=== PATIENT | female | born 1950 | race Caucasian/White ===

== ENCOUNTER 2021-03-25 09:22 | Outpatient (REF) | payer OTHER, SELFPAY ==
[2021-03-25 10:59] LABS: MANUAL DIFF FLAG NO
[2021-03-25 11:03] LABS: Basophils Percent Auto 0.3 % (0-2); Eosinophils Absolute Auto 0.3 X10*3/uL (0.0-0.4); Eosinophils Percent Auto 3.1 % (0-4); Hematocrit 34.8 % (37.0-47.0); Hemoglobin 11.5 g/dl (12.0-16.0); Imm Gran Abs Auto 0.05 X10*3/uL (0.00-0.03); Imm Gran Pct Auto 0.5 % (0.0-0.4); Lymphocytes Absolute Auto 2.5 X10*3/uL (1.2-4.9); Lymphocytes Percent Auto 25.7 % (20-40); Mean Corpuscular Hemoglobin 28.5 pg (27.0-33.0); Mean Corpuscular Volume 86.4 fL (80.0-98.0); Mean Platelet Volume 9.3 fL (9.4-12.3); Monocytes Absolute Auto 0.7 X10*3/uL (0.1-1.2); Monocytes Percent Auto 7.2 % (2-11); Neutrophils Absolute Auto 6.2 x10*3/uL (2.0-8.3); Neutrophils Percent Auto 63.2 % (45-73); Platelet Count 220 X10*3/uL (160-400); Red Blood Count 4.03 X10*6/uL (4.20-5.50); Red Cell Distribution Width 13.8 % (11.0-16.0); White Blood Count 9.7 X10*3/uL (4.8-10.8)
[2021-03-25 11:37] LABS: Alanine Aminotransferase 40 U/L (0-31); Albumin Level 4.4 g/dL (3.5-5.0); Alkaline Phosphatase 90 U/L (39-117); Anion Gap 15 (12-20); Aspartate Amino Transferase 27 U/L (5-31); Bilirubin Total 0.5 mg/dL (0.0-1.0); Blood Urea Nitrogen 10 mg/dL (9-16); Calcium 9.4 mg/dL (8.4-10.2); Carbon Dioxide 27 mmol/L (22-29); Chloride 104 mmol/L (96-108); Cholesterol 188 mg/dL; Estimated Glomerular Filt Rate > 60; Glucose Fasting 115 mg/dL (60-99); HDL Cholesterol 47 mg/dL; LDL Cholesterol Calculated 84 mg/dl; Potassium 4.3 mmol/L (3.3-5.1); Sodium 142 mmol/L (135-145); Total Protein 7.4 g/dL (6.5-8.0); Triglycerides 287 mg/dL
[2021-03-25 12:01] LABS: Free T4 (Free Thyroxine) 1.22 ng/dL (0.71-1.85); Thyroid Stimulating Hormone 4.78 uIU/mL (0.32-4.0); Vitamin D 25-OH Total 59.3 ng/mL (>30)
[2021-03-27 20:01] LABS: Triiodothyronine T3 Total 97 ng/dL (76-181)
== END 2021-03-25 09:23 | disposition home or self-care (01) ==
LOC: HO.WFDLDS 09:22
PROVIDERS: Visit Provider Family Medicine
DX: Z00.00 Encounter for general adult medical examination without abnormal findings (principal); E03.9 Hypothyroidism, unspecified; E55.9 Vitamin D deficiency, unspecified; I10 Essential (primary) hypertension
CPT/HCPCS: 36415; 80053; 80061; 82043; 82306; 84439; 84443; 84480; 85025

== ENCOUNTER 2021-06-16 12:40 | Outpatient (REF) | payer OTHER, SELFPAY ==
[2021-06-16 13:43] LABS: MANUAL DIFF FLAG NO
[2021-06-16 13:47] LABS: Basophils Percent Auto 0.3 % (0-2); Eosinophils Absolute Auto 0.4 X10*3/uL (0.0-0.4); Eosinophils Percent Auto 4.2 % (0-4); Hematocrit 34.4 % (37.0-47.0); Hemoglobin 11.4 g/dl (12.0-16.0); Imm Gran Abs Auto 0.07 X10*3/uL (0.00-0.03); Imm Gran Pct Auto 0.8 % (0.0-0.4); Lymphocytes Absolute Auto 2.4 X10*3/uL (1.2-4.9); Lymphocytes Percent Auto 26.9 % (20-40); Mean Corpuscular HGB Conc 33.1 g/dl (31.0-35.0); Mean Corpuscular Hemoglobin 28.3 pg (27.0-33.0); Mean Corpuscular Volume 85.4 fL (80.0-98.0); Mean Platelet Volume 9.4 fL (9.4-12.3); Monocytes Absolute Auto 0.6 X10*3/uL (0.1-1.2); Monocytes Percent Auto 6.2 % (2-11); Neutrophils Absolute Auto 5.6 x10*3/uL (2.0-8.3); Neutrophils Percent Auto 61.6 % (45-73); Platelet Count 240 X10*3/uL (160-400); Red Blood Count 4.03 X10*6/uL (4.20-5.50); Red Cell Distribution Width 13.9 % (11.0-16.0); White Blood Count 9.1 X10*3/uL (4.8-10.8)
[2021-06-16 13:57] LABS: Appearance Urine CLEAR; Color Urine YELLOW; Glucose Urine UA NEG (NEG); Leukocyte Esterase Urine 1+ (NEG); Nitrite Urine NEG (NEG); PH 5.5 (5.0-8.0); Specific Gravity - Urine 1.015 (1.005-1.025); Urine Blood NEG (NEG); Urine Ketones NEG (NEG); Urine Protein NEG (NEG-TRACE)
[2021-06-16 14:11] LABS: Estimated Average Glucose 148 mg/dL; Hemoglobin A1c % 6.8 %
[2021-06-16 14:17] LABS: RBC Urine 0-2 /HPF (0); Squamous Epithelial Cell Urine TRACE /LPF
[2021-06-16 14:23] LABS: Alanine Aminotransferase 31 U/L (0-31); Albumin Level 4.3 g/dL (3.5-5.0); Alkaline Phosphatase 86 U/L (39-117); Anion Gap 11 (12-20); Aspartate Amino Transferase 22 U/L (5-31); Bilirubin Total 0.4 mg/dL (0.0-1.0); Blood Urea Nitrogen 15 mg/dL (9-16); Calcium 9.7 mg/dL (8.4-10.2); Carbon Dioxide 30 mmol/L (22-29); Chloride 104 mmol/L (96-108); Estimated Glomerular Filt Rate > 60; Glucose Fasting 126 mg/dL (60-99); Potassium 4.4 mmol/L (3.3-5.1); Sodium 141 mmol/L (135-145); Total Protein 7.3 g/dL (6.5-8.0)
[2021-06-16 14:44] LABS: TSH reflex Free T4 1.75 uIU/mL (0.32-4.0)
== END 2021-06-16 12:41 | disposition home or self-care (01) ==
LOC: HO.WFDLDS 12:40
PROVIDERS: Visit Provider Family Medicine
DX: Z00.00 Encounter for general adult medical examination without abnormal findings (principal); I10 Essential (primary) hypertension; R73.01 Impaired fasting glucose
CPT/HCPCS: 36415; 80053; 81001; 83036; 84443; 85025

== ENCOUNTER 2022-06-11 12:44 | Outpatient (REF) | payer OTHER, SELFPAY ==
--- NOTE | ~2022-06-11 | XR_ITS ---
EXAMINATION: XR CHEST, 2 VIEWS CLINICAL INFORMATION: Cough, unspecified. COMPARISON: None. TECHNIQUE: PA and lateral views of the chest were obtained. FINDINGS: Lungs are clear. Mild elevation of the right hemidiaphragm. No consolidation, pneumothorax, or pleural effusion. Cardiac and mediastinal contours are normal. Pulmonary vasculature is unremarkable. Trachea is midline. Degenerative spondylosis is present in the thoracic spine, mild to moderate. No acute fractures. No acute osseous findings. XR/XR chest 2V IMPRESSION: No acute pulmonary findings.
[2022-06-11 15:15] LABS: Influenza A PCR NEGATIVE (Negative); Influenza B PCR NEGATIVE (Negative); Resp Syncy Virus RNA Qual PCR NEGATIVE (Negative); SARS COV2 PCR INHOUSE NEGATIVE (Negative)
== END 2022-06-11 12:45 | disposition home or self-care (01) ==
LOC: HO.XRAY 12:44
PROVIDERS: PCP Family Medicine; Visit Provider Family Medicine
DX: R05.9 Cough, unspecified (principal); E03.9 Hypothyroidism, unspecified; I10 Essential (primary) hypertension; R09.89 Other specified symptoms and signs involving the circulatory and respiratory systems; Z20.822 Contact with and (suspected) exposure to COVID-19
CPT/HCPCS: 0241U; 71046

== ENCOUNTER 2022-08-06 09:50 | Outpatient (REF) | payer OTHER, SELFPAY ==
[2022-08-06 11:53] LABS: Appearance Urine Clear; Color Urine Yellow; Glucose Urine UA Negative (Negative); Leukocyte Esterase Urine Moderate (2+) (Negative); Nitrite Urine Negative (Negative); PH 5.5 (5.0-9.0); UMIC TRIGGER UA YES; Urine Blood Negative (Negative); Urine Ketones Negative (Negative); Urine Protein Negative (Neg-Trace)
[2022-08-06 11:57] LABS: Bacteria Urine None Seen (None Seen); Hyaline Casts Urine 0-2 /LPF (0-2); RBC Urine 0-2 /HPF (0-2); Squamous Epithelial Cell Urine 0-2 /HPF (0-2)
[2022-08-06 12:18] LABS: Creatinine Urine 74.47 mg/dL; Microalbum/Creatinine Ratio Ur 13.4 ug/mg cr
[2022-08-06 12:35] LABS: Alanine Aminotransferase 20 U/L (0-31); Albumin Level 4.1 g/dL (3.5-5.0); Alkaline Phosphatase 82 U/L (39-117); Anion Gap 15 (12-20); Aspartate Amino Transferase 15 U/L (5-31); Bilirubin Total 0.5 mg/dL (0.0-1.0); Blood Urea Nitrogen 15 mg/dL (9-16); Carbon Dioxide 26 mmol/L (22-29); Chloride 106 mmol/L (96-108); Cholesterol 190 mg/dL; Estimated Glomerular Filt Rate > 60; Glucose Fasting 96 mg/dL (60-99); HDL Cholesterol 48 mg/dL; LDL Cholesterol Calculated 92 mg/dl; Potassium 4.6 mmol/L (3.3-5.1); Sodium 142 mmol/L (135-145); Total Protein 6.8 g/dL (6.5-8.0); Triglycerides 252 mg/dL
[2022-08-06 12:39] LABS: Free T4 (Free Thyroxine) 1.11 ng/dL (0.71-1.85); Thyroid Stimulating Hormone 0.71 uIU/mL (0.32-4.0)
[2022-08-08 10:14] LABS: Triiodothyronine T3 Total 118 ng/dL (76-181)
== END 2022-08-06 09:51 | disposition home or self-care (01) ==
LOC: HO.WFDLDS 09:50
PROVIDERS: Visit Provider Family Medicine
DX: Z00.00 Encounter for general adult medical examination without abnormal findings (principal); E03.9 Hypothyroidism, unspecified; R05.9 Cough, unspecified; I10 Essential (primary) hypertension
CPT/HCPCS: 36415; 80053; 80061; 81001; 82043; 84439; 84443; 84480

== ENCOUNTER 2022-08-13 16:15 | Outpatient (REF) | payer OTHER, SELFPAY ==
--- NOTE | ~2022-08-13 | XR_ITS ---
EXAMINATION: XR KNEE, LEFT CLINICAL INFORMATION: Pain COMPARISON: None available. TECHNIQUE: Three views of the left knee. FINDINGS: Bone alignment is normal. No fracture or dislocation. Mild joint space narrowing at the medial femoral tibial joint. Joint spaces are otherwise normal. No joint effusion. XR/XR knee LT 3V IMPRESSION: Mild joint space narrowing at the medial femoral tibial joint.
== END 2022-08-13 16:16 | disposition home or self-care (01) ==
LOC: HO.XRAY 16:15
PROVIDERS: PCP Family Medicine; Visit Provider Family Medicine
DX: M25.562 Pain in left knee (principal)
CPT/HCPCS: 73562

== ENCOUNTER 2022-09-15 08:35 | Outpatient (REF) | payer OTHER, SELFPAY ==
--- NOTE | ~2022-09-15 | XR_ITS ---
EXAMINATION: XR KNEE AP STANDING CLINICAL INFORMATION: Right knee pain. COMPARISON: None available. TECHNIQUE: AP bilateral standing view of the knees was obtained. FINDINGS: On this single view, no acute fracture or dislocation of the right or left knee is identified. There is narrowing of the medial joint space compartments bilaterally, right greater than left, with marginal spurring on the right. Bony density about the lateral aspect of the right knee may represent fabella. XR/XR knee standing BI IMPRESSION: Medial joint space compartment degenerative change.
== END 2022-09-15 08:36 | disposition home or self-care (01) ==
LOC: HO.HOSX 08:35
PROVIDERS: Visit Provider Physician Assistant
DX: M17.12 Unilateral primary osteoarthritis, left knee (principal)
CPT/HCPCS: 20610; 73565; J1020

== ENCOUNTER 2022-11-15 10:43 | Outpatient (AMB) | payer OTHER, SELFPAY ==
[2022-11-15 10:49] VITALS: BP 144/78; PULSE 84; RESP 12; TEMP 36.7; O2SAT 98; BMI 38.5
--- NOTE | 2022-11-15 10:49 | A.OFFPC_ITS ---
Vital Signs 11/15/22 10:49 Height 5 ft 1 in Weight 204 lb BMI 38.5 BP 144/78 H Blood Pressure Location Rt brachial Position Sitting Respiration 12 Pulse 84 Pulse Source Pulse Oximeter Temp 98.1 F Temp Source Temporal Artery Scan Pulse Oximetry (%) 98 Oxygen Delivery Method Room Air Intake Visit Reasons: f/u diabetes and chronic conditions Preparer Required: No Accompanied by: Self / Same As Patient Allergies erythromycin base Allergy (Unknown, Verified 11/15/22 10:55) unknown meperidine [From Demerol] Allergy (Unknown, Verified 11/15/22 10:55) Unknown morphine Allergy (Unknown, Verified 11/15/22 10:55) unknown Sulfa (Sulfonamide Antibiotics) Allergy (Unknown, Verified 11/15/22 10:55) unknown Tobacco use date assessed: 06/11/22 Fall risk assessment: No Falls in past year Last assessed Fall Risk: 11/15/22 Dental Screening Dental Screen Date: 11/15/22 Did you have a dental visit in the last 12 months?: No Did you have a dental problem in the last 6 months where you did not have access to dental care?: No Was dental information given to patient?: Patient has dentist HPI f/u diabetes and chronic conditions HPI Details 72 y/o female presents to f/u diabetes and chronic conditions. A1c today 11/15/22 is 6.1%. She is on metformin 500mg, Trulicity 0.75mg daily. Blood pressure today is 144/78. She is on losartan 50mg, metoprolol. She denies any problems with this medication regimen. She does not check her blood pressure at home. She states she could work on a better diet. She does not exercise much. HPI Comments History of Present Illness Details Documentation assistance for Vince Benavidez MD, was provided by Mehul Bright,? Operations Executive on 11/15/2022 11:18 AM NATALEE. I, Dr. Benavidez, have read, observed, and verified documentation.? 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 Sudeep Reyes, Lacie Dodd, Santana Hodges and colleagues, with an educational faustino from [employer]. Review of Systems Const Denies chills, Denies fatigue, Denies fever(s), Denies headache(s) and Denies weakness ENT Denies dizziness and Denies headache(s) Card Denies chest pain, Denies lightheadedness, Denies dyspnea and Denies other (Palpitations) Resp Denies cough, Denies dyspnea, Denies wheezing and Denies other ( shortness of breath) Musc Denies numbness and Denies tingling Neuro Denies dizziness, Denies headache(s), Denies numbness, Denies tingling, Denies paresthesias and Denies weakness Psych Denies anxiety and Denies depression Endo Denies fatigue Aller/Immun Denies wheezing Physical exam (Primary Care) Vital Signs: Last Vital Signs Temp 98.1 F 11/15/22 10:49 Pulse 84 11/15/22 10:49 Resp 12 11/15/22 10:49 BP 144/78 H 11/15/22 10:49 Pulse Ox 98 11/15/22 10:49 Oxygen Delivery Method Room Air 11/15/22 10:49 BMI result Body Mass Index 38.5 Tobacco/Smoking Status: Tobacco use Status Tobacco use date assessed 06/11/22 11/15/22 10:58 Patient Tobacco Use Status Never used Tobacco 11/15/22 10:58 e-Cigarette/Vaping Use Never Used 11/15/22 10:58 Thrive Assessment: Date of Thrive Assessment Date Thrive assessed 06/11/22 11/15/22 10:58 Const General: no acute distress and well developed Nutritional Appearance: well nourished Orientation/consciousness: patient oriented x3 HENMT Head: Yes normocephalic and Yes atraumatic Eyes General: appearance normal, both eyes and all related structures Pupils: Equal, round and reactive pupils present EOM: EOMs intact bilaterally Resp Effort & Inspection: normal respiratory effort Auscultation: clear to auscultation bilaterally Cardio Rate: regular rate Rhythm: regular rhythm Heart sounds: S1 normal heart sound present, S2 normal heart sound present, no gallops, no murmurs and no rubs Neuro General: patient oriented x3 and gait normal Cranial nerves: Yes Equal, round and reactive pupils present Psych Affect: normal affect Results AMB Hemoglobin A1c AMB Hemoglobin A1c 6.1 % Last Edit by Delicia Mendiola CMA on 11/15/22 11:18 Results Reviewed Results Reviewed: Laboratory Last Values Hgb A1c (Clinic) 6.1 % (4.0-6.0) H 11/15/22 11:17 Assessment and Plan Assessment & Plan (1) Diabetes mellitus: Code(s): E11.9 - Type 2 diabetes mellitus without complications Plan: A1c today 6.1%. Good control. Goal is less than 7.0% Continue current medication (2) Essential hypertension: Code(s): I10 - Essential (primary) hypertension Plan: Blood pressure is a little above her controlled range. No medication changes today. Work at diet and exercise Follow-up at next visit Orders: Orders AMB Hemoglobin A1c Today Z13.9 - Encounter for screening, unspecified Coding Level of Care Code Est Pt Level 3 (32385) Diagnoses Diabetes mellitus E11.9 Essential hypertension I10
== END 2022-11-15 11:25 | disposition home or self-care (01) ==
PROVIDERS: Visit Provider Family Medicine
DX: E11.9 Type 2 diabetes mellitus without complications (principal); I10 Essential (primary) hypertension; Z13.9 Encounter for screening, unspecified
CPT/HCPCS: 83036; 99213

== ENCOUNTER 2023-03-30 08:26 | Outpatient (AMB) | payer OTHER, SELFPAY ==
--- NOTE | 2023-03-30 08:27 | MHC.PC.OV ---
Vital Signs 03/30/23 08:37 Height 5 ft 1 in Weight 209 lb 2 oz BMI 39.5 BP 142/82 H Blood Pressure Location Rt brachial Position Sitting Respiration 12 Pulse 77 Pulse Source Pulse Oximeter Pulse Oximetry (%) 94 Oxygen Delivery Method Room Air Intake Visit Reasons: f/u diabetes and hypertension Intake Note: Patient is here to follow up for diabetes and hypertension. Patient's last A1C was 6.1 on 11/15/22. Patient's A1c today is 6.6. Patient would like to discuss metoprolol dose- she states she was taking 50mg prior to her last refill, then she was giving 25mg. She would like clarification. Patient is also here for ringing in the ears. She states she's had this ringing for several years however it has worsened over the last 6 months and driving her crazy. Senior Consultant Required: No Accompanied by: Self / Same As Patient Allergies erythromycin base Allergy (Unknown, Verified 03/30/23 08:43) unknown meperidine [From Demerol] Allergy (Unknown, Verified 03/30/23 08:43) Unknown morphine Allergy (Unknown, Verified 03/30/23 08:43) unknown Sulfa (Sulfonamide Antibiotics) Allergy (Unknown, Verified 03/30/23 08:43) unknown Medication List - Last Reconciled 03/30/23 by Vince Benavidez MD atorvastatin 40 mg PO DAILY 90 days blood sugar diagnostic (FreeStyle Lite Strips) DX: E11.9, test blood sugar once a day, 90 days blood-glucose meter (FreeStyle Lite Meter kit) DX: E11.9, test blood sugar once a day. 999days clonidine HCl 0.05 mg (1/2 x 0.1 mg) PO BID 90 days dulaglutide (Trulicity) 0.75 mg (0.5 mL) subcut QWEEK 28 days lancets (FreeStyle Lancets) To test blood sugar once a day As directed, 90 days levothyroxine 125 mcg PO DAILY losartan 50 mg PO BID 90 days metformin 500 mg PO DAILY 90 days metoprolol succinate ER 25 mg PO DAILY omeprazole 20 mg PO DAILY 90 days valacyclovir 500 mg PO DAILY venlafaxine 75 mg PO DAILY 90 days Tobacco use date assessed: 06/11/22 HPI f/u diabetes and hypertension HPI Details 72 y/o female presents to f/u diabetes and hypertension. Last A1c 7/17/23 6.1%. A1c today 03/30/23 is 6.6%. She reports last diabetic eye exam was in January and is up to date. Blood pressure today is 142/82. She is on losartan 50mg b.i.d, metoprolol 25mg and clonidine 0.05mg b.i.d. She has complaints of ringing in her ears. She has not had any hearing testing before. 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 Sudeep Reyes, Lacie Dodd, Santana Hodges and colleagues, with an educational faustino from [employer]. Review of Systems Const Denies chills, Denies fatigue, Denies fever(s), Denies headache(s) and Denies weakness ENT Denies dizziness and Denies headache(s) Card Denies dyspnea Resp Denies cough, Denies dyspnea, Denies wheezing and Denies other (shortness of breath) Musc Denies numbness and Denies tingling Neuro Denies dizziness, Denies headache(s), Denies numbness, Denies tingling and Denies weakness Psych Denies anxiety and Denies depression Endo Denies fatigue Aller/Immun Denies wheezing Physical exam (Primary Care) Vital Signs: Last Vital Signs Pulse 77 03/30/23 08:37 Resp 12 03/30/23 08:37 BP 142/82 H 03/30/23 08:37 Pulse Ox 94 03/30/23 08:37 Oxygen Delivery Method Room Air 03/30/23 08:37 BMI result Body Mass Index 39.5 Tobacco/Smoking Status: Tobacco use Status Tobacco use date assessed 06/11/22 03/30/23 08:29 Patient Tobacco Use Status Never used Tobacco 03/30/23 08:29 e-Cigarette/Vaping Use Never Used 03/30/23 08:29 Thrive Assessment: Date of Thrive Assessment Date Thrive assessed 06/11/22 03/30/23 08:29 Const General: well developed; No acute distress Nutritional Appearance: obese Orientation/consciousness: patient oriented x3 HENMT Head: Yes normocephalic and Yes atraumatic Eyes General: appearance normal, both eyes and all related structures Pupils: Equal, round and reactive pupils present EOM: EOMs intact bilaterally Resp Effort & Inspection: normal respiratory effort Auscultation: clear to auscultation bilaterally Cardio Rate: regular rate Rhythm: regular rhythm Heart sounds: S1 normal heart sound present, S2 normal heart sound present, no gallops, no murmurs and no rubs Neuro General: patient oriented x3 and gait normal Cranial nerves: Yes Equal, round and reactive pupils present Psych Affect: normal affect Results AMB Hemoglobin A1c AMB Hemoglobin A1c 6.6 % Last Edit by Ruth Velasquez CMA on 03/30/23 08:44 Results Reviewed Results Reviewed: Laboratory Last Values Hgb A1c (Clinic) 6.6 % (4.0-6.0) H 03/30/23 08:44 Assessment and Plan Assessment & Plan (1) Diabetes mellitus: Code(s): E11.9 - Type 2 diabetes mellitus without complications Plan: A1c?6.6%?is?good?control.??Goal?is?less?than?7.0% Continue?current?medication?regimen Up-to-date?with?eye?exam?which?was?in?January?with?Dr. Payan. Patient?reports?there?were?no?concerns?but?I?do?not?have?the?report?so?I?am?requesting?this. (2) Essential hypertension: Code(s): I10 - Essential (primary) hypertension Plan: Blood?pressure?is?a?little?elevated?again. Metoprolol?was?at?25?mg?daily?and?I?am?increasing?this?back?to?50?mg?daily (3) Tinnitus: Code(s): H93.19 - Tinnitus, unspecified ear Plan: Worsening?tinnitus.??Now?bilateral Will?send?her?to?speech?and?hearing?for?audiometry May?need?referral?to?ENT?or?imaging?though?we?discussed?that?there?is?often?not?much?that?can?be?done?for?idiopathic?tinnitus Advised?white?noise?when?sleeping Orders: Orders AMB Hemoglobin A1c Today Z13.9 - Encounter for screening, unspecified Medications: Changed From metoprolol succinate ER 25 mg PO DAILY 90 tabs 0RF To metoprolol succinate ER 50 mg PO DAILY 90 tabs 2RF 90 days Coding Level of Care Code Est Pt Level 4 (19369) Diagnoses Diabetes mellitus E11.9 Essential hypertension I10 Tinnitus H93.19
[2023-03-30 08:37] VITALS: BP 142/82; PULSE 77; RESP 12; O2SAT 94; BMI 39.5
== END 2023-03-30 09:12 | disposition home or self-care (01) ==
PROVIDERS: PCP Family Medicine; Visit Provider Family Medicine
DX: E11.9 Type 2 diabetes mellitus without complications (principal); I10 Essential (primary) hypertension; H93.13 Tinnitus, bilateral
CPT/HCPCS: 83036; 99214

== ENCOUNTER 2023-06-27 08:52 | Outpatient (AMB) | payer OTHER, SELFPAY ==
[2023-06-27 08:54] VITALS: BP 138/80; PULSE 78; RESP 13; TEMP 36.3; O2SAT 98; BMI 40.5
--- NOTE | 2023-06-27 08:54 | A.OFFPC_ITS ---
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 Required: No Accompanied by: Self / Same As Patient Allergies erythromycin base Allergy (Unknown, Verified 06/27/23 09:10) unknown meperidine [From Demerol] Allergy (Unknown, Verified 06/27/23 09:10) Unknown morphine Allergy (Unknown, Verified 06/27/23 09:10) unknown Sulfa (Sulfonamide Antibiotics) Allergy (Unknown, Verified 06/27/23 09:10) unknown Medication List - Last Reconciled 06/27/23 by Richmond Garcia CNP atorvastatin 40 mg PO DAILY 90 days blood sugar diagnostic (FreeStyle Lite Strips) DX: E11.9, test blood sugar once a day, 90 days blood-glucose meter (FreeStyle Lite Meter kit) DX: E11.9, test blood sugar once a day. 999days clonidine HCl 0.05 mg (1/2 x 0.1 mg) PO BID 90 days dulaglutide (Trulicity) 0.75 mg (0.5 mL) subcut QWEEK 28 days lancets (FreeStyle Lancets) To test blood sugar once a day As directed, 90 days levothyroxine 125 mcg PO DAILY losartan 50 mg PO BID 90 days metformin 500 mg PO DAILY 90 days metoprolol succinate ER 50 mg PO DAILY 90 days omeprazole 20 mg PO DAILY 90 days valacyclovir 500 mg PO DAILY venlafaxine 75 mg PO DAILY 90 days Tobacco use date assessed: 06/27/23 Fall risk assessment: 1 Fall in past year Last assessed Fall Risk: 06/27/23 Dental Screening Dental Screen Date: 06/27/23 Did you have a dental visit in the last 12 months?: Yes Did you have a dental problem in the last 6 months where you did not have access to dental care?: No Was dental information given to patient?: Patient has dentist HPI HPI Comments History of Present Illness Details 72-year-old female presents for diabetes and hypertension follow-up She admits to taking her medications as prescribed without adverse reactions She notes that her diet has been poor. She has been eating lots of carbs. 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 Sudeep Reyes, Lacie Dodd, Santana Hodges and colleagues, with an educational faustino from [employer]. Review of Systems Const Details: Const Denies chills, Denies fatigue, Denies fever(s), Denies headache(s) and Denies weakness ENT Denies dizziness and Denies headache(s) Card Denies chest pain, Denies lightheadedness, Denies dyspnea and Denies other (Palpitations) Resp Denies cough, Denies dyspnea, Denies wheezing and Denies other ( shortness of breath) GI Denies abdominal pain, Denies melena, Denies hematochezia, Denies change in bowel habits, Denies dyspepsia and Denies nausea Denies hematuria and Denies dysuria Musc Denies abnormal gait, Denies numbness and Denies tingling Skin/Breast Denies rash, Denies unusual bruising and Denies wounds Neuro Denies abnormal gait, Denies dizziness, Denies headache(s), Denies memory loss, Denies numbness, Denies Sensory deficit (Neuro), Denies tingling and Denies weakness Psych Denies anxiety, Denies depression, Denies memory loss Endo Denies cold intolerance, Denies fatigue, Denies heat intolerance, Denies polydipsia and Denies polyuria Aller/Immun Denies wheezing Physical exam (Primary Care) Vital Signs: Last Vital Signs Temp 97.3 F 06/27/23 08:54 Pulse 78 06/27/23 08:54 Resp 13 06/27/23 08:54 BP 138/80 06/27/23 08:54 Pulse Ox 98 06/27/23 08:54 Oxygen Delivery Method Room Air 06/27/23 08:54 BMI result Body Mass Index 40.5 Tobacco/Smoking Status: Tobacco use Status Tobacco use date assessed 06/27/23 06/27/23 09:06 Patient Tobacco Use Status Never used Tobacco 06/27/23 08:54 e-Cigarette/Vaping Use Never Used 06/27/23 08:54 Thrive Assessment: Date of Thrive Assessment Date Thrive assessed 06/11/22 06/27/23 08:54 Const Other: General: no acute distress and well developed Nutritional Appearance: well nourished Orientation/consciousness: patient oriented x3 HENMT Head: Yes normocephalic and Yes atraumatic Eyes General: appearance normal, both eyes and all related structures Pupils: Equal, round and reactive pupils present EOM: EOMs intact bilaterally Resp Effort & Inspection: normal respiratory effort Auscultation: clear to auscultation bilaterally Cardio Rate: regular rate Rhythm: regular rhythm Heart sounds: S1 normal heart sound present, S2 normal heart sound present, no gallops, no murmurs and no rubs GI Palpation (GI): No Abdominal aortic bruit present, Soft to palpation, nontender, No hepatosplenomegaly present and No Rebound tenderness present Auscultation: normal bowel sounds General: Yes no CVA tenderness Back/Spine/Pelvis Back: no CVA tenderness Cervical Spine: cervical ROM normal and No Cervical spine tenderness Thoracic/Lumbar Spine: thoraco-lumbar ROM normal, No pain with thoraco-lumbar ROM, No thoracic spinal tenderness and No lumbar spinal tenderness Extrem General: Yes normal to inspection, No edema and No calf tenderness Skin General: warm and dry. Normal skin color. Normal skin turgor Neuro General: patient oriented x3, gait normal and no focal neuro deficit Cranial nerves: Yes Equal, round and reactive pupils present Cognition (Neuro): normal cognition Gait exam (Neuro): Normal gait present Sensory Exam: No Sensory deficit (Neuro) Psych Appearance: grossly normal Affect: normal affect Attitude: cooperative Thought process: Normal thought process present Results AMB Hemoglobin A1c AMB Hemoglobin A1c 7.3 % Last Edit by Blanka Haynes MA on 06/27/23 09:12 Assessment and Plan Assessment & Plan (1) Essential hypertension: Code(s): I10 - Essential (primary) hypertension Plan: Resting blood pressure is 144/80, above goal of less than 130/80. Heart rate is 76 Will increase metoprolol ER to 75 mg daily. Take as prescribed Continue to take losartan as prescribed Low-sodium diet and routine exercise encouraged Advised to monitor blood pressure daily, reports readings consistently above 130/80 or below 100/60, heart rate below 60, or dizziness or lightheadedness Follow-up in 2 months for an extended physical exam and hypertension Return sooner with worsening or new symptoms Verbalized understanding and agreed with treatment plan (2) Diabetes mellitus: Code(s): E11.9 - Type 2 diabetes mellitus without complications Plan: A1c today is 7.3%, above goal of less than 7.0%. Previous A1c was 6.6% Will increase Trulicity to 1 mg weekly. Take as prescribed Continue to take metformin 500 mg daily ADA diet and routine exercise encouraged Follow-up with PCP in 3 months Verbalized understanding and agreed with treatment plan (3) Osteoarthritis of left knee: Code(s): M17.12 - Unilateral primary osteoarthritis, left knee Plan: Continue to take Tylenol as needed Warm/cold compresses encouraged Follow-up with Ortho as planned Return with worsening or new symptoms Verbalized understanding and agreed with treatment plan Orders: Orders AMB Hemoglobin A1c Today E11.9 - Type 2 diabetes mellitus without complications Medications: New metoprolol succinate ER Take with metoprolol 50 mg daily to equal 75 mg daily 25 mg PO DAILY 90 tabs 3RF 90 days metoprolol succinate ER 25 mg PO DAILY 90 days 90 tabs 3RF dulaglutide (Trulicity) 1 mg (0.3333 mL) subcut QWEEK 28 days 1.333 mL 3RF Discontinued dulaglutide (Trulicity) Discontinued Reason: Doctor's Order 0.75 mg (0.5 mL) subcut QWEEK 28 days 2 mL 4RF Coding Level of Care Code Est Pt Level 4 (01337) Diagnoses Essential hypertension I10 Diabetes mellitus E11.9 Osteoarthritis of left knee M17.12
[2023-06-27 09:16] VITALS: BP 144/80; PULSE 76
== END 2023-06-27 10:03 | disposition home or self-care (01) ==
PROVIDERS: PCP Family Medicine; Visit Provider Nurse Practitioner Family
DX: I10 Essential (primary) hypertension (principal); E11.9 Type 2 diabetes mellitus without complications; M17.12 Unilateral primary osteoarthritis, left knee
CPT/HCPCS: 83036; 99214

== ENCOUNTER 2023-07-25 10:52 | Outpatient (AMB) | payer OTHER, SELFPAY ==
--- NOTE | 2023-07-25 11:00 | MHC.OFFVIS ---
Intake Vital Signs 07/25/23 11:04 Height 5 ft 1 in Weight 214 lb BMI 40.4 Intake Visit Reasons: ov-Lt Knee Pain last injection 09/15/22 Intake Note: Inga olsen 72 year old female presents today for a follow up of left knee, last injection on 09/15/22. Patient reports last injection provided her with relief until about mid June. Allergies erythromycin base Allergy (Unknown, Verified 07/25/23 11:07) unknown meperidine [From Demerol] Allergy (Unknown, Verified 07/25/23 11:07) Unknown morphine Allergy (Unknown, Verified 07/25/23 11:07) unknown Sulfa (Sulfonamide Antibiotics) Allergy (Unknown, Verified 07/25/23 11:07) unknown HPI ov-Lt Knee Pain last injection 09/15/22 HPI Details 72-year-old female returns to the office today for a follow-up left knee pain. Her last injection was in August of 2022 she states she had results up until recently. She is able to participate in all activities without discomfort. She states over the last several weeks she has had difficulty with prolonged walking. She has pain with sitting to standing. 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 Current occupational exposures/hazards: No Cognitive needs: No Hearing needs: No Vision needs: Yes Review of Systems Const All systems reviewed & are unremarkable except as noted in HPI and below Physical Exam Vital Signs: BMI result Body Mass Index 40.4 Const General: cooperative, healthy appearing, comfortable, no acute distress, well developed and alert Orientation/consciousness: patient oriented x3 HEENT Head: Yes normal to inspection, Yes normocephalic and Yes atraumatic Eyes General: appearance normal, both eyes and all related structures Resp Effort & Inspection: normal respiratory effort and able to speak in complete sentences Cardio Rate: regular rate Peripheral pulses: Peripheral pulses 2+ throughout GI Palpation (GI): Soft to palpation Skin Lesions: no lesions Rashes: no rashes Neuro General: patient oriented x3 Extrem Other: Left knee skin intact, no erythema or joint effusion. Tenderness along the medial joint line. Full ROM with crepitus. Negative Bright?s. No ligamentous laxity. NVI. Office Procedures Joint Injection/Drain Joint Injection/Drain Primary Site: left knee Prep: site was prepped using aseptic technique, ethochloride spray was applied and injection warnings given Injected: 40 mg of, DepoMedrol, with 8 mL of, 1% plain lidocaine and in the joint Approach Used: anterolateral Procedure: The patient tolerated the procedure well and there was some relief with the local anesthesia Coding 15197 - Glenohumeral/Tronchanteric Bursa/Intraarticular Procedure code (CPT) selection complete Assessment & Plan Assessment & Plan (1) Osteoarthritis of left knee: Code(s): M17.12 - Unilateral primary osteoarthritis, left knee Qualifiers: Osteoarthritis type: primary Qualified Code(s): M17.12 - Unilateral primary osteoarthritis, left knee Plan We discussed options today which include steroid injection. They did consent to move forward with the injection in the right knee, which was tolerated well. I recommended rest, ice and elevation and OTC anti-inflammatories PRN for discomfort. She was also given a course of physical therapy in the office today, which she mentioned she will take to an outside facility as it is closer to her home. We also discussed their diabetes and the effect the steroid can have on their blood glucose levels; therefore, they will continue to monitor these very closely over the next 72 hours. If there are any concerns, they should report to the ED immediately. She will contact our office in 6-8 weeks if symptoms persist, otherwise, prn. Coding Level of Care Code Est Pt Level 3 (64451) Diagnoses Primary osteoarthritis of left knee M17.12 Osteoarthritis type: primary CPT Codes Coding - Joint 7: 19079 - Glenohumeral/Tronchanteric Bursa/Intraarticular ([id number])
[2023-07-25 11:04] VITALS: BMI 40.4
== END 2023-07-25 11:31 | disposition home or self-care (01) ==
PROVIDERS: PCP Family Medicine; Visit Provider Physician Assistant
DX: M17.12 Unilateral primary osteoarthritis, left knee (principal)
CPT/HCPCS: 20610; 99213

== ENCOUNTER → 2023-07-25 10:52 | Outpatient (BNVA) | payer OTHER, SELFPAY | PROVIDERS: PCP Family Medicine; Visit Provider Physician Assistant | DX: M17.12 Unilateral primary osteoarthritis, left knee (principal) | CPT/HCPCS: 20610; J1020 ==

== ENCOUNTER 2023-08-22 08:24 | Outpatient (AMB) | payer OTHER, SELFPAY ==
--- NOTE | 2023-08-22 08:29 | MHC.PC.OV ---
Vital Signs 08/22/23 08:37 Height 5 ft 1 in Weight 214 lb BMI 40.4 BP 130/70 Blood Pressure Location Lt brachial Position Sitting Respiration 14 Pulse 67 Pulse Source Pulse Oximeter Temp 98.6 F Temp Source Oral Pulse Oximetry (%) 97 Oxygen Delivery Method Room Air Intake Visit Reasons: f/u diabetes and hypertension Intake Note: Follow up diabetes and hypertension. Allergies erythromycin base Allergy (Unknown, Verified 08/22/23 08:31) unknown meperidine [From Demerol] Allergy (Unknown, Verified 07/25/23 11:07) Unknown morphine Allergy (Unknown, Verified 07/25/23 11:07) unknown Sulfa (Sulfonamide Antibiotics) Allergy (Unknown, Verified 07/25/23 11:07) unknown Medication List - Last Reconciled 08/22/23 by Vince Benavidez MD atorvastatin 40 mg PO DAILY 90 days blood sugar diagnostic (FreeStyle Lite Strips) DX: E11.9, test blood sugar once a day, 90 days blood-glucose meter (FreeStyle Lite Meter kit) DX: E11.9, test blood sugar once a day. 999days clonidine HCl 0.05 mg (1/2 x 0.1 mg) PO BID 90 days lancets (FreeStyle Lancets) To test blood sugar once a day As directed, 90 days levothyroxine 125 mcg PO DAILY losartan 50 mg PO BID 90 days metformin 500 mg PO DAILY 90 days metoprolol succinate ER 25 mg PO DAILY 90 days metoprolol succinate ER 50 mg PO DAILY 90 days omeprazole 20 mg PO DAILY 90 days semaglutide (Ozempic) 0.25 mg (0.368 mL) subcut QWEEK 28 days valacyclovir 500 mg PO DAILY venlafaxine 75 mg PO DAILY 90 days Tobacco use date assessed: 08/22/23 Fall risk assessment: 2 + Falls in past year Last assessed Fall Risk: 08/22/23 Dental Screening Dental Screen Date: 08/22/23 Did you have a dental visit in the last 12 months?: Yes Did you have a dental problem in the last 6 months where you did not have access to dental care?: No Was dental information given to patient?: Patient has dentist HPI f/u diabetes and hypertension HPI Details 72 y/o female presents to f/u diabetes, hypertension. Blood pressure today 130/70. She is on losartan 50mg, metoprolol. Pt notes she had been started on ozempic but had been barely able to tolerate this due to burping in the middle of the night. Pt reports ongoing L knee pain - continues to f/u for steroid injections. 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 1. Little interest or pleasure in doing things: not at all 2. Feeling down, depressed, or hopeless: nearly every day 3. Trouble falling or staying asleep, or sleeping too much: not at all 4. Feeling tired or having little energy: nearly every day 5. Poor appetite or overeating: not at all 6. Feeling bad about yourself - or that you are a failure or have let yourself or your family down: not at all 7. Trouble concentrating on things, such as reading the newspaper or watching television: not at all 8. Moving or speaking so slowly that other people could have noticed. Or the opposite - being so fidgety or restless that you have been moving around a lot more than usual: not at all 9. Thoughts that you would be better off or of hurting yourself in some way: not at all Total score: 6 Depression Screening Interpretation: Positive (Takes?venlafaxine.??Does?not?want?any?changes.??Stable) Depression Screening Done: Yes 19252 - PHQ-9 Billing: Yes Source: Developed by Drs. Sudeep Reyes, Lacie Dodd, Santana Hodges and colleagues, with an educational faustino from [employer]. Thrive Questionnaire Date Thrive assessed: 08/22/23 I am a: Patient What is your living situation today?: I have a steady place to live Within the past 12 months, did the food you bought not last and you didn't have the money to get more?: Never true Within the past 12 months, did you worry whether your food would run out before you got money to buy more?: Never true Do you have trouble paying for medicines?: No Do you have trouble getting transportation to medical appointments?: No Do you have trouble paying your heating and electricity bill?: No Do you have trouble taking care of your child, family member or friend?: No Do you have trouble with day-to-day activities such as bathing, preparing meals, shopping, managing finances, etc.?: No Are you currently unemployed and looking for a job?: No Are you interested in more education?: No Please select the resources that you would like help with: None Currently or been in a relationship where the following occur: no concerns reported THRIVE Score: 0 AUDIT C Alcohol Use Questionnaire (AUDIT-C) 1. How often do you have a drink containing alcohol?: Monthly or less 2. How many drinks containing alcohol do you have on a typical day when you are drinking?: 1 or 2 3. How often do you have six or more drinks on one occasion?: Never Total Score: 1 GORAN-7 AMB Questionnaire GORAN-7 Date GORAN - 7 assessed: 08/22/23 Feeling nervous, anxious, or on edge: 3 = Nearly every day Not being able to stop or control worryin = Not at all Worrying too much about different things: 3 = Nearly every day Trouble relaxin = Not at all Being so restless that it is hard to sit still: 0 = Not at all Becoming easily annoyed or irritable: 1 = Several days Feeling afraid as if something awful might happen: 0 = Not at all Total GORAN-7 score (0-4 normal; 5-9 mild; 10-14 moderate; 15-21 severe): 7 Source: Developed by Drs. Sudeep Reyes, Lacie Dodd, Santana Hodges and colleagues, with an educational faustino from [employer]. GORAN-7 Assessment Billing GORAN-7 Assessment Tool: GORAN-7 Assessment 30180 Review of Systems Const Denies chills, Denies fatigue, Denies fever(s), Denies headache(s) and Denies weakness ENT Denies dizziness and Denies headache(s) Card Denies dyspnea Resp Denies cough, Denies dyspnea, Denies wheezing and Denies other (shortness of breath) Musc Denies numbness and Denies tingling Neuro Denies dizziness, Denies headache(s), Denies numbness, Denies tingling and Denies weakness Psych Reports anxiety and Reports depression Endo Denies fatigue Aller/Immun Denies wheezing Physical exam (Primary Care) Vital Signs: Last Vital Signs Temp 98.6 F 08/22/23 08:37 Pulse 67 08/22/23 08:37 Resp 14 08/22/23 08:37 BP 130/70 08/22/23 08:37 Pulse Ox 97 08/22/23 08:37 Oxygen Delivery Method Room Air 08/22/23 08:37 BMI result Body Mass Index 40.4 Tobacco/Smoking Status: Tobacco use Status Tobacco use date assessed 08/22/23 08/22/23 08:38 Patient Tobacco Use Status Never used Tobacco 08/22/23 08:31 e-Cigarette/Vaping Use Never Used 08/22/23 08:31 PHQ-9: PHQ-9 Score PHQ-9: Total score 6 08/22/23 08:44 Depression Screening Interpretation: Positive (Takes?venlafaxine.??Does?not?want?any?changes.??Stable) Thrive Assessment: Date of Thrive Assessment Date Thrive assessed 08/22/23 08/22/23 08:38 Currently or been in a relationship where the following occur: no concerns reported Const General: well developed; No acute distress Nutritional Appearance: well nourished Orientation/consciousness: patient oriented x3 [facility] Head: Yes normocephalic and Yes atraumatic Eyes General: appearance normal, both eyes and all related structures Pupils: Equal, round and reactive pupils present EOM: EOMs intact bilaterally Resp Effort & Inspection: normal respiratory effort Neuro General: patient oriented x3 and gait normal Cranial nerves: Yes Equal, round and reactive pupils present Psych Affect: normal affect Assessment and Plan Assessment & Plan (1) Essential hypertension: Code(s): I10 - Essential (primary) hypertension Plan: Blood?pressure?is?controlled.??Goal?is?less?than?140/90 Continue?current?medication?regimen (2) Diabetes mellitus: Code(s): E11.9 - Type 2 diabetes mellitus without complications Plan: A1c?was?7.3%?about?2?months?ago?and?Trulicity?was?increased?but?she?was?unable?to?get?this. This?was?switched?to?Ozempic?and?she?is?having?more?difficulty?tolerating?the?Ozempic?due?to?GI?discomfort/upset. She?will?continue?at?current?dose.??Also?had?steroid?injection?at?knee?recently. A1c?may?still?be?elevated?at?next?check Encouraged?improved?diabetic?diet?and?exercise?as?tolerated. Recent?eye?exam.??I?do?not?have?the?most?recent?note?and?will?request?this (3) Left knee pain: Code(s): M25.562 - Pain in left knee Plan: Left?knee?pain?and?recent?steroid?injection?which?he?says?has?not?started?working?yet. She?is?hopeful?that?it?will?and?plans?to?get?more?exercise. Follow-up?with?ortho?as?recommended (4) Anxiety and depression: Code(s): F41.9 - Anxiety disorder, unspecified; F32.A - Depression, unspecified Plan: Anxiety?and?depression?which?are?controlled?with?venlafaxine. Patient?declines?any?changes?to?medication?or?other?interventions. Stable Orders: Orders Comprehensive [place]. Panel Fast Today Z00.00 - Encounter for general adult medical examination without abnormal findings Complete Blood Count Auto Diff Today Z00.00 - Encounter for general adult medical examination without abnormal findings Microalbumin, Random (w Creat) Today I10 - Essential (primary) hypertension Thyroid Stimulating Hormone Today E03.9 - Hypothyroidism, unspecified Lipid Panel Today Z00.00 - Encounter for general adult medical examination without abnormal findings UA and rflx microscopic Today Z00.00 - Encounter for general adult medical examination without abnormal findings Free T4 (Free Thyroxine) Today E03.9 - Hypothyroidism, unspecified Triiodothyronine T3 Total Today E03.9 - Hypothyroidism, unspecified Coding Level of Care Code Est Pt Level 4 (65649) Diagnoses Essential hypertension I10 Diabetes mellitus E11.9 Left knee pain M25.562 Anxiety and depression F41.9; F32.A Additional Codes GORAN-7 Assessment Billing - GORAN-7 Assessment Tool: GORAN-7 Assessment 96040 ([id number])
[2023-08-22 08:37] VITALS: BP 130/70; PULSE 67; RESP 14; TEMP 37; O2SAT 97; BMI 40.4
== END 2023-08-22 08:59 | disposition home or self-care (01) ==
PROVIDERS: PCP Family Medicine; Visit Provider Family Medicine
DX: I10 Essential (primary) hypertension (principal); E11.9 Type 2 diabetes mellitus without complications; M25.562 Pain in left knee; F41.9 Anxiety disorder, unspecified; F32.A Depression, unspecified
CPT/HCPCS: 99214

== ENCOUNTER 2023-10-14 09:30 | Outpatient (AMB) | payer OTHER, SELFPAY ==
--- NOTE | 2023-10-14 09:47 | MHC.OFFVIS ---
Vital Signs 10/14/23 09:48 Height 5 ft 1 in Weight 214 lb BMI 40.4 Intake Visit Reasons: OV-Left knee pain-follow up Intake Note: Inga is a 73 year old female who presents today for a follow up visit of her left knee pain s/p injection from 07/25/23. States injection did not helped and cont's to have pain.. Hx of DM. Allergies erythromycin base Allergy (Unknown, Verified 10/14/23 09:57) unknown meperidine [From Demerol] Allergy (Unknown, Verified 10/14/23 09:57) Unknown morphine Allergy (Unknown, Verified 10/14/23 09:57) unknown Sulfa (Sulfonamide Antibiotics) Allergy (Unknown, Verified 10/14/23 09:57) unknown HPI HPI OV-Left knee pain-follow up: Details: 73-year-old female who returns to the office today for a follow-up of left knee pain. She continues to have pain in her knee that is aggravated with ambulation. She has tried ice for her knee that worsened her pain. She had her last injection on 07/25/23 which did not provide her any relief. She would like to repeat the injection. She has a history of diabetes. 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 Current occupational exposures/hazards: No Cognitive needs: No Hearing needs: No Vision needs: Yes Review of Systems Const All systems reviewed & are unremarkable except as noted in HPI and below Physical Exam Vital Signs: BMI result Body Mass Index 40.4 Const General: cooperative, healthy appearing, comfortable, no acute distress, well developed and alert Orientation/consciousness: patient oriented x3 HEENT Head: Yes normal to inspection, Yes normocephalic and Yes atraumatic Eyes General: appearance normal, both eyes and all related structures Resp Effort & Inspection: normal respiratory effort and able to speak in complete sentences Cardio Rate: regular rate Peripheral pulses: Peripheral pulses 2+ throughout GI Palpation (GI): Soft to palpation Skin Lesions: no lesions Rashes: no rashes Neuro General: patient oriented x3 Extrem Other: Left knee skin intact, no erythema or joint effusion. Tenderness along the medial joint line. Full ROM with crepitus. Negative Bright?s. No ligamentous laxity. NVI. Office Procedures Joint Injection/Drain Joint Injection/Drain Primary Site: left knee Prep: site was prepped using aseptic technique, ethochloride spray was applied and injection warnings given Injected: 40 mg of, DepoMedrol, with 8 mL of, 1% plain lidocaine and in the joint Approach Used: anterolateral Procedure: The patient tolerated the procedure well and there was some relief with the local anesthesia Coding 16994 - Glenohumeral/Tronchanteric Bursa/Intraarticular Procedure code (CPT) selection complete Results Reviewed Results Reviewed: Xrays were obtained in the office today and personally reviewed by me of the left knee show mild oa Assessment & Plan Assessment & Plan (1) Osteoarthritis of left knee: Code(s): M17.12 - Unilateral primary osteoarthritis, left knee Category: Medical Qualifiers: Osteoarthritis type: primary Qualified Code(s): M17.12 - Unilateral primary osteoarthritis, left knee Plan We discussed options today, which include steroid injection. The patient did consent to move forward with the left knee injection, which was tolerated well. I recommended rest, ice, and elevation and OTC anti-inflammatories as needed for discomfort. If symptoms persist or worsen over the next 6-8 weeks, patient will contact the office, otherwise follow-up as needed. We will also obtain a prior authorization for gel injection of left knee. Orders: Orders XR knee LT 3V 10/14/23 M25.562 - Pain in left knee MR knee LT wo con 10/14/23 M17.12 - Unilateral primary osteoarthritis, left knee Patient Instructions: Scribed for Ariela Wood PA-C, by Pradip Hutson medical office asst, on 10/14/2023 at 9:30 AM EST.? I, Ariela Wood PA-C, have personally reviewed and agree with the information entered by the scribe. Coding Level of Care Code Est Pt Level 3 (73745) Diagnoses Primary osteoarthritis of left knee M17.12 Osteoarthritis type: primary CPT Codes Coding - Joint 7: 06926 - Glenohumeral/Tronchanteric Bursa/Intraarticular ([id number])
[2023-10-14 09:48] VITALS: BMI 40.4
== END 2023-10-14 10:35 | disposition home or self-care (01) ==
PROVIDERS: PCP Family Medicine; Visit Provider Physician Assistant
DX: M17.12 Unilateral primary osteoarthritis, left knee (principal)
CPT/HCPCS: 20610; 99213

== ENCOUNTER 2023-10-14 09:30 | Outpatient (REF) | payer OTHER, SELFPAY ==
--- NOTE | ~2023-10-14 | XR_ITS ---
EXAMINATION: XR KNEE, LEFT XR KNEE, LIMITED, RIGHT CLINICAL INFORMATION: Pain in the left knee. COMPARISON: X-rays of both knees 09/15/2022. X-rays of the left knee 08/13/2022. TECHNIQUE: AP upright both knees. Additional lateral patella view of the left knee. FINDINGS: LEFT KNEE: Medial compartment: Mild joint space narrowing, unchanged and indicative of mild osteoarthritis. Lateral compartment: Normal. Patellofemoral compartment: Normal. RIGHT KNEE AP UPRIGHT: Medial compartment: Joint space narrowing with marginal osteophytes, indicative of [id number] osteoarthritis. Lateral compartment: Unremarkable. Patellofemoral compartment: Cannot be evaluated on the AP projection. Surrounding bone and soft tissues are unremarkable. XR/XR knee LT 3V IMPRESSION: Left knee: Mild osteoarthritis unchanged. Right knee limited: [id number] osteoarthritis of the medial compartment.
== END 2023-10-14 09:31 | disposition home or self-care (01) ==
LOC: HO.HOSX 09:30
PROVIDERS: PCP Family Medicine; Visit Provider Physician Assistant
DX: M17.12 Unilateral primary osteoarthritis, left knee (principal)
CPT/HCPCS: 20610; 73562; J1010

== ENCOUNTER 2023-11-10 09:52 | Outpatient (REF) | payer OTHER, SELFPAY ==
[2023-11-10 11:33] LABS: MANUAL DIFF FLAG NO
[2023-11-10 11:41] LABS: Basophils Percent Auto 0.4 % (0-2); Eosinophils Absolute Auto 0.3 X10*3/uL (0.0-0.4); Eosinophils Percent Auto 3.2 % (0-4); Hematocrit 35.1 % (37.0-47.0); Hemoglobin 11.6 g/dl (12.0-16.0); Imm Gran Abs Auto 0.05 X10*3/uL (0.00-0.03); Imm Gran Pct Auto 0.6 % (0.0-0.4); Lymphocytes Absolute Auto 2.4 X10*3/uL (1.2-4.9); Lymphocytes Percent Auto 29.1 % (20-40); Mean Corpuscular Volume 87.8 fL (80.0-98.0); Mean Platelet Volume 9.3 fL (9.4-12.3); Monocytes Absolute Auto 0.5 X10*3/uL (0.1-1.2); Monocytes Percent Auto 5.5 % (2-11); Neutrophils Absolute Auto 5.1 x10*3/uL (2.0-8.3); Neutrophils Percent Auto 61.2 % (45-73); Platelet Count 233 X10*3/uL (160-400); White Blood Count 8.3 X10*3/uL (4.8-10.8)
[2023-11-10 12:23] LABS: Appearance Urine Clear; Color Urine Yellow; Glucose Urine UA Negative (Negative); Leukocyte Esterase Urine Large (3+) (Negative); Nitrite Urine Negative (Negative); PH 5.5 (5.0-9.0); Specific Gravity - Urine 1.025 (1.005-1.025); UMIC TRIGGER UA YES; Urine Blood Negative (Negative); Urine Ketones Negative (Negative); Urine Protein Trace mg/dL (Neg-Trace)
[2023-11-10 12:28] LABS: Alanine Aminotransferase 18 U/L (0-31); Alkaline Phosphatase 91 U/L (39-117); Anion Gap 13 (12-20); Aspartate Amino Transferase 17 U/L (5-31); Bilirubin Total 0.5 mg/dL (0.0-1.0); Blood Urea Nitrogen 14 mg/dL (9-16); Calcium 9.3 mg/dL (8.4-10.2); Carbon Dioxide 26 mmol/L (22-29); Chloride 105 mmol/L (96-108); Cholesterol 202 mg/dL (<200); Estimated Glomerular Filt Rate > 60; Glucose Fasting 128 mg/dL (60-99); HDL Cholesterol 47 mg/dL (>40); LDL Cholesterol Calculated 95 mg/dL (<100); Potassium 3.6 mmol/L (3.3-5.1); Sodium 140 mmol/L (135-145); Total Protein 7.5 g/dL (6.5-8.0); Triglycerides 301 mg/dL (<150)
[2023-11-10 12:29] LABS: Bacteria Urine None Seen (None Seen); Hyaline Casts Urine 0-2 /LPF (0-2); RBC Urine 0-2 /HPF (0-2); WBC Urine >50 /HPF (0-5)
[2023-11-10 12:30] LABS: Creatinine Urine 138.74 mg/dL
[2023-11-10 12:44] LABS: Thyroid Stimulating Hormone 1.15 uIU/mL (0.32-4.0)
[2023-11-11 19:29] LABS: Triiodothyronine T3 Total 92 ng/dL (76-181)
== END 2023-11-10 09:53 | disposition home or self-care (01) ==
LOC: HO.WFDLDS 09:52
PROVIDERS: Visit Provider Family Medicine
DX: Z00.00 Encounter for general adult medical examination without abnormal findings (principal); I10 Essential (primary) hypertension; E03.9 Hypothyroidism, unspecified
CPT/HCPCS: 36415; 80053; 80061; 81001; 81003; 82043; 82570; 84439; 84443; 84480; 85025

== ENCOUNTER 2023-11-14 18:47 | Outpatient (REF) | payer OTHER, SELFPAY ==
--- NOTE | ~2023-11-14 | MR_ITS ---
EXAMINATION: MR KNEE WITHOUT CONTRAST, LEFT CLINICAL INFORMATION: Left knee pain. Osteoarthritis. COMPARISON: Left knee radiographs dated 10/14/2023. TECHNIQUE: MRI of the knee without contrast was performed using routine sequences on a high-field scanner. FINDINGS: MENISCI: Medial Meniscus: Complete radial tear of the meniscal body measuring 0.8 cm in AP dimension with degenerative intrasubstance signal in the posterior body and posterior horn. Adjacent soft tissue edema. Lateral Meniscus: Intact. LIGAMENTS: Cruciate: Intact. Collateral: Edema adjacent to the medial collateral ligament which may be related to the meniscal tear or indicate a grade 1 sprain. Intact fibular collateral ligament. EXTENSOR MECHANISM: Intact quadriceps and patellar tendons. Normal patellofemoral alignment. ARTICULAR CARTILAGE/BONE: Patellofemoral Compartment: Medial trochlear articular cartilage signal heterogeneity with tiny marginal osteophytes. Medial Compartment: At the posteromedial weightbearing aspect of the medial femoral condyle there is focal cortical flattening with underlying marrow edema measuring 0.6 x 0.7 cm which could represent a nondisplaced subchondral fracture. Diffuse weightbearing articular cartilage thinning with areas of full-thickness loss and subchondral cystic change. Marginal osteophytes. Lateral Compartment: Minimal articular cartilage signal heterogeneity with tiny marginal osteophytes. JOINT FLUID AND BURSAE: Small joint effusion and small Green's cyst. MR/MR knee LT wo con IMPRESSION: 1. Complete radial tear of the medial meniscal body with degenerative intrasubstance signal in the posterior body and posterior horn. Adjacent soft tissue edema. 2. Edema adjacent to the medial collateral ligament which may be related to the meniscal tear or indicate a grade 1 sprain. 3. Moderate medial as well as mild patellofemoral and lateral compartment osteoarthritis. Small joint effusion and small Green's cyst. 4. Possible nondisplaced subchondral fracture at the posteromedial weightbearing aspect of the medial femoral condyle with underlying marrow edema.
== END 2023-11-14 18:48 | disposition home or self-care (01) ==
LOC: HO.MRI 18:47
PROVIDERS: PCP Family Medicine; Visit Provider Physician Assistant
DX: M17.12 Unilateral primary osteoarthritis, left knee (principal)
CPT/HCPCS: 73721

== ENCOUNTER 2023-11-16 08:53 | Outpatient (AMB) | payer OTHER, SELFPAY ==
[2023-11-16 08:54] VITALS: BP 124/76; PULSE 81; RESP 15; TEMP 36.1; O2SAT 98; BMI 39.5
--- NOTE | 2023-11-16 08:54 | A.OFFPC_ITS ---
Vital Signs 11/16/23 08:54 Height 5 ft 1 in Weight 209 lb 2 oz BMI 39.5 BP 124/76 Blood Pressure Location Rt brachial Position Sitting Respiration 15 Pulse 81 Pulse Source Pulse Oximeter Temp 97 F Temp Source Temporal Artery Scan Pulse Oximetry (%) 98 Oxygen Delivery Method Room Air Intake Visit Reasons: Hypertension Prisoner Classification Interviewer Required: No Accompanied by: Self / Same As Patient Allergies erythromycin base Allergy (Unknown, Verified 11/16/23 09:01) unknown meperidine [From Demerol] Allergy (Unknown, Verified 11/16/23 09:01) Unknown morphine Allergy (Unknown, Verified 11/16/23 09:01) unknown Sulfa (Sulfonamide Antibiotics) Allergy (Unknown, Verified 11/16/23 09:01) unknown Medication List - Last Reconciled 11/16/23 by Vince Benavidez MD atorvastatin 40 mg PO DAILY 90 days blood sugar diagnostic (FreeStyle Lite Strips) DX: E11.9, test blood sugar once a day, 90 days blood-glucose meter (FreeStyle Lite Meter kit) DX: E11.9, test blood sugar once a day. 999days clonidine HCl 0.05 mg (1/2 x 0.1 mg) PO BID 90 days lancets (FreeStyle Lancets) To test blood sugar once a day As directed, 90 days levothyroxine 125 mcg PO DAILY losartan 50 mg PO BID 90 days metformin 500 mg PO DAILY 90 days metoprolol succinate ER 25 mg PO DAILY 90 days metoprolol succinate ER 50 mg PO DAILY 90 days omeprazole 20 mg PO DAILY 90 days semaglutide (Ozempic) 0.25 mg (0.368 mL) subcut QWEEK 28 days valacyclovir 500 mg PO DAILY venlafaxine 75 mg PO DAILY 90 days Tobacco use date assessed: 08/22/23 Fall risk assessment: No Falls in past year Last assessed Fall Risk: 11/16/23 Dental Screening Dental Screen Date: 08/22/23 HPI Hypertension HPI Details 73 y/o female presents to f/u hypertensi on, diabetes. Blood pressure today 124/76. She is on losartan 50mg b.i.d, metoprolol. A1c today 11/16/23 7.2%. She is on metformin 500mg daily. She notes she had stopped ozempic as she not been able to tolerate it. Last diabetic eye exam last year per pt. HPI Comments History of Present Illness Details Documentation assistance for Vince Benavidez MD, was provided by Mehul Bright,? Filler Blender on 11/16/2023 at 9:27 AM NATALEE. I, Dr. Benavidez, have read, observed, and verified documentation. 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 1. Little interest or pleasure in doing things: not at all 2. Feeling down, depressed, or hopeless: not at all 3. Trouble falling or staying asleep, or sleeping too much: not at all 4. Feeling tired or having little energy: not at all 5. Poor appetite or overeating: not at all 6. Feeling bad about yourself - or that you are a failure or have let yourself or your family down: not at all 7. Trouble concentrating on things, such as reading the newspaper or watching television: not at all 8. Moving or speaking so slowly that other people could have noticed. Or the opposite - being so fidgety or restless that you have been moving around a lot more than usual: not at all 9. Thoughts that you would be better off or of hurting yourself in some way: not at all Total score: 0 Depression Screening Interpretation: Positive (Takes?venlafaxine.??Does?not?want?any?changes.??Stable) Depression Screening Done: Yes 37524 - PHQ-9 Billing: Yes Source: Developed by Drs. Sudeep Reyes, Lacie Dodd, Santana Hodges and colleagues, with an educational faustino from [employer]. Thrive Questionnaire Date Thrive assessed: 08/22/23 I am a: Patient What is your living situation today?: I have a steady place to live Within the past 12 months, did the food you bought not last and you didn't have the money to get more?: Never true Within the past 12 months, did you worry whether your food would run out before you got money to buy more?: Never true Do you have trouble paying for medicines?: No Do you have trouble getting transportation to medical appointments?: No Do you have trouble paying your heating and electricity bill?: No Do you have trouble taking care of your child, family member or friend?: No Do you have trouble with day-to-day activities such as bathing, preparing meals, shopping, managing finances, etc.?: No Are you currently unemployed and looking for a job?: No Are you interested in more education?: No Please select the resources that you would like help with: None Currently or been in a relationship where the following occur: No concerns reported THRIVE Score: 0 AUDIT C Alcohol Use Questionnaire (AUDIT-C) 1. How often do you have a drink containing alcohol?: Never 3. How often do you have six or more drinks on one occasion?: Never Total Score: 0 GORAN-7 AMB Questionnaire GORAN-7 Date GORAN - 7 assessed: 08/22/23 Feeling nervous, anxious, or on edge: 0 = Not at all Not being able to stop or control worryin = Not at all Worrying too much about different things: 0 = Not at all Trouble relaxin = Not at all Being so restless that it is hard to sit still: 0 = Not at all Becoming easily annoyed or irritable: 0 = Not at all Feeling afraid as if something awful might happen: 0 = Not at all Total GORAN-7 score (0-4 normal; 5-9 mild; 10-14 moderate; 15-21 severe): 0 Source: Developed by Drs. Sudeep Reyes, Lacie Dodd, Santana Hodges and colleagues, with an educational faustino from [employer]. GORAN-7 Assessment Billing GORAN-7 Assessment Tool: GORAN-7 Assessment 81131 Review of Systems Const Denies chills, Denies fatigue, Denies fever(s), Denies headache(s) and Denies weakness ENT Denies dizziness and Denies headache(s) Card Denies dyspnea Resp Denies cough, Denies dyspnea, Denies wheezing and Denies other (shortness of breath) Musc Denies numbness and Denies tingling Neuro Denies dizziness, Denies headache(s), Denies numbness, Denies tingling and Denies weakness Psych Denies anxiety and Denies depression Endo Denies fatigue Aller/Immun Denies wheezing Physical exam (Primary Care) Vital Signs: Last Vital Signs Temp 97 F 11/16/23 08:54 Pulse 81 11/16/23 08:54 Resp 15 11/16/23 08:54 BP 124/76 11/16/23 08:54 Pulse Ox 98 11/16/23 08:54 Oxygen Delivery Method Room Air 11/16/23 08:54 BMI result Body Mass Index 39.5 Tobacco/Smoking Status: Tobacco use Status Tobacco use date assessed 08/22/23 11/16/23 09:02 Patient Tobacco Use Status Never used Tobacco 11/16/23 09:02 e-Cigarette/Vaping Use Never Used 11/16/23 09:02 PHQ-9: PHQ-9 Score PHQ-9: Total score 0 11/16/23 09:12 Depression Screening Interpretation: Positive (Takes?venlafaxine.??Does?not?want?any?changes.??Stable) Thrive Assessment: Date of Thrive Assessment Date Thrive assessed 08/22/23 11/16/23 09:02 Currently or been in a relationship where the following occur: No concerns re ported Const General: well developed; No acute distress Nutritional Appearance: well nourished Orientation/consciousness: patient oriented x3 [facility]: Yes normocephalic and Yes atraumatic Eyes General: appearance normal, both eyes and all related structures Pupils: Equal, round and reactive pupils present EOM: EOMs intact bilaterally Resp Effort & Inspection: normal respiratory effort Neuro General: patient oriented x3 and gait normal Cranial nerves: Yes Equal, round and reactive pupils present Psych Affect: normal affect Results AMB Hemoglobin A1c AMB Hemoglobin A1c 7.2 % Last Edit by Delicia Mendiola CMA on 11/16/23 09:20 Assessment and Plan Assessment & Plan (1) Diabetes mellitus: Code(s): E11.9 - Type 2 diabetes mellitus without complications Plan: Blood?pressure?improved?slightly?but?still?above?goal?of?less?than?7.0% She?has?not?been?able?to?tolerate?Ozempic?and?so?stopped?this. Had?had?difficulty?obtaining?Trulicit y?previously?but?short?digits?seem?to?have?resolved?so?will?try?sending?this?aga in?as?she?was?able?to?tolerate?it Continue?metformin?as?prescribed Encouraged?diabetic?diet?and?exercise?as?tolerated Patient?is?followed?by?Ophthalmology?in?says?she?had?a?recent?visit.??I?do?not?h ave?the?report?so?I?will?request?this. (2) Essential hypertension: Code(s): I10 - Essential (primary) hypertension Plan: Blood?pressure?is?well?controlled.??Goal?is?less?than?140/90 Continue?current?medication?regimen (3) Left knee pain: Code(s): M25.562 - Pain in left knee Plan: Recent?MRI?and?has?follow- up?with?ortho?to?determine?if?she?is?a?candidate?for?gel?injections?verses?knee? replacement. Follow-up?with?ortho?as?recommended Orders: Orders AMB Hemoglobin A1c Today Z13.9 - Encounter for screening, unspecified Medications: Refilled dulaglutide (Trulicity) 0.75 mg (0.5 mL) subcut QWEEK 28 days 2 mL 4RF Coding Level of Care Code Est Pt Level 4 (27568) Diagnoses Diabetes mellitus E11.9 Essential hypertension I10 Left knee pain M25.562 Additional Codes GORAN-7 Assessment Billing - GORAN-7 Assessment Tool: GORAN-7 Assessment 29522 ([id number])
== END 2023-11-16 09:40 | disposition home or self-care (01) ==
PROVIDERS: PCP Family Medicine; Visit Provider Family Medicine
DX: E11.9 Type 2 diabetes mellitus without complications (principal); I10 Essential (primary) hypertension; M25.562 Pain in left knee
CPT/HCPCS: 83036; 99214

== ENCOUNTER 2023-11-23 09:14 | Outpatient (AMB) | payer OTHER, SELFPAY ==
--- NOTE | 2023-11-23 09:26 | MHC.OFFVIS ---
Intake Visit Reasons: ov- Left knee MRI review Intake Note: Inga a 73 year old female who presents today for an MRI review of left knee. Patient reports improvement in her knee pain after the last cortisone injection however she continues to an achy pain. Allergies erythromycin base Allergy (Unknown, Verified 11/23/23 09:33) unknown meperidine [From Demerol] Allergy (Unknown, Verified 11/23/23 09:33) Unknown morphine Allergy (Unknown, Verified 11/23/23 09:33) unknown Sulfa (Sulfonamide Antibiotics) Allergy (Unknown, Verified 11/23/23 09:33) unknown Medication List - Last Reconciled 11/23/23 by Ariela Wood PA-C atorvastatin 40 mg PO DAILY 90 days blood sugar diagnostic (FreeStyle Lite Strips) DX: E11.9, test blood sugar once a day, 90 days blood-glucose meter (FreeStyle Lite Meter kit) DX: E11.9, test blood sugar once a day. 999days clonidine HCl 0.05 mg (1/2 x 0.1 mg) PO BID 90 days dulaglutide (Trulicity) 0.75 mg (0.5 mL) subcut QWEEK 28 days lancets (FreeStyle Lancets) To test blood sugar once a day As directed, 90 days levothyroxine 125 mcg PO DAILY losartan 50 mg PO BID 90 days metformin 500 mg PO DAILY 90 days metoprolol succinate ER 25 mg PO DAILY 90 days metoprolol succinate ER 50 mg PO DAILY 90 days omeprazole 20 mg PO DAILY 90 days semaglutide (Ozempic) 0.25 mg (0.368 mL) subcut QWEEK 28 days valacyclovir 500 mg PO DAILY venlafaxine 75 mg PO DAILY 90 days HPI HPI ov- Left knee MRI review: Details: Inga is a 73-year-old female who presents today for an MRI review of left knee. She reports improvement in her knee pain after the last cortisone injection, however, she continues to experience mild knee pain. She denies any new concerns today. 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 Current occupational exposures/hazards: No Cognitive needs: No Hearing needs: No Vision needs: Yes Review of Systems Const All systems reviewed & are unremarkable except as noted in HPI and below Physical Exam Const General: cooperative, healthy appearing, comfortable and no acute distress Orientation/consciousness: patient oriented x3 HEENT Head: Yes normal to inspection, Yes normocephalic and Yes atraumatic Eyes General: appearance normal, both eyes and all related structures Neck Neck: Yes normal visual inspection and Yes no JVD Chest Chest palpation & inspection: normal inspection of the chest Resp Effort & Inspection: normal respiratory effort Auscultation: clear to auscultation bilaterally, crackles (no), rales (no), rhonchi (no) and wheezes (no) Cardio Jugular venous distension: no JVD Rate: regular rate Rhythm: regular rhythm Heart sounds: S1 normal heart sound present, S2 normal heart sound present, Murmur heart sound present (no) and Rub heart sound present (no) Peripheral pulses: Peripheral pulses 2+ throughout GI Palpation (GI): Soft to palpation Skin Lesions: no lesions Rashes: no rashes Neuro General: patient oriented x3 Extrem Other: Left knee skin intact, no erythema or joint effusion. Tenderness along the medial joint line. Full ROM with crepitus. Negative Bright?s. No ligamentous laxity. NVI. General: Yes normal to inspection, Yes no pedal edema and Yes no calf tenderness Results Reviewed Results Reviewed: MR knee LT wo con IMPRESSION: 1. Complete radial tear of the medial meniscal body with degenerative intrasubstance signal in the posterior body and posterior horn. Adjacent soft tissue edema. 2. Edema adjacent to the medial collateral ligament which may be related to the meniscal tear or indicate a grade 1 sprain. 3. Moderate medial as well as mild patellofemoral and lateral compartment osteoarthritis. Small joint effusion and small Green's cyst. 4. Possible nondisplaced subchondral fracture at the posteromedial weightbearing aspect of the medial femoral condyle with underlying marrow edema. Assessment & Plan Assessment & Plan (1) Osteoarthritis of left knee: Code(s): M17.12 - Unilateral primary osteoarthritis, left knee Category: Medical Qualifiers: Osteoarthritis type: primary Qualified Code(s): M17.12 - Unilateral primary osteoarthritis, left knee Plan She is having great relief with her previous injection, and we will hold off on the gel at this time. If symptoms arise, can contact me and we can proceed with the injection and we also discussed that going forward, if she gets to the point where she has severe pain, significant limitations and daily activities, she may benefit from a consultation with Dr. Paiz to discuss potential total joint arthroplasty. Patient Instructions: Scribed for Ariela Wood PA-C, by Kierra Torres biomedical engineering professor, on 11/23/2023 at 9:15 AM NATALEE. Ariela Up PA-C, have personally reviewed and agree with the information entered by the scribe. Coding Level of Care Code Est Pt Level 3 (95866) Diagnoses Primary osteoarthritis of left knee M17.12 Osteoarthritis type: primary
== END 2023-11-23 10:47 | disposition home or self-care (01) ==
PROVIDERS: PCP Family Medicine; Visit Provider Physician Assistant
DX: M17.12 Unilateral primary osteoarthritis, left knee (principal)
CPT/HCPCS: 99213

== ENCOUNTER → 2023-11-23 09:14 | Outpatient (BNVA) | payer OTHER, SELFPAY | PROVIDERS: PCP Family Medicine; Visit Provider Physician Assistant ==

== ENCOUNTER 2024-02-20 08:48 | Outpatient (AMB) | payer OTHER, SELFPAY ==
--- NOTE | 2024-02-20 08:57 | MHC.PC.OV ---
Vital Signs 02/20/24 08:59 Height 5 ft 1 in Weight 211 lb 4 oz BMI 39.9 BP 179/79 H Blood Pressure Location Rt brachial Position Sitting Respiration 14 Pulse 61 Pulse Source Pulse Oximeter Temp 97.5 F Temp Source Temporal Artery Scan Pulse Oximetry (%) 98 Oxygen Delivery Method Room Air Intake Visit Reasons: F/U DM Intake Note: f/u DM Allergies erythromycin base Allergy (Unknown, Verified 02/20/24 08:58) unknown meperidine [From Demerol] Allergy (Unknown, Verified 02/20/24 08:58) Unknown morphine Allergy (Unknown, Verified 02/20/24 08:58) unknown Sulfa (Sulfonamide Antibiotics) Allergy (Unknown, Verified 02/20/24 08:58) unknown Medication List - Last Reconciled 02/20/24 by Vince Benavidez MD atorvastatin 40 mg PO DAILY 90 days blood sugar diagnostic (FreeStyle Lite Strips) DX: E11.9, test blood sugar once a day, 90 days blood-glucose meter (FreeStyle Lite Meter kit) DX: E11.9, test blood sugar once a day. 999days clonidine HCl 0.05 mg (1/2 x 0.1 mg) PO BID 90 days dulaglutide (Trulicity) 0.75 mg (0.5 mL) subcut QWEEK 28 days lancets (FreeStyle Lancets) To test blood sugar once a day As directed, 90 days levothyroxine 125 mcg PO DAILY losartan 50 mg PO BID 90 days metformin 500 mg PO DAILY 90 days metoprolol succinate ER 25 mg PO DAILY 90 days metoprolol succinate ER 50 mg PO DAILY 90 days omeprazole 20 mg PO DAILY 90 days valacyclovir 500 mg PO DAILY venlafaxine 75 mg PO DAILY 90 days Tobacco use date assessed: 08/22/23 Dental Screening Dental Screen Date: 08/22/23 HPI F/U DM HPI Details 73 y/o female presents to f/u diabetes, hypertension. A1c today 02/20/24 6.8%. Previous A1c 11/16/23 7.2%. Had switched her back to Trulicity. She is on Trulicity 0.75mg, metformin 500mg. She is no longer on ozempic. Blood pressure today 179/79, 61p. She is on metoprolol, losartan 50mg b.i.d. Also on clonidine. Pt notes blood pressure has been fine recently. HPI Comments History of Present Illness Details Documentation assistance for Vince Benavidez MD, was provided by Mehul Bright, Sonogram Technician on 02/20/2024 at 9:21 AM EST. I, Dr. Benavidez, have read, observed, and verified documentation. 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 1. Little interest or pleasure in doing things: not at all 2. Feeling down, depressed, or hopeless: not at all 3. Trouble falling or staying asleep, or sleeping too much: not at all 4. Feeling tired or having little energy: not at all 5. Poor appetite or overeating: not at all 6. Feeling bad about yourself - or that you are a failure or have let yourself or your family down: not at all 7. Trouble concentrating on things, such as reading the newspaper or watching television: not at all 8. Moving or speaking so slowly that other people could have noticed. Or the opposite - being so fidgety or restless that you have been moving around a lot more than usual: not at all 9. Thoughts that you would be better off or of hurting yourself in some way: not at all Total score: 0 Source: Developed by Drs. Sudeep Reyes, Lacie Dodd, Santana Hodges and colleagues, with an educational faustino from [employer]. Thrive Questionnaire Date Thrive assessed: 08/22/23 I am a: Patient What is your living situation today?: I have a steady place to live Within the past 12 months, did the food you bought not last and you didn't have the money to get more?: Never true Within the past 12 months, did you worry whether your food would run out before you got money to buy more?: Never true Do you have trouble paying for medicines?: No Do you have trouble getting transportation to medical appointments?: No Do you have trouble paying your heating and electricity bill?: No Do you have trouble taking care of your child, family member or friend?: No Do you have trouble with day-to-day activities such as bathing, preparing meals, shopping, managing finances, etc.?: No Are you currently unemployed and looking for a job?: No Are you interested in more education?: No Please select the resources that you would like help with: None Currently or been in a relationship where the following occur: No concerns reported THRIVE Score: 0 AUDIT C Alcohol Use Questionnaire (AUDIT-C) 1. How often do you have a drink containing alcohol?: Never Total Score: 0 GORAN-7 AMB Questionnaire GORAN-7 Date GORAN - 7 assessed: 08/22/23 Feeling nervous, anxious, or on edge: 0 = Not at all Not being able to stop or control worryin = Not at all Worrying too much about different things: 0 = Not at all Trouble relaxin = Not at all Being so restless that it is hard to sit still: 0 = Not at all Becoming easily annoyed or irritable: 0 = Not at all Feeling afraid as if something awful might happen: 0 = Not at all Total GORAN-7 score (0-4 normal; 5-9 mild; 10-14 moderate; 15-21 severe): 0 Source: Developed by Drs. Sudeep Reyes, Lacie Dodd, Santana Hodges and colleagues, with an educational faustino from [employer]. Review of Systems Const Denies chills, Denies fatigue, Denies fever(s), Denies headache(s) and Denies weakness ENT Denies dizziness and Denies headache(s) Card Denies dyspnea Resp Denies cough, Denies dyspnea, Denies wheezing and Denies other (shortness of breath) Musc Denies numbness and Denies tingling Neuro Denies dizziness, Denies headache(s), Denies numbness, Denies tingling and Denies weakness Psych Denies anxiety and Denies depression Endo Denies fatigue Aller/Immun Denies wheezing Physical exam (Primary Care) Vital Signs: Last Vital Signs Temp 97.5 F 02/20/24 08:59 Pulse 61 02/20/24 08:59 Resp 14 02/20/24 08:59 BP 179/79 H 02/20/24 08:59 Pulse Ox 98 02/20/24 08:59 Oxygen Delivery Method Room Air 02/20/24 08:59 BMI result Body Mass Index 39.9 Tobacco/Smoking Status: Tobacco use Status Tobacco use date assessed 08/22/23 02/20/24 09:01 Patient Tobacco Use Status Never used Tobacco 02/20/24 09:01 e-Cigarette/Vaping Use Never Used 02/20/24 09:01 PHQ-9: PHQ-9 Score PHQ-9: Total score 0 02/20/24 09:01 Thrive Assessment: Date of Thrive Assessment Date Thrive assessed 08/22/23 02/20/24 09:01 Currently or been in a relationship where the following occur: No concerns reported Const General: well developed; No acute distress Nutritional Appearance: well nourished Orientation/consciousness: patient oriented x3 HENMT Head: Yes normocephalic and Yes atraumatic Eyes General: appearance normal, both eyes and all related structures Pupils: Equal, round and reactive pupils present EOM: EOMs intact bilaterally Resp Effort & Inspection: normal respiratory effort Neuro General: patient oriented x3 and gait normal Cranial nerves: Yes Equal, round and reactive pupils present Psych Affect: normal affect Results AMB Hemoglobin A1c AMB Hemoglobin A1c 6.8 % Last Edit by RAHUL Watkins on 02/20/24 09:08 Results Reviewed Results Reviewed: Laboratory Last Values Hgb A1c (Clinic) 6.8 % (4.0-6.0) H 02/20/24 09:07 Coding Level of Care Code Est Pt Level 4 (33137) Diagnoses Diabetes mellitus E11.9 Essential hypertension I10 Assessment & Plan Assessment & Plan (1) Diabetes mellitus: Code(s): E11.9 - Type 2 diabetes mellitus without complications Category: Medical Plan: A1c?6.8%?is?improved?and?now?at?goal?of?less?than?7.0% Continue?current?medications (2) Essential hypertension: Code(s): I10 - Essential (primary) hypertension Category: Medical Plan: Blood?pressure?is?too?high?today. Patient?feels?well. She?has?taken?her?medication?as?prescribed. Will?have?her?take?an?extra?half?tablet?of?clonidine?right?now.??She?will?call?us?with?her?blood?pressure?at?home. If?still?elevated,?will?have?her?increase?losartan. Orders: Orders AMB Hemoglobin A1c Today E11.9 - Type 2 diabetes mellitus without complications Medications: Discontinued semaglutide (Ozempic) for 4 weeks Discontinued Reason: Doctor's Order 0.25 mg (0.368 mL) subcut QWEEK 28 days 1.472 mL 2RF
[2024-02-20 08:59] VITALS: BP 179/79; PULSE 61; RESP 14; TEMP 36.4; O2SAT 98; BMI 39.9
== END 2024-02-20 09:39 | disposition home or self-care (01) ==
PROVIDERS: PCP Family Medicine; Visit Provider Family Medicine
DX: E11.9 Type 2 diabetes mellitus without complications (principal); I10 Essential (primary) hypertension

== ENCOUNTER → 2024-02-20 08:48 | Outpatient (BNVA) | payer OTHER, SELFPAY | PROVIDERS: PCP Family Medicine; Visit Provider Family Medicine | DX: E11.9 Type 2 diabetes mellitus without complications (principal); I10 Essential (primary) hypertension | CPT/HCPCS: 83036; 96127 ==

== ENCOUNTER → 2024-02-23 14:08 | Outpatient (BNVA) | payer OTHER, SELFPAY | PROVIDERS: PCP Family Medicine ==

== ENCOUNTER 2024-06-18 11:33 | Outpatient (AMB) | payer OTHER, SELFPAY ==
--- OUTSIDE RECORDS SUMMARY | 2024-06-18 11:39 | XMS_ITS ---
[facility] Address [address] [place] [address] Care Team Providers Care Big Data Developer Name Role Phone Vince Benavidez MD Primary Care Provider Jahaira Gross Unavailable [phone] Allergies Allergen (clinical drug ingredient) Drug/Non Drug Allergy documented on EMR Reaction Allergy Type Onset Date Status Biaxin vomiting Drug Allergy Active meperidine Demerol vomiting Drug Allergy Active erythromycin Erythromycin vomiting Drug Allergy A ctive spironolactone Spironolactone vomiting Drug Allergy Active azithromycin Zithromax Z-Talon vomiting Drug Allergy Active Morphine and Related vomiting Drug Allergy Active Substance with sulfonamide structure and antibacterial mechanism of action (substance) Sulfa Antibiotics rash Drug Allergy Active REASON FOR VISIT Heel pain Medications Medication SIG (Take, Route, Frequency, Duration) Notes Start Date End Date Status Levothyroxine Sodium 125 MCG 1 tablet in the morning on an empty stomach Orally Once a day Active Trulicity 0.75 MG/0.5ML as directed Subcutaneous Active Losartan Potassium 100 MG 1 tablet Orall y Once a day Active cloNIDine HCl 0.1 MG 1 tablet Orally Onc e a day Active Atorvastatin Calcium 40 MG 1 tablet Oral ly Once a day Active Metoprolol Succinate 100 MG 1 capsule Or ally Once a day Active Metoprolol Succinate 25 MG 1 capsule Ora lly Once a day Active valACYclovir HCl 500 MG 1 tablet Orally Once a day Active Omeprazole 20 MG 1 capsule 1/2 to 1 h our before morning meal Orally Once a day Active metFORMIN HCl 500 MG 1 tablet with a luisito l Orally Once a day Active Venlafaxine HCl 75 MG 1 tablet with food Orally Once a day Active Social History Tobacco Use: Social History Observation Description Date Details (start date - stop date) Never Smoker NA - NA Tobacco use other than smoking: Question Answer Notes Are you an other tobacco user? No Tobacco Control (Standard) Question Answer Notes Tobacco use: Nonsmoker Additional Findings: Tobacco non-user Current no nsmoker Vital Signs Height 5ft1in in 05/23/2024 Weight 207 lbs 05/23/2024 BMI 39.11 kg/m2 05/23/2024 Blood pressure systolic 147 mm Hg 05/23/19 25 Blood pressure diastolic 70 mm Hg 025 Encounters Encounter Location Date Provider Diagnosis [facility] [address] [place] [address] 05/23/2024 Jahaira Dye Plantar fasciitis of right foot M72.2 Assessments Encounter Date Diagnosis (ICD Code) Assessment Notes Treatment Notes Treatment Clinical Notes Section Notes 05/23/2024 Plantar fasciitis of right foot (ICD-10 - M72.2) 05/23/2024 Other Plan Of Treatment Next Appt Details Follow Up: prn, Reason: Progress Notes * Inga FLORESDOB: [birth year] (73 yo F)Acc No.[id number]:05/23/2024 Progress Notes Patient:?Inga FLORES Provider:?Jahaira Dye DPM :1950???Age:73 Y???Sex:Female D ate:05/23/2024 Address:[address] [place], [place] [id number] Pcp:Vince Benavidez MD Subjective: * Chief Complaints: * ???Heel pain * HPI: ???Heel pain:?Location:?Proximal plantar aspect of Heel, RIGHT.?Duration:?Since Mar 19.?Course:?resolved.?Aggravated:?standing, walking, walking first thing in the morning/after rest.?Treatments:?rest/alter normal daily activity, ice, heat, topical anti-inflammatory cream, stretching, corticosteriod injection.? * ROS:?General/Constitutional:?Nausea?denies.?Vomiting?denies.?Hunger Thirst?denies.?Loss appetite?denies.?Chills?denies.?Fatigue?denies.?Fever?denies.?Night Sweats?denies.?Unexplained weight loss?denies.?Unexplained weight gain?denies.?HEENTM:?Dentures?denies.?Dizziness?denies.?Glasses/contacts?admits.?Retinopathy?de nies.?Blurred/double vision?denies.?TMJ?denies.?Discharge/drainage?denies.?Implants?denies.?Sore throat?denies.?Dental implants?denies.?Hard of hearing ?denies.?Difficulty chewing/swallowing/speaking?denies.?Nose bleeds?denies.?Sore mouth?denies.?Respiratory:?On Oxygen?denies.?Pneumonia/pleurisy?denies.?Bronchitis?denies.?Emphysema?denies.?C oughing?denies.?Cough blood?denies.?Shortness of breath?denies.?Wheezing?denies.?Cardiovascular:?Pacemaker?denies.?MVP?denies.?WPW?denies.?CHF?denies.?Heart attack?denies.?Septal defect?denies.?Rapid beat?denies.?Chest pain ?denies.?Atrial Fib.?denies.?Murmur/Palpitations?denies.?Gastrointestinal:?Hemorrhoids?denies.?Stomach/Abdominal pain?denies.?Dark blood stool?denies.?Irritable bowel ?admits.?Constipation?denies.?Diarrhea?denies.?Hematology:?Swelling?denies.?Clots?denies.?Varicose Veins?denies.?Bruising?denies.?Bleeding problem?denies.?Genitourinary:?Blood urine?denies.?Frequent/Painfu/urination/bladder control?denies.?Kidney stones?denies.?Infection (UTI)?denies.?Nephropathy?denies.?sex trans dis (STD)?denies.?Prostate?denies.?Musculoskeletal:?Hammertoes?denies.?Bunions?denies.?Back Pain?admits.?Muscle Cramps/ Resting?denies.?Muscle cramps / walking?denies.?Generalized aches and pains?admits.?Weakness?denies.?Integ.:?Beard?denies.?Scars?denies.?Corns/calluses?denies.?Ingrown nails?denies.?Painful nails?denies.?Open Sores?denies.?Rashes?denies.?Neurologic:?Difficulty sleeping?denies.?Brain disorder?denies.?Numbness?denies.?Balance trouble?denies.?Confusion?denies.?Fainting/blackouts?denies.?Tingling?denies.?Tr emors?denies.? * Medical History:? * Surgical History:?hysterecto my 06/1989bladder suspension 03/1994Hernia Repair 12/2012tonsillectomy 1966appendectomy 1960 * Hospitalization/Major Diagno stic Procedure:?Denies Past Hospitalization * Family History:?Mother: dece ased, diagnosed with Unspecified essential hypertension, Unspecified heart disease, Family history of arthritis.?Father: , diagnosed with Diabetic - NIDDM, Unspecified cerebral artery occlusion with cerebral infarction.?Siblings: kidney/liver disease, diagnosed with Other malignant neoplasm of unspecified site.? * Social History:?Tobacco Use:?Tobacco use other than smoking?Are you an other tobacco user??No ?Tobacco Control (Standard)?Tobacco use:?Nonsmoker ?Additional Findings: Tobacco non-user?Current nonsmoker ???Miscellaneous:?Caffeine: yes, frequency: 2 cups tea and 1 soda per day. ?Children: yes, 2. ?Exercise: no. ?Marital status: . 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 * Medications:?TakingVenlafaxi ne HCl 75 MG Tablet 1 tablet with food Orally Once a day valACYclovir HCl 500 MG Tablet 1 tablet Orally Once a day Omeprazole 20 MG Capsule Delayed Release 1 capsule 1/2 to 1 hour before morning meal Orally Once a day Metoprolol Succinate 100 MG Capsule ER 24 Hour Sprinkle 1 capsule Orally Once a day Metoprolol Succinate 25 MG Capsule ER 24 Hour Sprinkle 1 capsule Orally Once a day metFORMIN HCl 500 MG Tablet 1 tablet with a meal Orally Once a day Losartan Potassium 100 MG Tablet 1 tablet Orally Once a day Levothyroxine Sodium 125 MCG Tablet 1 tablet in the morning on an empty stomach Orally Once a day Trulicity 0.75 MG/0.5ML Solution Auto-injector as directed Subcutaneous cloNIDine HCl 0.1 MG Tablet 1 tablet Orally Once a day Atorvastatin Calcium 40 MG Tablet 1 tablet Orally Once a day Medication List reviewed and reconciled with the patientTaking Venlafaxine HCl 75 MG Tablet 1 tablet with food Orally Once a day Taking valACYclovir HCl 500 MG Tablet 1 tablet Orally Once a day Taking Omeprazole 20 MG Capsule Delayed Release 1 capsule 1/2 to 1 hour before morning meal Orally Once a day Taking Metoprolol Succinate 100 MG Capsule ER 24 Hour Sprinkle 1 capsule Orally Once a day Taking Metoprolol Succinate 25 MG Capsule ER 24 Hour Sprinkle 1 capsule Orally Once a day Taking metFORMIN HCl 500 MG Tablet 1 tablet with a meal Orally Once a day Taking Losartan Potassium 100 MG Tablet 1 tablet Orally Once a day Taking Levothyroxine Sodium 125 MCG Tablet 1 tablet in the morning on an empty stomach Orally Once a day Taking Trulicity 0.75 MG/0.5ML Solution Auto-injector as directed Subcutaneous Taking cloNIDine HCl 0.1 MG Tablet 1 tablet Orally Once a day Taking Atorvastatin Calcium 40 MG Tablet 1 tablet Orally Once a day Medication List reviewed and reconciled with the patient * Allergies:?Erythromycin: vom itingBiaxin: vomitingZithromax Z-Talon: vomitingSulfa Antibiotics: rashMorphine and Related: vomitingDemerol: vomitingSpironolactone: vomitingyes[Allergies Verified] Objective: * Vitals:?Ht: 5ft1in, Wt:207, BMI:39.11, Shoe size: 8, BP:147/70mm Hg, BS: not taken, Ht-cm: 154.94 cm, Wt-k.89 kg. * ???Past Orders: ???Lab:HEMOGLOBIN A1C (GLYCO HEMOGLOBIN) (Order Date - 01/31/2024) (Collection Date & Time - 01/31/2024 03:03 PM) ? Value Reference Range ?HEMOGLOBIN A1C % (HH) 6.7 * Examination: ???Ophthalmology Referral: ?DIABETES EYE EXAM?General Examination: ?GENERAL APPEARANCE:?Reveals a pleasant, alert, well-nourished, well- developed, well hydrated individual, who demonstrates proper attention to hygiene/body habitus, and is in no acute distress, Pt serves as own?historian for office visit today.?ORIENTED:?person, place, and time.?Neurological: ?SENSORY:?Neurological exam reveals intact sensorium, pain sensation normal, vibration sensation intact, pinprick sensation is normal in the lower extremities, Pt denies, anesthesia, burning, paresthesia, tingling, B/L.?Vascular: ?DP PULSES (B):?3/4, B/L.?PT PULSES (B):?3/4, B/L.?CAPILLARY FILL TIME:?immediate, all digits, B/L.?TROPHIC CONDITION-TEXTURE/ELASTICITY/TURGOR/HAIR GROWTH (B):?normal, B/L.?TEMPERTURE GRADIENT (C):?warm to cool, proximal to distal, B/L.?PIGMENTATION:?normal, B/L.?EDEMA (C):?absent, B/L.?Dermatologic: ?SKIN FINDINGS:?Skin exam reveals normal texture, elasticity, and turgor. There are no masses. The interspaces are clear.?Orthopedic: ?MUSCLE STRENGTH:?5/5 all groups in a symmetrical fashion , B/L.?Heel Pain: ?INSPECTION:?NO Pain on Palpation to Plantar Fascia med. and central bands, intrinsic musc., infra-calcaneal bursa, and med calc tubercle , RIGHT foot, No pain: posterior/superior heel, achilles bursa/tendon, sinus tarsi, peroneals, or with lateral heel compression; no limited STJ ROM, calor, or ecchymosis.? Assessment: * Assessment: 1.?Plantar fasciitis of righ t foot - M72.2 (Primary)??? Plan: * Treatment: * Procedure Codes:? * Preventive Medicine:? ??Counseling:?Discussion:?-13: Office or other outpatient visit for the evaluation and management of an established patient, which required a medically appropriate history and/or examination and LOW level of DECISION MAKING for: 1 STABLE ACUTE UNCOMPLICATED PROBLEM, 2 OR MORE MINOR PROBLEMS, OR 1 STABLE CHRONIC PROBLEM, THAT POSE(S) A LOW RISK FOR MORBIDITY/MORTALITY. The visit on the day of the encounter encompassed interpreting the data and educating the patient as to the nature of their condition, treatment options available according to their individual PMH, meds, allergies, and overall health/living conditions, as well as any potential risks or complications that may occur from a failure to adhere to, and participate in, the recommended course of therapy. The discussion included a complete verbal, and/or written explanation of the examination results, any x-rays taken, the proposed diagnosis, and outline of the treatment plan. A schedule for future care needs was also explained. The patient verbalized an understanding of the instructions at this time and agreed to be an active participant in their treatment. If the patient should think of any questions or concerns after the visit, I have encouraged the patient to call the office.?Heel pain:?Discussed other tx options for the patients condition, Given recent successful results to treatment, the patient wishes to continue with the present plan for their condition.? * Follow Up:?prn * Images: * Sign off status: Completed true * Provider:Milton Dye DPM Date:? Generated for Jaguar tolbert/Shannon/Ptay on:?06/18/2024 11:38 AM EST History and Physical Notes * HPI (History of Present Illness) Category Sub-Category Detail Notes Category Not es Heel pain Duration: Since Mar 19 Location: Proximal plantar asp ect of Heel, RIGHT Aggravated: standing, walking, w alking first thing in the morning/after rest Course: resolved Treatments: rest/alter normal da valeria activity, ice, heat, topical anti- inflammatory cream, stretching, corticosteriod injection Examination Category Sub-Category Detail Notes Category Not es Neurological SENSORY: Neurological exa m reveals intact sensorium, pain sensation normal, vibration sensation intact, pinprick sensation is normal in the lower extremities, Pt denies, anesthesia, burning, paresthesia, tingling, B/L Dermatologic SKIN FINDINGS: Skin exam reveal s normal texture, elasticity, and turgor. There are no masses. The interspaces are clear Orthopedic MUSCLE STRENGTH: 5/5 all groups in a symmetrical fashion , B/L General Examination GENERAL APPEARANCE: Reveals a pleasant, alert, well-nourished, well-developed, well hydrated individual, who demonstrates proper attention to hygiene/body habitus, and is in no acute distress, Pt serves as own historian for office visit today ORIENTED: person, place, and t sheri Ophthalmology Referral DIABETES EYE EXAM Procedure Perform ed:: No Eye Exam not performed:: No reason speci fied Vascular DP PULSES (B): 3/4, B/L PT PULSES (B): 3/4, B/L CAPILLARY FILL TIME: immediate, all digi ts, B/L TEMPERTURE GRADIENT (C): warm to cool, p roximal to distal, B/L TROPHIC CONDITION-TEXTURE/ELASTICITY/TURGOR/HAIR GROWTH (B): normal, B/L EDEMA (C): absent, B/L PIGMENTATION: normal, B/L Heel Pain INSPECTION: NO Pain on Palpa tion to Plantar Fascia med. and central bands, intrinsic musc., infra-calcaneal bursa, and med calc tubercle , RIGHT foot, No pain: posterior/superior heel, achilles bursa/tendon, sinus tarsi, peroneals, or with lateral heel compression; no limited STJ ROM, calor, or ecchymosis
--- OUTSIDE RECORDS SUMMARY | 2024-06-18 11:39 | XMS_ITS ---
[facility] Organization [facility] Address [address] [place] [address] Care Team Providers Care Security Clerk Name Role Phone Vince Benavidez MD Primary Care Provider Jahaira Gross Unavailable [phone] Allergies Allergen (clinical drug ingredient) Drug/Non Drug [...] Duration) Notes Start Date End Date Status Losartan Potassium 100 MG 1 tablet Orall y Once a day Active metFORMIN HCl 500 MG 1 tablet with a luisito l Orally Once a day Active Metoprolol Succinate 25 MG 1 capsule Ora lly Once a day Active Metoprolol Succinate 100 MG 1 capsule Or ally Once a day Active Omeprazole 20 MG 1 capsule 1/2 to 1 h our before morning meal Orally Once a day Active Trulicity 0.75 MG/0.5ML as directed Subcutaneous Active valACYclovir HCl 500 MG 1 tablet Orally Once a day Active Venlafaxine HCl 75 MG 1 tablet with food Orally Once a day Active Atorvastatin Calcium 40 MG 1 tablet Oral ly Once a day Active cloNIDine HCl 0.1 MG 1 tablet Orally Onc e a day Active Levothyroxine Sodium 125 MCG 1 tablet in the morning on an empty stomach Orally Once a day Active Social History Tobacco Use: Social History Observation Description Date Details (start date - stop date) Never Smoker NA - NA Tobacco use other than smoking: Question Answer Notes Are you an other tobacco user? No Tobacco Control (Standard) Question Answer Notes Tobacco use: Nonsmoker Additional Findings: Tobacco non-user Current no nsmoker AUDIT-C (Standard) Question Answer Notes Did you have a drink containing alcohol in the p ast year? No Points 0 Interpretation Negative Problems Problem Type SNOMED Code ICD Code Onset Dates Problem Status W/U Status Risk Notes Problem Plantar fasciitis of right foot (42452964475147 101) Plantar fasciitis of right foot (M72.2) Active confirmed Problem Interstitial myositis (89869260) Interstitial myositis of right foot (M60.171) Active confirmed Problem Plantar fasciitis (819877638) Plantar fasciitis (M72.2) Active confirmed Resistant to previous conservative treatment Vital Signs Height 5 ft 1 in in 04/17/2024 Weight 207 lbs 04/17/2024 BMI 39.11 kg/m2 04/17/2024 Blood pressure systolic 147 mm Hg 04/17/20 24 Blood pressure diastolic 70 mm Hg 024 Encounters Encounter Location Date Provider Diagnosis [facility] [address] [place] [address] 04/17/2024 Jahaira Perica Pain in right foot M79.671 ; Plantar fasciitis of right foot M72.2 ; Calcaneal spur, right foot M77.31 ; Interstitial myositis of right foot M60.171 and Bursitis of right foot M77.51 Assessments Encounter Date Diagnosis (ICD Code) Assessment Notes Treatment Notes Treatment Clinical Notes Section Notes 04/17/2024 Pain in right foot (ICD-10 - M79.671) 04/17/2024 Plantar fasciitis of right foot (ICD-10 - M72.2) 04/17/2024 Calcaneal spur, right foot (ICD-10 - M77.31) 04/17/2024 Interstitial myositis of right foot (ICD-10 - M60.171) 04/17/2024 Bursitis of right foot (ICD-10 - M77.51) 04/17/2024 Other Patient Educated with: RICE THERAPY.pdf (RICE THERAPY.pdf) Patient Educated with: INJECTIONTHERA PY.pdf (INJECTIONTHER APY.pdf) Plan Of Treatment Treatment Notes Assessment Notes Other Patient Educated wit h: RICE THERAPY.pdf (RICE THERAPY.pdf) Patient Educated with: INJECTIONTHERAPY.pdf (INJECTIONTHERAPY.pdf) Pending Test Test Name Order Date X ray : Foot, right 3V 04/17/2024 Next Appt Details Follow Up: 4 Weeks, Reason: Procedure Notes * Category Sub-Category Detail Notes Injection Tendon Sheath or Fascia 39003, J 0702 Injection - #1 RIGHT foot, Plantar Fascia w/ mixture of Celestone Soluspan 3mg and 1cc 1 percent Xylocaine Plain anes. utilizing aseptic technique. The patient tolerated the procedure well. A dry sterile dressing was applied. Post injection instructions were dispensed, verbally discussed, and confirmed understood by the patient. I explained that a steroid and local anesthetic injections are administered to relieve pain and inflammation and thereby meant to improve function. I explained the possible complications including but not limited to signs/symptoms of steroid flare, infection, bruising, atrophy, discoloration of skin, change/deviation in toe position, and that additional injections may be necessary, Patient relates post-procedural pain assessment improved at ( 0-1) out of 10, DM: Discussed the transient elevated effects an injection of cortisone may have on the patient's blood sugars Progress Notes * Inga FLORESDOB: [birth year] (73 yo F)Acc No.[id number]:04/17/2024 Progress Notes Patient:?Inga FLORES Provider:?Jahaira Dye DPM :1950???Age:73 Y???Sex:Female D ate:04/17/2024 Address:[address] [place] [address] Pcp:Vince Benavidez MD Subjective: * Chief Complaints: * ???Heel pain * HPI: ???Heel pain:?Location:?Proximal plantar aspect of Heel, RIGHT.?Duration:?Since Mar 19.?Course:?worse.?Aggravated:?standing, walking, walking first thing in the morning/after rest.?Treatments:?rest/alter normal daily activity, ice, heat, topical anti-inflammatory cream.?Severity/Quality:?Pre-injection procedure pain assessment - ( 10) out of 10.?Misc:?Patient states previous conservative therapy has not provided acceptable relief. Despite previous treatments/efforts, patient continues to relate substantial pain and significant functional disability during activity , The patient denies to have received any vaccine therapy within the past month.? * ROS:?General/Constitutional:?Nausea?denies.?Vomiting?denies.?Hunger Thirst?denies.?Loss appetite?denies.?Chills?denies.?Fatigue?denies.?Fever?denies.?Night Sweats?denies.?Unexplained weight loss?denies.?Unexplained [...] (Standard)?Tobacco use:?Nonsmoker ?Additional Findings: Tobacco non-user?Current nonsmoker ???Drugs/Alcohol:?Drugs?Have you used drugs other than those for medical reasons in the past 12 months??No ???Miscellaneous:?Caffeine: yes, frequency: 2 cups tea and 1 soda per day. ?Children: yes, 2. ?Exercise: no. ?Marital status: . ?Occupation: [employer]. ???Drug/Alcohol:?AUDIT-C (Standard)?Did you have a drink containing alcohol in the past year??No ?Points?0 ?Interpretation?Negative * Medications:?TakingVenlafaxi ne HCl 75 MG Tablet [...] Related: vomitingDemerol: vomitingSpironolactone: vomitingyes[Allergies Verified] Objective: * Vitals:?Ht:5 ft 1 in, Wt:207 , BMI:39.11, Shoe size:8, BP:147/70mm Hg, BS: not taken, Ht-cm: 154.94 cm, Wt-k.89 kg. * ???Past Orders: ???Lab:HEMOGLOBIN A1C (GLYCO HEMOGLOBIN) (Order Date - 01/01/2024) (Collection Date & Time - 01/01/2024 01:04 PM) ? Value Reference Range ?TOTAL HEMOGLOBIN (HGBA1C) 6.7 * Examination: ???Ophthalmology Referral: ?DIABETES EYE [...] extremities, Pt denies, anesthesia, burning, paresthesia, tingling, B/L.?TINEL'S COMPRESSION:?Negative tarsal tunnel, jesu pedis, and medial calcaneal nerves.?DEEP TENDON REFLEXES:?Achilles, 2/4, B/L.?Vascular: ?DP PULSES(B):?3/4, B/L.?PT PULSES(B):?3/4, B/L.?CAPILLARY FILL TIME:?immediate, all digits, B/L.?TROPHIC CONDITION-TEXTURE/ELASTICITY/TURGOR/HAIR GROWTH(B):?normal, B/L.?TEMPERTURE GRADIENT(C):?warm to cool, proximal to distal, B/L.?PIGMENTATION:?normal, B/L.?EDEMA(C):?absent, B/L.?Dermatologic: ?SKIN FINDINGS:?Skin exam reveals normal texture, elasticity, and turgor. There are no masses. The interspaces are clear.?Orthopedic: ?MUSCLE STRENGTH:?5/5 all groups in a symmetrical fashion , B/L.?GAIT ABNORMALITY:?antalgic.?FOOT MORPHOLOGY:? Pes Planus structure, Decreased Ankle joint dorsiflexion ROM, knee extended.?FOOTWEAR:?shoe gear properties exacerbate patients foot/toe deformity.?Heel Pain: ?INSPECTION:? Pain on Palpation to Plantar Fascia med. and central bands, intrinsic musc., infra-calcaneal bursa, and med calc tubercle , RIGHT foot, No pain: posterior/superior heel, achilles bursa/tendon, sinus tarsi, peroneals, or with lateral heel compression; no limited STJ ROM, calor, or ecchymosis.?X-Rays - IMAGING REPORT: ?Clinical Indication(s):? Evaluate for Fracture, Evaluate Biomechanical Deformity.?Views:?3 views of Foot, LAT, LO, MO, RIGHT??Taken by trained?Podiatric Coal Hiker (?SF).?Findings:? normal bone and soft tissue density consistent for patients age and sex, navicular/cuneiform plantar subluxation with anterior cyma line, positive infra-calcaneal exostosis,?positive retro-calcaneal exostosis.?Fracture:?Negative fractures identified.? Assessment: * Assessment: 1.?Pain in right foot - M79. 671???2.?Plantar fasciitis of right foot - M72.2 (Primary)???Specify :Acute problem, Complicated w/ Multiple Tx Options(4),Dx New problem, Prognosis Uncertain (4)???3.?Calcaneal spur, right foot - M77.31???4.?Interstitial myositis of right foot - M60.171???5.?Bursitis of right foot - M77.51??? Plan: * Treatment: 2.?Others? Notes: Patient Educated with: RICE THERAPY.pdf (RICE THERAPY.pdf) Patient Educated with: INJECTIONTHERAPY.pdf (INJECTIONTHERAPY.pdf)?? * Procedures:?Injection:?Tendon Sheath or Fascia?36500, J0702 Injection - #1 RIGHT foot, Plantar Fascia w/ mixture of Celestone Soluspan 3mg and 1cc 1 percent Xylocaine Plain anes. utilizing aseptic technique. The patient tolerated the procedure well. A dry sterile dressing was applied. Post injection instructions were dispensed, verbally discussed, and confirmed understood by the patient. I explained that a steroid and local anesthetic injections are administered to relieve pain and inflammation and thereby meant to improve function. I explained the possible complications including but not limited to signs/symptoms of steroid flare, infection, bruising, atrophy, discoloration of skin, change/deviation in toe position, and that additional injections may be necessary, Patient relates post-procedural pain assessment improved at ( 0-1) out of 10, DM: Discussed the transient elevated effects an injection of cortisone may have on the patient's blood sugars.? * Procedure Codes:?09377 X-RAY EXAM OF RIGHT FOOT 3V, Modifiers: 26 , [id number] INJ TENDON SHEATH/[id number] INJ BETAMETHSN ACTAT&SOD PHOSPH-3MG * Preventive Medicine:? ??Counseling:?Discussion:?-04: Office or other outpatient visit for the evaluation and management of a new patient, which required a medically appropriate history and/or examination and MODERATE level of DECISION MAKING for: 1 OR MORE CHRONIC PROBLEM(S) THATS WORSENING, 2 STABLE CHRONIC PROBLEMS, A NEWLY DIAGNOSED PROBLEM WITH UNCERTAIN PROGNOSIS, AN ACUTE COMPLICATED INJURY WITH MULTIPLE TREATMENT OPTIONS, OR AN ACUTE PROBLEM WITH ACCOMPANYING SYSTEMIC SYMPTOMS, THAT POSE(S) A MODERATE RISK OF MORBIDITY. THIS CONDITION MAY ALSO INCLUDE RX DRUG MANAGEMENT, OR A DECISON FOR MINOR SURGERY. The visit on the day of the [...] encouraged the patient to call the office.?Heel pain:?FASCIITIS: I explained to the patient the possible etiologies of Plantar Fasciitis including foot type/shoegear/activity level/exercise routine and the risks/benefits of all the different treatment options for heel pain including: No treatment at all, Rest, Ice, NSAIDs(only if well tolerated after meals), New/supportive Shoegear, Strappings and Tapings, Stretching exercises, Deep Tissue Massage, Heel cups/cushions, Arch support/shoe inserts, Custom orthoses, Topical analgesics including Aspercream/Voltaren gel, Night splint AFO for am stiffness, Cortisone injection therapy, Cast boot with crutches/cane/or walker for assisted ambulation, Physical Therapy, EPAT/ESWT, Interfil injection therapy, as well as surgical Harvey/Endoscopic Fasciitomy surgical procedures if needed. Recommendations were made to limit barefoot walking, eliminate wearing nonsupportive shoegear (i.e. flip-flops or sandals, or a shoe with an easily bendable, foldable, or twistable sole) and wear shoegear with a good solid sole, a supportive arch, and plenty of room for an insert/orthotic if necessary. If wearing sandals was required by the patient, we recommended orthopedic sandals such as Orthoheel or Birkenstock even while in the home. If the patient wore heels in the past, we recommended they continue, but eliminate the use of flats. The advantages and disadvantages of each option were discussed and the patients questions re: types of shoegear, custom vs prefabricated inserts, activity level, PO vs Topical medications (and their respective potential complications/drug interactions/side effects), and consistency in home treatment regimens for optimal success were answered to their satisfaction. Literature detailing plantar fasciitis and the various treatment options were dispensed and reviewed.?P.R.I.C.E.:?The patient was counseled on the use of P.R.I.C.E. and NSAIDS (if well tolerated) to aid in the recovery from their painful condition, The patient was counseled on the use of P.R.I.C.E. and NSAIDS (if well tolerated) to aid in the recovery from their painful condition.?Shoe Gear Counseling:?The patient and I reviewed the types of shoes they should be wearing. My recommendation included obtaining a well-fitted shoe with a good supportive, non-foldable nor twistable sole, plenty of toe/room for the forefoot, and proper arch support. Based on todays examination, I recommended the patient look for new shoes, by having their feet professionally measured. We discussed that generally the best time of the day for a shoe fitting is the afternoon. Different shoes types and brands to best match the patients occupation and vocation were discussed. Specific brand selection will be up to the patient, their individual foot condition/deformities, and fit. The patient and I reviewed the standard new shoe break in period by wearing them for a few hours a day while checking for redness or sores as wear time is increased. The patient verbally confirmed to understanding the information discussed.?Steriod Injection:?I explained that a steroid and local anesthetic injections are administered to relieve pain and inflammation and thereby meant to improve function. I explained the possible complications including but not limited to signs/symptoms of steroid flare, infection, bruising, atrophy, discoloration of skin, change/deviation in toe position, and that additional injections may be necessary, cortisone post-injection informative educational handout was dispensed to and reviewed with the patient, In order to prevent any compromise of an effective immune response, it was recommended the patient refrain from any vaccine therapy for the next month. Patient verbally confirmed understanding the previously mentioned protocol.?Stretching Exercises:?Stretching and deep tissue massage exercises for the patients injury/diagnosis were discussed and demonstrated, handouts were dispensed.?X-rays:?Discussed and reviewed the X-rays with the patient. We discussed how the findings relate to the patients symptoms/complaints. Answered any and all questions..? * Follow Up:?4 Weeks * Images: * Sign off status: Completed true * Provider:?Jahaira Dye DPM Date:? Generated for Jaguar tolbert/Shannon/Radhaitting on:?06/18/2024 11:39 AM EST History and Physical Notes * HPI (History of Present Illness) Category Sub-Category Detail Notes Category Not es Heel pain Duration: Since Mar 19 Severity/Quality: Pre-injection proced ure pain assessment - ( 10) out of 10 Location: Proximal plantar asp ect of Heel, RIGHT Aggravated: standing, walking, w alking first thing in the morning/after rest Course: worse Treatments: rest/alter normal da valeria activity, ice, heat, topical anti- inflammatory cream Misc: Patient states previ ous conservative therapy has not provided acceptable relief. Despite previous treatments/efforts, patient continues to relate substantial pain and significant functional disability during activity , The patient denies to have received any vaccine therapy within the past month Examination Category Sub-Category Detail Notes Category Not es Neurological SENSORY: Neurological exa m reveals intact sensorium, pain sensation normal, vibration sensation intact, pinprick sensation is normal in the lower extremities, Pt denies, anesthesia, burning, paresthesia, tingling, B/L TINEL'S COMPRESSION: Negative tarsal anuj terry, jesu pedis, and medial calcaneal nerves DEEP TENDON REFLEXES: Achilles, 2/4, B/L Dermatologic SKIN FINDINGS: Skin exam reveal s normal texture, elasticity, and turgor. There are no masses. The interspaces are clear Orthopedic GAIT ABNORMALITY: antalgic FOOT MORPHOLOGY: Pes Planus structure , Decreased Ankle joint dorsiflexion ROM, knee extended FOOTWEAR: shoe gear properties exacerbate patients foot/toe deformity MUSCLE STRENGTH: 5/5 all groups in a symmetrical fashion , B/L General Examination GENERAL APPEARANCE: Reveals a pleasant, alert, well- nourished, well-developed, well hydrated individual, who demonstrates proper attention to hygiene/body habitus, and is in no acute distress, Pt serves as own historian for office visit today ORIENTED: person, place, and t sheri Ophthalmology Referral DIABETES EYE EXAM Procedure Perform ed:: No Eye Exam not performed:: No reason speci fied Findings of Diabetic Eye Exam:: no retin opathy Vascular DP PULSES (B): 3/4, B/L PT PULSES (B): 3/4, B/L CAPILLARY FILL TIME: immediate, all digi ts, B/L TEMPERTURE GRADIENT (C): warm to cool, p roximal to distal, B/L TROPHIC CONDITION-TEXTURE/ELASTICITY/TURGOR/HAIR GROWTH (B): normal, B/L EDEMA (C): absent, B/L PIGMENTATION: normal, B/L X-Rays - IMAGING REPORT Findings: normal b one and soft tissue density consistent for patients age and sex, navicular/cuneiform plantar subluxation with anterior cyma line, positive infra-calcaneal exostosis, positive retro-calcaneal exostosis Fracture: Negative fractures i dentified Views: 3 views of Foot, LAT , LO, MO, RIGHT Taken by trained Podiatric Coal Hiker ( SF) Clinical Indication(s): Evaluate for Fra cture, Evaluate Biomechanical Deformity Heel Pain INSPECTION: Pain on Palpatio n to Plantar Fascia med. and central bands, intrinsic musc., infra-calcaneal bursa, and med calc tubercle , RIGHT foot, No pain: posterior/superior heel, achilles bursa/tendon, sinus tarsi, peroneals, or with lateral heel compression; no limited STJ ROM, calor, or ecchymosis
--- OUTSIDE RECORDS SUMMARY | 2024-06-18 11:39 | XMS_ITS | Patient Health Record ---
Author Organization [facility] Address [address] [facility] [place] [address] Care Team Providers Care Supervisor Agency Appointments Name Role Phone Vince Benavidez MD Primary Care Provider Jahaira Gross Unavailable [phone] Baltazar Verde Unavailable [phone] Allergies Allergen (clinical drug ingredient) Drug/Non Drug [...] (substance) Sulfa Antibiotics rash Drug Allergy Active Results Component Value Reference Range Notes HEMOGLOBIN A1C (GLYCOHEMOGLO BIN) Reviewed date:04/17/2024 01:05:29 PM Interpretation: Performing Lab: Notes/Report: TOTAL HEMOGLOBIN (HGBA1C) 6.7 HEMOGLOBIN A1C (GLYCOHEMOGLO BIN) Reviewed date:05/23/2024 03:03:51 PM Interpretation: Performing Lab: Notes/Report: HEMOGLOBIN A1C % (HH) 6.7 Reason For Referral No Information Medications Medication SIG (Take, Route, Frequency, Duration) Notes Start Date End Date Status Venlafaxine HCl 75 MG 1 tablet with food Orally Once a day Active Metoprolol Succinate 100 MG 1 capsule Or ally Once a day Active Metoprolol Succinate 25 MG 1 capsule Ora lly Once a day Active valACYclovir HCl 500 MG 1 tablet Orally Once a day Active Omeprazole 20 MG 1 capsule 1/2 to 1 h our before morning meal Orally Once a day Active Levothyroxine Sodium 125 MCG 1 tablet in the morning on an empty stomach Orally Once a day Active Trulicity 0.75 MG/0.5ML as directed Subcutaneous Active metFORMIN HCl 500 MG 1 tablet with a luisito l Orally Once a day Active Losartan Potassium 100 MG 1 tablet Orall y Once a day Active cloNIDine HCl 0.1 MG 1 tablet Orally Onc e a day Active Atorvastatin Calcium 40 MG 1 tablet Oral ly Once a day Active Social History Tobacco [...] W/U Status Risk Notes Problem Plantar fasciitis (202076124) Plantar fasciitis (M72.2) Active confirmed Resistant to previous conservative treatment Problem Plantar fasciitis of right foot (83473787386054 101) Plantar fasciitis of right foot (M72.2) Active confirmed Problem Interstitial myositis (75616605) Interstitial myositis of right foot (M60.171) Active confirmed Vital Signs Blood pressure diastolic 70 mm Hg 05/23/2024 Height 5ft1in in 05/23/2024 Blood pressure systolic 147 mm Hg 05/23/2024 Weight 207 lbs 05/23/2024 BMI 39.11 kg/m2 05/23/2024 Encounters Encounter Location Date Provider Diagnosis [facility] [address] [address] 04/17/2024 Jahaira Perica Pain in right foot M79.671 ; Plantar fasciitis of right foot M72.2 ; Calcaneal spur, right foot M77.31 ; Interstitial myositis of right foot M60.171 and [facility]ursitis of right foot M77.[facility] [address] 05/23/2024 Jahaira Perica Plantar fasciitis of right foot M72.2 Assessments Encounter Date Diagnosis (ICD Code) Assessment Notes Treatment Notes Treatment Clinical Notes Section Notes 04/17/2024 Pain in right foot (ICD-10 - M79.671) 04/17/2024 Plantar fasciitis of right foot (ICD-10 - M72.2) 05/23/2024 Plantar fasciitis of right foot (ICD-10 - M72.2) 04/17/2024 Calcaneal spur, right foot (ICD-10 - M77.31) 04/17/2024 Interstitial myositis of right foot (ICD-10 - M60.171) 04/17/2024 Bursitis of right foot (ICD-10 - M77.51) 04/17/2024 Other Patient Educated with: RICE THERAPY.pdf (RICE THERAPY.pdf) Patient Educated with: INJECTIONTHERA PY.pdf (INJECTIONTHER APY.pdf) 05/23/2024 Other Plan Of Treatment Pending Test Test Name Order Date X ray : Foot, right 3V 04/17/2024 Insurance Providers Payer Name Payer Address Payer Phone Subscriber Number Group Number Insured Name Patient Relationship to Insured Coverage Start Date Coverage End Date [employer] [address] [place] [address] [id number] Inga Flores Self - patient is the insured Medical (General) History Medical History History ICD Code Anxiety Back,Hip,and Knee pain Cancer covid-19 Depression Diabetic Diverticulosis High Blood Pressure thyroid Mumps Chicken pox Surgical History Surgery Date(Month/Year) hysterectomy 06/1989 bladder suspension 03/1994 Hernia Repair 12/2012 tonsillectomy 1966 appendectomy 1960
--- OUTSIDE RECORDS SUMMARY | 2024-06-18 11:40 | XMS_ITS ---
Author Organization [facility] Address [address] [place] [address] Care Team Providers Care Teacher Asst Name Role Phone Reema CASAS, Vince Primary Care Provider Jahaira Gross Unavailable [phone] Baltazar Verde Unavailable [phone] REASON FOR VISIT Seen Sooner Encounters Encounter Location Date Provider Diagnosis [facility] [address] [place] [address] 06/15/2024 Baltazar Verde Plan Of Treatment No Information Progress Notes * Inga FLORESDOB: [birth year] (73 yo F)Acc No.[id number]:06/15/2024 Progress Notes Patient:?Inga FLORES Provider:?Baltazar Verde DPM :1950???Age:73 Y???Sex:Female D ate:06/15/2024 Address:[address] [place], [place] [id number] Pcp:Vince Benavidez MD Subjective: * Chief Complaints: * ???1. Seen Sooner. * Medical History:? Objective: * Vitals:? Assessment: Plan: * Treatment: * Images: * The named appointment provid er may or may not be the originator of this progress note, and it is not deemed complete until electronically signed by the appointment provider. Sign off status: Pending * Provider:?Baltazar Verde DPM Date:?2024 Generated for Jaguar tolbert/Shannon/Paty on:?06/18/2024 11:39 AM EST
--- NOTE | 2024-06-18 12:19 | MHC.PC.OV ---
Vital Signs 06/18/24 12:21 Height 5 ft 1 in Weight 209 lb 8 oz BMI 39.6 BP 140/80 H Blood Pressure Location Rt brachial Position Sitting Respiration 16 Pulse 79 Pulse Source Pulse Oximeter Temp 98.4 F Temp Source Oral Pulse Oximetry (%) 94 Oxygen Delivery Method Room Air Intake Visit Reasons: f/u hypertension, diabetes Intake Note: htn/dm follow up Woodworking Shop Hand Required: No Allergies erythromycin base Allergy (Unknown, Verified 06/18/24 12:20) unknown meperidine [From Demerol] Allergy (Unknown, Verified 06/18/24 12:20) Unknown morphine Allergy (Unknown, Verified 06/18/24 12:20) unknown Sulfa (Sulfonamide Antibiotics) Allergy (Unknown, Verified 06/18/24 12:20) unknown Medication List - Last Reconciled 06/18/24 by Vince Benavidez MD atorvastatin 40 mg PO DAILY 90 days blood sugar diagnostic (FreeStyle Lite Strips) DX: E11.9, test blood sugar once a day, 90 days blood-glucose meter (FreeStyle Lite Meter kit) DX: E11.9, test blood sugar once a day. 999days clonidine HCl 0.05 mg (1/2 x 0.1 mg) PO BID 90 days dulaglutide (Trulicity) 0.75 mg (0.5 mL) subcut QWEEK 28 days lancets (FreeStyle Lancets) To test blood sugar once a day As directed, 90 days levothyroxine 125 mcg PO DAILY losartan 100 mg PO BID 90 days metformin 500 mg PO DAILY 90 days metoprolol succinate ER 25 mg PO DAILY 90 days metoprolol succinate ER 100 mg PO DAILY 90 days omeprazole 20 mg PO DAILY 90 days valacyclovir 500 mg PO DAILY venlafaxine 75 mg PO DAILY 90 days Tobacco use date assessed: 08/22/23 Dental Screening Dental Screen Date: 08/22/23 HPI f/u hypertension, diabetes HPI Details 73 y/o female presents to f/u HTN, diabetes. A1c in January 6.8%. A1c today 06/18/24 is 6.1%. Blood pressure today 140/80, 79p. She is on metoprolol, losartan 100mg b.i.d, clonidine. Acute adjustment disorder. Pt had lost her partner earlier this month. Has family for support and at her islam. 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 1. Little interest or pleasure in doing things: not at all 2. Feeling down, depressed, or hopeless: not at all 3. Trouble falling or staying asleep, or sleeping too much: not at all 4. Feeling tired or having little energy: not at all 5. Poor appetite or overeating: not at all 6. Feeling bad about yourself - or that you are a failure or have let yourself or your family down: not at all 7. Trouble concentrating on things, such as reading the newspaper or watching television: not at all 8. Moving or speaking so slowly that other people could have noticed. Or the opposite - being so fidgety or restless that you have been moving around a lot more than usual: not at all 9. Thoughts that you would be better off or of hurting yourself in some way: not at all Total score: 0 Source: Developed by Drs. Sudeep Reyes, Lacie Dodd, Santana Hodges and colleagues, with an educational faustino from [employer]. Thrive Questionnaire Date Thrive assessed: 05/14/24 I am a: Patient What is your living situation today?: I have a steady place to live Within the past 12 months, did the food you bought not last and you didn't have the money to get more?: Never true Within the past 12 months, did you worry whether your food would run out before you got money to buy more?: Never true Do you have trouble paying for medicines?: No Do you have trouble getting transportation to medical appointments?: No Do you have trouble paying your heating and electricity bill?: No Do you have trouble taking care of your child, family member or friend?: No Do you have trouble with day-to-day activities such as bathing, preparing meals, shopping, managing finances, etc.?: No Are you currently unemployed and looking for a job?: No Are you interested in more education?: No Please select the resources that you would like help with: None Currently or been in a relationship where the following occur: I choose not to answer THRIVE Score: 0 AUDIT C Alcohol Use Questionnaire (AUDIT-C) 3. How often do you have six or more drinks on one occasion?: Never Total Score: 0 GORAN-7 AMB Questionnaire GORAN-7 Date GORAN - 7 assessed: 08/22/23 Source: Developed by Drs. Sudeep Reyes, Lacie Dodd, Santana Hodges and colleagues, with an educational faustino from [employer]. Review of Systems Const Denies chills, Denies fatigue, Denies fever(s), Denies headache(s) and Denies weakness ENT Denies dizziness and Denies headache(s) Card Denies chest pain, Denies lightheadedness, Denies dyspnea and Denies other (Palpitations) Resp Denies cough, Denies dyspnea, Denies wheezing and Denies other ( shortness of breath) Musc Denies numbness and Denies tingling Neuro Denies dizziness, Denies headache(s), Denies numbness, Denies tingling, Denies paresthesias and Denies weakness Psych Denies anxiety and Denies depression Endo Denies fatigue Aller/Immun Denies wheezing Physical exam (Primary Care) Vital Signs: Last Vital Signs Temp 98.4 F 06/18/24 12:21 Pulse 79 06/18/24 12:21 Resp 16 06/18/24 12:21 BP 140/80 H 06/18/24 12:21 Pulse Ox 94 06/18/24 12:21 Oxygen Delivery Method Room Air 06/18/24 12:21 BMI result Body Mass Index 39.6 Tobacco/Smoking Status: Tobacco use Status Tobacco use date assessed 08/22/23 06/18/24 12:22 Patient Tobacco Use Status Never used Tobacco 06/18/24 12:22 e-Cigarette/Vaping Use Never Used 06/18/24 12:22 PHQ-9: PHQ-9 Score PHQ-9: Total score 0 06/18/24 12:28 Thrive Assessment: Date of Thrive Assessment Date Thrive assessed 05/14/24 06/18/24 12:22 Currently or been in a relationship where the following occur: I choose not to answer Const General: no acute distress and well developed Nutritional Appearance: well nourished Orientation/consciousness: patient oriented x3 HENMT Head: Yes normocephalic and Yes atraumatic Eyes General: appearance normal, both eyes and all related structures Pupils: Equal, round and reactive pupils present EOM: EOMs intact bilaterally Resp Effort & Inspection: normal respiratory effort Auscultation: clear to auscultation bilaterally Cardio Rate: regular rate Rhythm: regular rhythm Heart sounds: S1 normal heart sound present, S2 normal heart sound present, no gallops, no murmurs and no rubs Neuro General: patient oriented x3 and gait normal Cranial nerves: Yes Equal, round and reactive pupils present Psych Affect: normal affect Results AMB Hemoglobin A1c AMB Hemoglobin A1c 6.9 % Last Edit by Tae Ceja CMA on 06/18/24 12:58 Coding Level of Care Code Est Pt Level 4 (65726) Diagnoses Diabetes mellitus E11.9 Essential hypertension I10 Acute adjustment disorder F43.20 Assessment & Plan Assessment & Plan (1) Diabetes mellitus: Code(s): E11.9 - Type 2 diabetes mellitus without complications Category: Medical Plan: A1c?6.9%.??Goal?is?less?than?7.0% Continue?current?medications (2) Essential hypertension: Code(s): I10 - Essential (primary) hypertension Category: Medical Plan: Blood?pressure?much?improved?though?still?mildly?elevated. However,?she?has?been?taking?a?total?of?about?200?mg?of?losartan?daily. 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 She?will?let?know?if?there?is?anything I can do Orders: Orders AMB Hemoglobin A1c Today E11.9 - Type 2 diabetes mellitus without complications Basic Metabolic Panel Today I10 - Essential (primary) hypertension, Z00.00 - Encounter for general adult medical examination without abnormal findings Medications: New hydrochlorothiazide 12.5 mg PO QAM 30 days 30 tabs 3RF Refilled atorvastatin 40 mg PO DAILY 90 days 90 tabs 3RF
[2024-06-18 12:21] VITALS: BP 140/80; PULSE 79; RESP 16; TEMP 36.9; O2SAT 94; BMI 39.6
== END 2024-06-18 12:52 | disposition home or self-care (01) ==
PROVIDERS: PCP Family Medicine; Visit Provider Family Medicine
DX: E11.9 Type 2 diabetes mellitus without complications (principal); I10 Essential (primary) hypertension; F43.20 Adjustment disorder, unspecified

== ENCOUNTER → 2024-06-18 11:33 | Outpatient (BNVA) | payer OTHER, SELFPAY | PROVIDERS: PCP Family Medicine; Visit Provider Family Medicine | DX: E11.9 Type 2 diabetes mellitus without complications (principal); I10 Essential (primary) hypertension; F43.20 Adjustment disorder, unspecified; Z79.899 Other long term (current) drug therapy | CPT/HCPCS: 83036; 96127 ==

== ENCOUNTER 2024-06-18 13:02 | Outpatient (REF) | payer OTHER, SELFPAY ==
[2024-06-18 17:32] LABS: Anion Gap 14 (12-20); Blood Urea Nitrogen 11 mg/dL (9-16); Calcium 9.2 mg/dL (8.4-10.2); Carbon Dioxide 24 mmol/L (22-29); Chloride 107 mmol/L (96-108); Estimated Glomerular Filt Rate > 60; Glucose Random 120 mg/dL (60-115); Potassium 3.8 mmol/L (3.3-5.1); Sodium 141 mmol/L (135-145)
== END 2024-06-18 13:03 | disposition home or self-care (01) ==
LOC: HO.WFDLDS 13:02
PROVIDERS: Visit Provider Family Medicine
DX: Z00.00 Encounter for general adult medical examination without abnormal findings (principal); I10 Essential (primary) hypertension; E11.9 Type 2 diabetes mellitus without complications
CPT/HCPCS: 36415; 80048

== ENCOUNTER 2024-09-17 09:24 | Outpatient (AMB) | payer OTHER, SELFPAY ==
--- NOTE | 2024-09-17 09:37 | A.OFFPC_ITS ---
Vital Signs 09/17/24 09:41 Height 5 ft 1 in Weight 210 lb 6 oz BMI 39.7 BP 130/70 Blood Pressure Location Rt brachial Position Sitting Respiration 14 Pulse 68 Pulse Source Pulse Oximeter Temp 97.9 F Temp Source Oral Pulse Oximetry (%) 97 Oxygen Delivery Method Room Air Intake Visit Reasons: f/u HTN, diabetes Intake Note: follow up htn and dm follow up Spanish Speaking Babysitter Required: No Allergies erythromycin base Allergy (Unknown, Verified 09/17/24 09:38) unknown meperidine [From Demerol] Allergy (Unknown, Verified 09/17/24 09:38) Unknown morphine Allergy (Unknown, Verified 09/17/24 09:38) unknown Sulfa (Sulfonamide Antibiotics) Allergy (Unknown, Verified 09/17/24 09:38) unknown Medication List - Last Reconciled 09/17/24 by Vince Benavidez MD atorvastatin 40 mg PO DAILY 90 days blood sugar diagnostic (FreeStyle Lite Strips) DX: E11.9, test blood sugar once a day, 90 days blood-glucose meter (FreeStyle Lite Meter kit) DX: E11.9, test blood sugar once a day. 999days clonidine HCl 0.05 mg (1/2 x 0.1 mg) PO BID 90 days dulaglutide (Trulicity) 0.75 mg (0.5 mL) subcut QWEEK 28 days hydrochlorothiazide 12.5 mg PO QAM 30 days lancets (FreeStyle Lancets) To test blood sugar once a day As directed, 90 days levothyroxine 125 mcg PO DAILY losartan 100 mg PO BID 90 days metformin 500 mg PO DAILY 90 days metoprolol succinate ER 25 mg PO DAILY 90 days metoprolol succinate ER 100 mg PO DAILY 90 days omeprazole 20 mg PO DAILY 90 days valacyclovir 500 mg PO DAILY venlafaxine 75 mg PO DAILY 90 days Tobacco use date assessed: 08/22/23 Dental Screening Dental Screen Date: 08/22/23 HPI f/u HTN, diabetes HPI Details 74 y/o female presents to f/u diabetes, HTN, chronic conditions. Last A1c 06/18/24 6.9%. Pt notes she is not doing well mood luna. She is requesting a therapist. Has had therapy in the past. Blood pressure today 130/70, 68p. She is on losartan 100mg b.i.d, metoprolol, hydrochlorothiazide 12.5mg. Pt reports bilateral ear discomfort/itchiness. She has been using a hydrocortisone cream on a qtip for relief. Pt reports some urinary frequency, bladder spasms. She reports hx of bladder suspension surgery around 1984. HPI Comments History of Present Illness Details Documentation assistance for Vince Benavidez MD, was provided by Mehul Bright,? Research Fellow on 09/17/2024 at 10:16 AM EST. I, Dr. Benavidez, have read, observed, and verified documentation. ?? 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 Current occupational exposures/hazards: No Cognitive needs: No Hearing needs: No Vision needs: Yes Questionnaire Thrive Questionnaire Date Thrive assessed: 05/14/24 I am a: Patient What is your living situation today?: I have a steady place to live Within the past 12 months, did the food you bought not last and you didn't have the money to get more?: Never true Within the past 12 months, did you worry whether your food would run out before you got money to buy more?: Never true Do you have trouble paying for medicines?: No Do you have trouble getting transportation to medical appointments?: No Do you have trouble paying your heating and electricity bill?: No Do you have trouble taking care of your child, family member or friend?: No Do you have trouble with day-to-day activities such as bathing, preparing meals, shopping, managing finances, etc.?: No Are you currently unemployed and looking for a job?: No Are you interested in more education?: No Please select the resources that you would like help with: None Currently or been in a relationship where the following occur: I choose not to answer THRIVE Score: 0 GORAN-7 AMB Questionnaire GORAN-7 Date GORAN - 7 assessed: 08/22/23 Source: Developed by Drs. Sudeep Reyes, Lacie Dodd, Santana Hodges and colleagues, with an educational faustino from [employer]. Review of Systems Const Denies chills, Denies fatigue, Denies fever(s), Denies headache(s) and Denies weakness ENT Denies dizziness and Denies headache(s) Card Denies dyspnea Resp Denies cough, Denies dyspnea, Denies wheezing and Denies other (shortness of breath) Musc Denies numbness and Denies tingling Neuro Denies dizziness, Denies headache(s), Denies numbness, Denies tingling and Denies weakness Psych Denies anxiety and Denies depression Endo Denies fatigue Aller/Immun Denies wheezing Physical exam (Primary Care) Vital Signs: Last Vital Signs Temp 97.9 F 09/17/24 09:41 Pulse 68 09/17/24 09:41 Resp 14 09/17/24 09:41 BP 130/70 09/17/24 09:41 Pulse Ox 97 09/17/24 09:41 Oxygen Delivery Method Room Air 09/17/24 09:41 BMI result Body Mass Index 39.7 Tobacco/Smoking Status: Tobacco use Status Tobacco use date assessed 08/22/23 09/17/24 09:44 Patient Tobacco Use Status Never used Tobacco 09/17/24 09:44 e-Cigarette/Vaping Use Never Used 09/17/24 09:44 Thrive Assessment: Date of Thrive Assessment Date Thrive assessed 05/14/24 09/17/24 09:44 Currently or been in a relationship where the following occur: I choose not to answer Const General: well developed; No acute distress Nutritional Appearance: well nourished Orientation/consciousness: patient oriented x3 [facility] Head: Yes normocephalic and Yes atraumatic Eyes General: appearance normal, both eyes and all related structures Pupils: Equal, round and reactive pupils present EOM: EOMs intact bilaterally Resp Effort & Inspection: normal respiratory effort Auscultation: clear to auscultation bilaterally Cardio Rate: regular rate Rhythm: regular rhythm Heart sounds: S1 normal heart sound present, S2 normal heart sound present, no gallops, no murmurs and no rubs Neuro General: patient oriented x3 and gait normal Cranial nerves: Yes Equal, round and reactive pupils present Psych Affect: normal affect Coding Level of Care Code Est Pt Level 4 (66982) Diagnoses Diabetes mellitus E11.9 Essential hypertension I10 Anxiety and depression F41.9; F32.A Ear discomfort H92.09 Bladder spasms N32.89 Urinary frequency R35.0 Assessment & Plan Assessment & Plan (1) Diabetes mellitus: Code(s): E11.9 - Type 2 diabetes mellitus without complications Category: Medical Plan: A1c?climbed?from?6.9%?to?7.0%. Fair?control.??Goal?is?less?than?7.0% No?change?to?current?medication?regimen.??Encouraged?lifestyle?changes (2) Essential hypertension: Code(s): I10 - Essential (primary) hypertension Category: Medical Plan: Blood?pressure?is?controlled. She?is?taking?hydrochlorothiazide?losartan?in?metoprolol. (3) Anxiety and depression: Code(s): F41.9 - Anxiety disorder, unspecified; F32.A - Depression, unspecified Category: Medical Plan: Ongoing?depression?after?the??of?her?partner Referred?to?nurse?navigator?to?connect?her?with?a?therapist (4) Ear discomfort: Code(s): H92.09 - Otalgia, unspecified ear Category: Medical Plan: Bilateral?ear?discomfort She?has?mild?erythema?of?bilateral?ear?canals?with?some?flaking. Has?tried?hydrocortisone?cream Advised?ascetic?acid?with?isopropyl?alcohol?in?50?50?mix?on?cotton?pledgets/wick Can?also?continue?using?hydrocortisone (5) Bladder spasms: Code(s): N32.89 - Other specified disorders of bladder Category: Medical Plan: Urinary?frequency/urgency?and?her?crew scheduler?checked?her?urine?which?was?negative?for?i nfection. Will?try?mirabegron If?not?improving?will?refer?to?Urology (6) Urinary frequency: Code(s): R35.0 - Frequency of micturition Category: Medical Plan: As above Orders: Referrals Nurse Navigator Referral F32.A - Depression, unspecified, F41.9 - Anxiety disorder, unspecified Medications: New mirabegron ER 25 mg PO DAILY 90 days 90 tabs 2RF Changed From hydrochlorothiazide 12.5 mg PO QAM 30 days 30 tabs 3RF To hydrochlorothiazide 12.5 mg PO QAM 90 days 90 tabs 3RF From losartan take 1 tab (100mg) in the morning and 1/2 tab (50mg) in the evening 100 mg PO BID 90 days 135 tabs 3RF To losartan 100 mg PO DAILY 90 days 90 tabs 3RF Refilled metformin 500 mg PO DAILY 90 days 90 tabs 3RF Discontinued metoprolol succinate ER Take with metoprolol 50 mg daily to equal 75 mg daily Discontinued Reason: Doctor's Order 25 mg PO DAILY 90 days 90 tabs 3RF
[2024-09-17 09:41] VITALS: BP 130/70; PULSE 68; RESP 14; TEMP 36.6; O2SAT 97; BMI 39.7
--- OUTSIDE RECORDS SUMMARY | 2024-09-17 09:41 | XMS_ITS ---
Author Organization [facility] Address [address] [place] [address] Care Team Providers Care Veneer Gluer Name Role Phone Reema CASAS, Vince Primary Care Provider Jahaira Gross Unavailable [phone] Baltazar Verde Unavailable [phone] REASON FOR VISIT Seen Sooner Encounters Encounter Location Date Provider Diagnosis [facility] [address] [place] [address] 06/15/2024 Baltazar Verde Plan Of Treatment No Information Progress Notes * Inga FLORESDOB: [birth year] (74 yo F)Acc No.[id number]:06/15/2024 Progress Notes Patient:?Inga FLORES Provider:?Baltazar Verde DPM :1950???Age:73 Y???Sex:Female D ate:06/15/2024 Address:[address] [place], [place] [id number] Pcp:Vince Benavidez MD Subjective: * Chief Complaints: [...] Verde DPM Date:?2024 Generated for Jaguar tolbert/Shannon/Paty on:?09/17/2024 09:41 AM EDT
--- OUTSIDE RECORDS SUMMARY | 2024-09-17 09:41 | XMS_ITS ---
[facility] Address [address] [place] [address] Care Team Providers Care Store Lead Name Role Phone Vince Benavidez MD Primary Care Provider Jahaira Gross Unavailable [phone] Allergies Allergen (clinical drug ingredient) Drug/Non Drug [...] 025 Encounters Encounter Location Date Provider Diagnosis [facility] [address] [place] [address] 05/23/2024 Jahaira Dye Plantar fasciitis of right foot M72.2 Assessments Encounter Date Diagnosis (ICD Code) Assessment Notes Treatment Notes Treatment Clinical Notes Section Notes 05/23/2024 Plantar fasciitis of right foot (ICD-10 - M72.2) 05/23/2024 Other Plan Of Treatment Next Appt Details Follow Up: prn, Reason: Progress Notes * Inga FLORESDOB: [birth year] (73 yo F)Acc No.[id number]:05/23/2024 Progress Notes Patient:?Inga FLORES Provider:?Jahaira Dye DPM :1950???Age:73 Y???Sex:Female D ate:05/23/2024 Address:[address] [place], [place] [id number] Pcp:Vince Benavidez MD Subjective: * Chief Complaints: [...] 2. ?Exercise: no. ?Marital status: . 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 * Medications:?TakingVenlafaxi ne HCl 75 MG Tablet [...] 6.7 * Examination: ???Ophthalmology Referral: ?DIABETES EYE EXAM?Procedure Performed:?No ?Eye Exam not performed:?No reason specified?General Examination: ?GENERAL APPEARANCE:?Reveals a pleasant, alert, well-nourished, [...] Sign off status: Completed true * Provider:?Jahaira Dye, DPM Date:? Generated for Printi ng/Famichoacanog/eTransmitting on:?09/17/2024 09:41 AM EDT History and Physical Notes * HPI (History [...]
--- OUTSIDE RECORDS SUMMARY | 2024-09-17 09:41 | XMS_ITS | Clinical Summary ---
Author Organization [facility] Address [address] [place] [address] Care Team Providers Care Recenterer Name Role Phone Physician, No Pcp Primary Care Provider Unavaila ble Surgical History Surgery Date Site/Laterality Comments COLONOSCOPY 05/17/2014 PROCEDURE: HISTORICAL COLONOSCOPY; COMMENT: tubular adenoma UPPER GASTROINTESTINAL ENDOSCOPY 05/17/2014 PROCEDURE: UPPER GI ENDOSCOPY/EXAM APPENDECTOMY 1958 PROCEDURE: [place] APPENDECTOMY TONSILLECTOMY 1962 PROCEDURE: HISTORICAL TONSILLECTOMY OTHER SURGICAL HISTORY 2003 PROCEDURE: [place] THYROIDECTOMY TOTAL/COMPLETE; COMMENT: total thyroidectomy CARPAL TUNNEL RELEASE 1998 and 2004 PROCEDURE: [place] NEUROPLASTY &/TRANSPOS MEDIAN NRV CARPAL TUNNE OTHER SURGICAL HISTORY PROCEDURE: HISTORICAL PARATHYROID SURGERY; COMMENT: removal of 1 parathyroid HYSTERECTOMY 1989 PROCEDURE: HISTORICAL HYSTERECTOMY; COMMENT: CHASE BSO HAND SURGERY PROCEDURE: HISTORICAL HAND SURGERY; COMMENT: L thumb tendon releasr 2005 HAND SURGERY PROCEDURE: HISTORICAL HAND SURGERY; COMMENT: R index finger tendon release 2005 HERNIA REPAIR PROCEDURE: HISTORICAL HERNIA REPAIR/AYDIN BLADDER SUSPENSION 1994 PROCEDURE: HISTORICAL BLADDER SUSPENSION Medical History Medical History Date Comments Hypertension 12/04/2016 DX:Hypertension Hyperlipidemia 12/04/2016 DX:Hyperlipidemi a GERD (gastroesophageal reflux disease) 12/04/2016 DX:GERD (gastroesophageal reflux disease) IBS (irritable bowel syndrome) 12/04/2016 D X:IBS (irritable bowel syndrome) Migraine 12/04/2016 DX:Migraine Family history of breast cancer 12/04/2016 DX:Family history of breast cancer; COMMENT: Pt BRCA negative 02/12 History of thyroid cancer 12/04/2016 DX:His tory of thyroid cancer; COMMENT: 2003 treated with total thyroidectomy, no SANTILLAN ablation Papillary carcinoma. Follows with endocrinology Dr. Gerardo Diabetes mellitus type 2 wit h neurological manifestations (CMS/HCC V24, CMS/HCC V28) 12/04/2016 DX:Diabetes mellitus type 2 with neurological manifestations (HCC); COMMENT: Parasthesias of the feet bilaterally Urinary incontinence 12/04/2016 DX:Urinary incontinence; COMMENT: Secondary to rectal and vaginal prolapase. 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 DX:Art hritis of lumbar spine; COMMENT: Xray 04/04/2017 Diverticulitis 05/24/2017 DX:Diverticuliti s; COMMENT: 05/22/2017 [facility] Hypothyroidism 12/04/2016 DX:Hypothyroidis m; COMMENT: Follows with endocrinology Obesity (BMI 30-39.9) 10/17/2017 DX:Obesity (BMI 30-39.9) Tubular adenoma 12/04/2016 DX:Tubular adeno ma; COMMENT: Last colonoscopy 11/2017/ repeat every 5 years Family History Medical History Relation Name Comments Stroke Father gout, diabetes Osteoporosis Maternal Grandmother arthrit is Coronary artery disease Mother hype rlipidemia, arthritis Breast cancer Sister kidney cancer and ESRD Relation Name Status Comments Father Maternal Grandmother Mother Sister Social History Tobacco Use Types Packs/Day Years Used Date Smoking Tobacco: Never Smokeless Tobacco: Never Alcohol Use Standard Drinks/Week Comments Yes 0 (1 standard drink = 0.6 oz pur e alcohol) Comments Unknown Sex and Gender Information Value Date Recorded Sex Assigned at Not on file Legal Sex Female 2:39 AM EST Gender Identity Not on file Sexual Orientation Not on file Obstetrics History Last Filed Vital Signs Vital Sign Reading Time Taken Comments Blood Pressure - - Pulse - - Temperature - - Respiratory Rate - - Oxygen Saturation - - Inhaled Oxygen Concentration - - Weight 94.8 kg (209 lb) 05/13/2023 8:22 AM EST Height 157.5 cm (5' 2 ) 05/13/2023 8:22 AM EST Body Mass Index 38.23 05/13/2023 8:22 AM EST Plan of Treatment Upcoming Encounters Date Type Department Care Team (Late st Contact Info) Description 10/01/2024 7:30 AM EDT [facility]ointment [facility] [address] [address] Health Maintenance Due Date Last Done Comments Diabetes: Annual GFR (Glomerular Filtration Rate) 1950 Diabetes: Annual Foot Exam 1962 Diabetes: Annual Retina Eye Exam 1962 Zoster Vaccines (1 of 2) 2002 Pneumococcal Vaccine: 50+ Years (2 of 2 - PCV) 10/17/2018 10/17/2017, 11/12/2015 Cholesterol Screening (Lipid Panel) 04/04/2022 Colorectal Cancer Screening: Colonoscopy 04/04/2022 Depression Screening 04/04/2022 Falls Risk Assessment 04/04/2022 Hepatitis C Screening 04/04/2022 Osteoporosis Screening (Bone Density Screening) 04/04/2022 Social Influencers of Health Screening 04/04/2022 Diabetes: Annual Urine Albumin-Creatinine Ratio (uACR) 04/15/2022 Diabetes: Blood Sugar Control Test (HGBA1C) 04/15/2022 Hypertension/CHF/CAD Annual BMP Blood Test 04/15/2022 COVID-19 Vaccine ( season) 2024 Breast Cancer Screening 05/19/2024 05/19/19 23, 09/12/2020, 01/08/2019 Influenza Vaccine (Season Ended) 2024 02/04/2021, 02/07/2020, 01/15/2019, Additional history exists DTaP,Tdap,and Td Vaccines (2 - Td or Tdap) 03/23/2027 03/23/2017 RSV Immunization Adult Patients (1 - 1-dose 75+ series) 09/03/2027 HIB Vaccines Aged Out No longer eligi ble based on patient's age to complete this topic HPV Vaccines Aged Out No longer eligi ble based on patient's age to complete this topic Hepatitis A Vaccines Aged Out No long er eligible based on patient's age to complete this topic Hepatitis B Vaccines Aged Out No long er eligible based on patient's age to complete this topic IPV Vaccines Aged Out No longer eligi ble based on patient's age to complete this topic MMR Vaccines Aged Out No longer eligi ble based on patient's age to complete this topic Meningococcal ACWY Vaccine Aged Out N o longer eligible based on patient's age to complete this topic Meningococcal B Vaccine Aged Out No l onger eligible based on patient's age to complete this topic RSV Immunization Patients Under 20 months Aged Out No longer eligible based on patient's age to complete this topic Varicella Vaccines Aged Out No longer eligible based on patient's age to complete this topic Procedures Procedure Name Priority Date/Time Associated Diagnosis Comments [facility] SCREENING DIGITAL Routine 05/19/2022 11:24 AM EST Encounter for screening mammogram for malignant neoplasm of breast from Last 3 Months or Most Recently Relevant to Health Maintenance Results * [facility] SCREENING DIGITAL (05/19/2022 11:24 AM EST) Anatomical Region Laterality Modality Mammography 05/19/2022 7:48 AM EST Narrative 05/19/2022 11:24 AM EST [facility] Diagnostic Imaging Department [address] [place] [address] Patient: ??INGA FLORES ?/Age/Sex: 1950 71 - F Unit#: ??[id number] ? Location/Status: ??SPDIMAM/REG CLI ? Mnemonic/Ordering Site: ??DIGSC/SPMAM Ordering Physician: ??VINCE KAY MD [facility] Screening Digital - 05/19/22814 INDICATION: SCREENING COMPARISON: [facility] mammograms dating back to ?? 12/11/2012 TECHNIQUE: CC and MLO views of the breasts were obtained, using full field digital mammography with 3D tomosynthesis views in the MLO projection. Computer aided detection with the iCAD SecondLook 7.2-H was employed. FINDINGS: The breasts contain heterogeneously dense tissues, which may lower sensitivity of mammography in this patient. Metallic ribbon marker again visualized on the left. No suspicious masses, suspicious microcalcifications, or areas of architectural distortion are identified. ??There are no secondary signs of breast malignancy. Benign-appearing breast calcifications are present bilaterally. IMPRESSION: ??No specific mammographic evidence of breast malignancy. Lack of an imaging correlate should not deter or delay biopsy of a clinically significant palpable finding. BI-RADS ??- Category 2 - Benign finding 3342F, 7025F Annual screening mammography is recommended. Patient entered into a reminder system with a target date for the next mammogram. (G0202 / [id number]) , ??[id number] Dictating Physician: ??TE RICK MD Electronically Signed by: ??TE RICK MD Dic Date/Time: ??05/19/22 1120 Sign date/Time: ??05/19/22 1124 Procedure Note Te Rick MD - 06/03/2023 [facility] Diagnostic Imaging Department [address] [place] [address] Patient: INGA FLORES ALESHA WhitmoreO.B./Age/Sex: 1950 71 - F Unit#: [id number] Location/Status: SPDIMAM/REG CLI Mnemonic/Ordering Site: [facility] Ordering Physician: VINCE KAY MD [facility] Screening Digital - 05/19/22814 INDICATION: SCREENING COMPARISON: [facility] mammograms dating back to 12/11/2012 TECHNIQUE: CC and MLO views of the breasts were obtained, using full field digital mammography with 3D tomosynthesis views in the MLO projection. Computer aided detection with the SOA Software 7.2-H was employed. FINDINGS: The breasts contain heterogeneously dense tissues, which may lowersensitivity of mammography in this patient. Metallic ribbon marker again visualized on the left. No suspicious masses, suspicious microcalcifications, or areas ofarchitectural distortion are identified. There are no secondary signs of breastmalignancy. Benign-appearing breast calcifications are present bilaterally. IMPRESSION: No specific mammographic evidence of breast malignancy. Lack of an imaging correlate should not deter or delay biopsy of aclinically significant palpable finding. BI-RADS - Category 2 - Benign finding 3342F, 7025F Annual screening mammography is recommended. Patient entered into a reminder system with a target date for the next mammogram. G0202 [id number] , [id number] Dictating Physician: TE RICK MD Electronically Signed by: TE RICK MD Dic Date/Time: 05/19/22 1120 Sign date/Time: 05/19/22 1124 Vince Kay MD IMG BI PROCEDURES Final Res ult from Last 3 Months or Most Recently Relevant to Health Maintenance Insurance MEDICARE AETNA Care Teams Recenterer Relationship Specialty Start Date End Date Physician, No Pcp PCP - General 09/05/24
--- OUTSIDE RECORDS SUMMARY | 2024-09-17 09:41 | XMS_ITS | Patient Health Record ---
Author Organization [facility] Address [address] [facility] [address] Care Team Providers Care Rack Carrier Name Role Phone Vince Benavidez MD Primary Care Provider Jahaira Gross Unavailable [phone] Baltazar Verde Unavailable [phone] Allergies Allergen (clinical drug ingredient) Drug/Non Drug [...] W/U Status Risk Notes Problem Plantar fasciitis (029352137) Plantar fasciitis (M72.2) Active confirmed Resistant to previous conservative treatment Problem Plantar fasciitis of right foot (54608688625701 101) Plantar fasciitis of right foot (M72.2) Active confirmed Problem Interstitial myositis (36643116) Interstitial myositis of right foot (M60.171) Active confirmed Vital Signs Blood pressure diastolic 70 mm Hg 05/23/2024 Height 5ft1in in 05/23/2024 Blood pressure systolic 147 mm Hg 05/23/2024 Weight 207 lbs 05/23/2024 BMI 39.11 kg/m2 05/23/2024 Encounters Encounter Location Date Provider Diagnosis [facility] [address] [address] 04/17/2024 Jahaira Perica Pain in right foot M79.671 ; Plantar fasciitis of right foot M72.2 ; Calcaneal spur, right foot M77.31 ; Interstitial myositis of right foot M60.171 and Bursitis of right foot M77.[address] [facility] [address] 05/23/2024 Jahaira Perica Plantar fasciitis of right [...] Date Coverage End Date [employer] [address] [place] [address] [id number] Inga Flores Self - patient is the insured Medical (General) History Medical History History ICD Code Anxiety Back,Hip,and Knee pain Cancer covid-19 Depression Diabetic Diverticulosis High Blood Pressure thyroid Mumps Chicken pox Surgical History Surgery Date(Month/Year) hysterectomy 06/1989 bladder suspension 03/1994 Hernia Repair 12/2012 tonsillectomy 1966 appendectomy 1960
--- OUTSIDE RECORDS SUMMARY | 2024-09-17 09:41 | XMS_ITS | Continuity of Care Document ---
Author Organization [facility] Address [address] [place] [address]- Care Team Providers Care Barge Engineer Name Role Phone Reema CASAS, Vince Higgins Primary Care Physician [phone] Encounter [facility] Date(s): 08/15/24 - 09/14/24 [facility] [address] [place], [place] [address] Attending Physician: Yannick Bay Admitting Physician: Yannick Bay Referring Physician: Yannick Bay Referring Physician: Lluvia Bush Encounter Type: Triage Allergies, Adverse Reactions, Alerts Substance Criticality Severity Reaction Reaction Severity Status meperidine Unknown Active azithromycin vomiting Active nitrofurantoin Nausea and vomiting Active sulfamethoxazole Unknown Act maria elena sulfamethoxazole-trimetho prim Unknown Active indapamide 1 Unknown Active morphine Unknown Active sulfa drugs Unknown Active Demerol HCl Active Meperidine HCl-Promethazine HCl Unknown Active Nitrofurantoin Macrocrystals Nausea and vomiting Active metFORMIN 2 Nausea and vomiting Active erythromycin Unknown Active Morphine Sulfate Unknown Act maria elena sulfADIAZINE Active glipiZIDE 3 Unknown Active spironolactone 4 Diarrhea Act maria elena Biaxin vomiting Active amLODIPine 5 Unknown Active 1Outside Source Comment: Dehydration urinary frequency 2OK on 500mg cannot take 1000mg 3Outside Source Comment: States she has no control over right extremities 4Outside Source Comment: And abdominal pain 5Outside Source Comment: Abdominal pain Medications atorvastatin 40 mg oral tablet 90 each, 0 Refill(s), TAKE 1 TABLET ORALLY DAILY FOR 90 DAYS, 0 Refills, 4/16/25 2:11:00 PM EDT, Partial fill upon patient request if the prescription is for a schedule II opioid drug. Start Date: 08/15/24 Status: Ordered Repeat number: 1 cloNIDine 0.1 mg oral tablet 0 Refill(s), TAKE 1/2 TABLET BY MOUTH TWICE A DAY FOR 90 DAYS, Refills 0, 09/09/22 8:00:00 PM EDT, Partial fill upon patient request if the prescription is for a schedule II opioid drug. Start Date: 09/09/22 Status: Ordered Repeat number: 1 levothyroxine 125 mcg (0.125 mg) oral tablet 90 each, 0 Refill(s), TAKE 1 TABLET (125 MCG TOTAL) BY MOUTH EVERY MORNING. ON AN EMPTY STOMACH, 0 Refills, 08/15/24 2:11:00 PM EDT, Partial fill upon patient request if the prescription is for a schedule II opioid drug. Start Date: 08/15/24 Status: Ordered Repeat number: 1 losartan 100 mg oral tablet 135 each, 0 Refill(s), TAKE 1 TABLET BY MOUTH EVERY MORNING AND 1/2 TABLET DAILY EVERY EVENING, 0 Refills, 08/15/24 2:11:00 PM EDT, Partial fill upon patient request if the prescription is for a schedule II opioid drug. Start Date: 08/15/24 Status: Ordered Repeat number: 1 losartan 50 mg oral tablet 1 Unknown, Oral, 0 Refill(s), Take 1 tablet by mouth 2 (two) times a day., Refills 0, 09/05/22 8:00:00 PM EDT, Partial fill upon patient request if the prescription is for a schedule II opioid drug. Start Date: 09/05/22 Status: Ordered Repeat number: 1 metFORMIN 500 mg oral tablet 1 tablet = 500 mg, By Mouth, 2 times a day, 1 Unknown, 0 Refill(s), 0 Refills, 08/15/24 2:11:00 PM EDT, Partial fill upon patient request if the prescription is for a schedule II opioid drug. Start Date: 08/15/24 Status: Ordered Repeat number: 1 metoprolol 100 mg oral tablet 100 mg, 1, tablet, By Mouth, 2 times a day, # 180 tablet, Refills 0, Maintenance, 04/27/16 8:37:58 AM EST Start Date: 04/27/16 Status: Ordered Quantity: 180.0 Unit: tablet Repeat number: 1 metoprolol succinate 25 mg oral capsule, extended release 1 Unknown, 0 Refill(s), 0 Refills, 08/15/24 2:11:00 PM EDT, Partial fill upon patient request if theprescription is for a schedule II opioid drug. Start Date: 08/15/24 Status: Ordered Repeat number: 1 omeprazole 20 mg oral enteric coated capsule 1 capsule = 20 mg, By Mouth, Daily, # 30 capsule, 0 Refills, Maintenance, 04/27/16 8:38:29 AM EST, EC Capsule Start Date: 04/27/16 Status: Ordered Quantity: 30.0 Unit: capsule Repeat number: 1 Trulicity Pen 0.75 mg/0.5 mL subcutaneous solution 0 Refill(s), INJECT CONTENTS OF 1 PEN UNDER SKIN EVERY WEEK, 0 Refills, 09/29/22 8:00:00 PM EDT, Partial fill upon patient request if the prescription is for a schedule II opioid drug. Start Date: 09/29/22 Status: Ordered Repeat number: 1 valACYclovir 500 mg oral tablet 1, tablet, By Mouth, Daily, # 90 tablet, Refills 1, Tot. Refills 1, Maintenance, 08/15/24 2:46:00 PMEDT, Route to Pharmacy Electronically, [facility]/pharmacy #[id number], 157, cm, 08/15/24 14:05:00 EDT, Height Start Date: 08/15/24 Status: Ordered Quantity: 90.0 Unit: tablet Repeat number: 2 venlafaxine 75 mg oral tablet 0.5 tablet = 37.5 mg, By Mouth, 2 times a day, # 60 tablet, 0 Refills, Maintenance, 11/09/22 10:34:00 AM EDT, Tablet, Partial fill upon patient request if the prescription is for a schedule II opioid drug. Start Date: 11/09/22 Status: Ordered Quantity: 60.0 Unit: tablet Repeat number: 1 Vitamin D3 125 mcg (5000 intl units) oral tablet, disintegrating 1 tablet = 125 mcg, By Mouth, Daily, 0 Refills, Maintenance, 11/09/22 10:04:00 AM EDT, Partial fill upon patient request if the prescription is for a schedule II opioid drug. Start Date: 11/09/22 Status: Ordered Repeat number: 1 Problem List Condition Confirmation Course Effective Dates Status H ealth Status Informant Depression Confirmed Active Diabetes Confirmed Active Diverticulosis Confirmed Active Diverticulitis Confirmed Active Essential hypertension Confirmed Active History of chicken pox Confirmed Active Herpesviral vulvovaginitis Confirmed Active Hx of thyroid cancer Confirmed Active History of thyroid cancer Confirmed Active High cholesterol Confirmed Active High blood pressure Confirmed Active IBS (irritable bowel syndrome) Confirmed Active Severe obesity (BMI 35.0-39.9) with comorbidity Confirmed Active Type 2 diabetes mellitus Confirmed Active Social History Social History Type Response Smoking Status Never smoker entered on: 04/27/16 Sex Sex Representation Female (finding) MG Breast Views * Event Display: MM Mammogram Authored Date: Patient Care team information Care Team Personnel Name: Vince Benavidez MD Position: [facility] Outreach Member Role: PCP Address: [address] [place] [address] Telecom: Care Team Related Persons Name: CHINO VELOZ Name: MERRILL VELOZ Insurance Providers Guarantor name: IVETTE Health Plan Information #: 1 Payer: [employer] Member Number: NA Policy Number: NA Group Number: NA
--- OUTSIDE RECORDS SUMMARY | 2024-09-17 09:41 | XMS_ITS ---
Author Organization [facility] Address [address] [place] [address] Care Team Providers Care Examining Chair Assembler Name Role Phone Vince Benavidez MD Primary Care Provider Jahaira Gross Unavailable [phone] Allergies Allergen (clinical drug ingredient) Drug/Non Drug [...] Notes Problem Plantar fasciitis of right foot (21934698109677 101) Plantar fasciitis of right foot (M72.2) Active confirmed Problem Interstitial myositis (96057742) Interstitial myositis of right foot (M60.171) Active confirmed Problem Plantar fasciitis (266737120) Plantar fasciitis (M72.2) Active confirmed Resistant to previous conservative treatment Vital Signs Height 5 ft 1 in in 04/17/2024 Weight 207 lbs 04/17/2024 BMI 39.11 kg/m2 04/17/2024 Blood pressure systolic 147 mm Hg 04/17/20 24 Blood pressure diastolic 70 mm Hg 024 Encounters Encounter Location Date Provider Diagnosis [facility] [place] [address] [place] [address] 04/17/2024 Jahaira Perica Pain in right foot [...] Detail Notes Injection Tendon Sheath or Fascia 08479, J 0702 Injection - #1 RIGHT foot, [...] * Inga FLORESDOB: [birth year] (73 yo F)Acc No.[id number]:04/17/2024 Progress Notes Patient:?Inga FLORES Provider:?Jahaira Dye DPM :1950???Age:73 Y???Sex:Female D ate:04/17/2024 Address:[address] [place] [address] Pcp:Vince Benavidez MD Subjective: * Chief Complaints: [...] 2. ?Exercise: no. ?Marital status: . ?Occupation: [employer]. ???Drug/Alcohol:?AUDIT-C (Standard)?Did you have a drink [...] EXAM?Procedure Performed:?No ?Eye Exam not performed:?No reason specified ?Findings of Diabetic Eye Exam:?no retinopathy?General Examination: ?GENERAL APPEARANCE:?Reveals a pleasant, alert, well-nourished, [...] Foot, LAT, LO, MO, RIGHT??Taken by trained?Podiatric Hat Stock Laminating Machine Operator (?SF).?Findings:? normal bone and soft tissue density [...] with: INJECTIONTHERAPY.pdf (INJECTIONTHERAPY.pdf)?? * Procedures:?Injection:?Tendon Sheath or Fascia?27489, J0702 Injection - #1 RIGHT foot, Plantar [...] on the patient's blood sugars.? * Procedure Codes:?44583 X-RAY EXAM OF RIGHT FOOT 3V, Modifiers: 26 , DO04769 INJ TENDON SHEATH/[id number] INJ BETAMETHSN ACTAT&SOD PHOSPH-3MG * Preventive Medicine:? [...] Interfil injection therapy, as well as surgical [place]/Endoscopic Fasciitomy surgical procedures if needed. Recommendations were [...] Dye DPM Date:? Generated for Jaguar tolbert/Shannon/Radhaitting on:?09/17/2024 09:41 AM EDT History and Physical [...] Decreased Ankle joint dorsiflexion ROM, knee extended FOOTWEAR EVALUATION: shoe gear propertie s exacerbate patients foot/toe deformity MUSCLE STRENGTH: 5/5 [...] LO, MO, RIGHT Taken by trained Podiatric Hat Stock Laminating Machine Operator ( SF) Clinical Indication(s): Evaluate for Fra [...]
== END 2024-09-17 10:27 | disposition home or self-care (01) ==
LOC: HO.HMCFM 09:24
PROVIDERS: PCP Family Medicine; Visit Provider Family Medicine
DX: E11.9 Type 2 diabetes mellitus without complications (principal); I10 Essential (primary) hypertension; F41.9 Anxiety disorder, unspecified; F32.A Depression, unspecified; H92.09 Otalgia, unspecified ear; N32.89 Other specified disorders of bladder; R35.0 Frequency of micturition

== ENCOUNTER → 2024-09-17 09:24 | Outpatient (BNVA) | payer OTHER, SELFPAY | PROVIDERS: PCP Family Medicine; Visit Provider Family Medicine | DX: E11.9 Type 2 diabetes mellitus without complications (principal); I10 Essential (primary) hypertension; F41.9 Anxiety disorder, unspecified; F32.A Depression, unspecified; H92.03 Otalgia, bilateral; N32.89 Other specified disorders of bladder; R35.0 Frequency of micturition; Z79.899 Other long term (current) drug therapy | CPT/HCPCS: 83036 ==

== ENCOUNTER 2024-10-16 10:52 | Outpatient (REF) | payer OTHER, SELFPAY ==
--- OUTSIDE RECORDS SUMMARY | 2024-10-16 12:22 | XMS_ITS | Patient Health Record ---
Author Organization [facility] Address [address] [place] [address] Care Team Providers Care Tiedown Operator Name Role Phone Vince Benavidez MD Primary Care Provider Jahaira Gross Unavailable [phone] Baltazar Verde Unavailable [phone] Allergies Allergen (clinical drug ingredient) Drug/Non Drug [...] Range Notes HEMOGLOBIN A1C (GLYCOHEMOGLO BIN) Reviewed date:05/23/2024 03:03:51 PM Interpretation: Performing Lab: Notes/Report: HEMOGLOBIN A1C % (HH) 6.7 HEMOGLOBIN A1C (GLYCOHEMOGLO BIN) Reviewed date:04/17/2024 01:05:29 PM Interpretation: Performing Lab: Notes/Report: TOTAL HEMOGLOBIN (HGBA1C) 6.7 Reason For Referral No Information Medications [...] W/U Status Risk Notes Problem Plantar fasciitis (118124682) Plantar fasciitis (M72.2) Active confirmed Resistant to previous conservative treatment Problem Plantar fasciitis of right foot (09261008172846 101) Plantar fasciitis of right foot (M72.2) Active confirmed Problem Interstitial myositis (33409139) Interstitial myositis of right foot (M60.171) Active confirmed Vital Signs Blood pressure diastolic 70 mm Hg 05/23/2024 Height 5ft1in in 05/23/2024 Blood pressure systolic 147 mm Hg 05/23/2024 Weight 207 lbs 05/23/2024 BMI 39.11 kg/m2 05/23/2024 Encounters Encounter Location Date Provider Diagnosis [facility] [address] [address] 04/17/2024 Jahaira Perica Pain in right foot M79.671 ; Plantar fasciitis of right foot M72.2 ; Calcaneal spur, right foot M77.31 ; Interstitial myositis of right foot M60.171 and Bursitis of right foot M77.[address] [facility] [address] 05/23/2024 Jahaira Perica Plantar fasciitis of right [...] Date Coverage End Date A[employer] [address] [place] [address] [id number] Inga Flores Self - patient is the insured Medical (General) History Medical History History ICD Code Anxiety Back,Hip,and Knee pain Cancer covid-19 Depression Diabetic Diverticulosis High Blood Pressure thyroid Mumps Chicken pox Surgical History Surgery Date(Month/Year) hysterectomy 06/1989 bladder suspension 03/1994 Hernia Repair 12/2012 tonsillectomy 1966 appendectomy 1960
== END 2024-10-16 10:53 | disposition home or self-care (01) ==
LOC: HO.SH 10:52
PROVIDERS: Visit Provider Family Medicine
DX: Z01.118 Encounter for examination of ears and hearing with other abnormal findings (principal); H90.3 Sensorineural hearing loss, bilateral; H93.13 Tinnitus, bilateral
CPT/HCPCS: 92557; 92567

== ENCOUNTER 2024-11-23 12:55 | Outpatient (REF) | payer OTHER, SELFPAY ==
--- OUTSIDE RECORDS SUMMARY | 2024-06-15 05:30 | XMS_ITS ---
Author Organization [facility] Address [address] [place] [address] Care Team Providers Care Arts Administrator Or Manager Name Role Phone Reema CASAS, Vince Primary Care Provider Jahaira Gross Unavailable [phone] Baltazar Verde Unavailable [phone] REASON FOR VISIT Seen Sooner Encounters Encounter Location Date Provider Diagnosis [facility] [address] [place] [address] 06/15/2024 Baltazar Verde Plan Of Treatment No Information Progress Notes * Inga FLORESDOB: [birth year] (74 yo F)Acc No.[id number]:06/15/2024 Progress Notes Patient: Jaylen SYLVESTER Inga Higgins Provider: Bassam Verde DPM :1950 A ge:73 Y S ex:Female Date:06/15/2024 Address:[address] [place], [place] [id number] Pcp:Vince Benavidze MD Subjective: * Chief Complaints: * 1 . Seen Sooner. * Medical History: Objective: * Vitals: Assessment: Plan: * Treatment: * Images: * The named appointment provid er may or may not be the originator of this progress note, and it is not deemed complete until electronically signed by the appointment provider. Sign off status: Pending * Provider: Bassam Verde DPM Date: 06/15/2024 Generated for Printi ng/Famichoacanog/eTransmitting on: 0 11/23/2024 12:57 PM EDT
--- OUTSIDE RECORDS SUMMARY | 2024-11-23 12:57 | XMS_ITS | Clinical Summary ---
Author Organization Formerly [facility] Address [address] [place] [phone] Phone Care Team Providers Care Analytical Manager Name Role Phone Vince Benavidez MD Primary Care Provider Allergies Active Allergy Reactions Criticality Noted Date Comments Amlodipine 04/05/2019 Abdominal pain Erythromycin 02/13/2016 Glipizide 10/05/2022 States she has no control over right extremities Indapamide 04/05/2019 Dehydration urinary frequency Meperidine 02/13/2016 Meperidine Hcl Unknown 02/13/2016 Morphine Sulfate 02/13/2016 Nitrofurantoin Macrocrystal Nausea And Vomiting Medium 06/08/2018 Spironolactone Diarrhea 04/05/2019 And abdominal pain Sulfa (Sulfonamide Antibiotics) 02/13/2016 Medications metFORMIN (GLUCOPHAGE-XR) 500 MG 24 hr tablet 1 tab Oral Active venlafaxine (EFFEXOR) 75 MG tablet Take 1 tablet by mouth 2 (two) times a day with meals. Active atorvastatin (LIPITOR) 40 MG tablet Take 40 mg by mouth daily. Active losartan (COZAAR) 50 MG tablet Take 1 tablet by mouth 2 (two) times a day. Active valACYclovir (VALTREX) 500 MG tabletIndications :Herpes Take 1 tablet (500 mg total) by mouth daily. 90 tablet 3 0 Active cloNIDine HCL (CATAPRES) 0.1 MG tablet TAKE 1/2 TABLET BY MOUTH TWICE A DAY FOR 90 DAYS 3 Active TRULICITY 0.75 mg/0.5 mL subcutaneous injection INJECT CONTENTS OF 1 PEN UNDER SKIN EVERY WEEK 3 Active metoprolol succinate (TOPROL-XL) 25 MG 24 hr tablet TAKE 1&1/2 TABLET BY MOUTH DAILY 2 Active omeprazole (PRILOSEC) 20 MG capsule Take 1 tablet by mouth daily. 2 Active losartan (COZAAR) 50 MG tablet Take 1 tablet by mouth 2 (two) times a day. 3 Active metoprolol succinate (TOPROL-XL) 50 MG 24 hr tablet 50 mg. 4 Active levothyroxine (SYNTHROID) 125 MCG tablet Take 1 tablet (125 mcg total) by mouth every morning. on an empty stomach 90 tablet 3 4 Active Active Problems Problem Noted Date Diagnosed Date History of thyroid cancer 01/25/2024 Overview (01/25/2024): Left 1.8 cm papillary thyroid cancer, fully encapsulated. Total thyroidectomy 2004. No RAIA because of negative total body scan and unmeasurable thyroglobulin postoperatively. TG and TG AB undetectable. Postoperative hypothyroidism 01/25/2024 Overview (01/25/2024): Total thyroidectomy [address] Chávez Rectocele 03/26/2019 Overview (03/26/2019): 2019 currently asymptomatic. Assessment & Plan (03/26/2019 10:52 AM EST): Currently asymptomatic. Finding discussed with patient. Hypertension 03/13/2018 Genital herpes Assessment & Plan (03/26/2019 10:51 AM EST): Continue on daily valacyclovir 500 mg. Patient has refills in place. May call for refills when needed. Family History Medical History Relation Comments Ovarian cancer Maternal Aunt Pancreatic cancer Maternal Aunt Prostate cancer Maternal Grandfather Kidney cancer Sister Relation Status Comments Father Maternal Aunt Maternal Grandfather Mother Sister Son Alive Social History Tobacco Use Types Packs/Day Years Used Date Smoking Tobacco: Never Smokeless Tobacco: Never Alcohol Use Standard Drinks/Week Comments No 0 (1 standard drink = 0.6 oz pur e alcohol) Education Answer Date Recorded Are you interested in more education? Not on karson e 08/27/2022 Are you concerned about learning? Not on file 08/27/2022 No 08/27/2022 No 08/27/2022 Digital Access Answer Date Recorded No 09/25/2022 No 09/25/2022 Reliable internet access at home? Not on file 09/25/2022 Device with a working camera? 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 Not on file Not on file Last Filed Vital Signs Vital Sign Reading Time Taken Comments Blood Pressure 143/106 10/05/2022 5:03 PM EDT Pulse 68 01/25/2024 9:39 AM EDT Temperature 36.5 C (97.7 F) 10/05/2022 5:03 PM EDT Respiratory Rate 18 10/05/2022 5:03 PM EDT Oxygen Saturation 96% 01/25/2024 9:39 AM EDT Inhaled Oxygen Concentration - - Weight 95.7 kg (211 lb) 01/25/2024 9:39 AM EDT Height 155.6 cm (5' 1.25 ) 01/25/2024 9:39 AM ED T Body Mass Index 39.54 01/25/2024 9:39 AM EDT Plan of Treatment Upcoming Encounters Date Type Department Care Team (Late st Contact Info) Description 01/29/2025 8:20 AM EDT Office Visit [facility] [address] [place] [address] [place] [address] Nicole Gerardo MD [address] [place] [phone] [email or web address] Health Maintenance Due Date Last Done Comments CREATININE LEVEL 1952 LIPID PANEL 1952 POTASSIUM LEVEL 1952 DEPRESSION SCREENING 1964 HEPATITIS C SCREENING 1970 COLOGUARD 1997 COLONOSCOPY 1997 COLORECTAL CANCER SCREENING 1997 FIT TEST 1997 FOBT 1997 SIGMOIDOSCOPY 1997 VIRTUAL COLONOSCOPY 1997 ZOSTER VACCINES (1 of 2) 2002 OSTEOPOROSIS SCREENING INITIAL (ONE-TIME) 2017 PNEUMOCOCCAL VACCINES (50+ years) (2 of 2 - PCV) 10/17/2018 10/17/2017, 11/12/2015 MAMMOGRAM 01/08/2021 01/08/2019, 07/09/2015 COVID-19 VACCINE ( season) 2024 04/01/2022, 02/19/2021, 08/17/2020, Additional history exists BLOOD PRESSURE 07/24/2024 01/25/2024 TSH LEVEL 01/24/2025 01/25/2024 Adult Td,Tdap Booster 03/23/2027 03/23/2017 RSV VACCINE (1 - 1-dose 75+ series) 09/03/2027 SMOKING STATUS SCREENING (Once After 26 Yrs) Completed 10/05/2022 HEPATITIS A VACCINES Aged Out No long er eligible based on patient's age to complete this topic HIB VACCINES Aged Out No longer eligi ble based on patient's age to complete this topic MENINGOCOCCAL VACCINES (ACWY) Aged Out No longer eligible based on patient's age to complete this topic MENINGOCOCCAL VACCINES (B) Aged Out N o longer eligible based on patient's age to complete this topic Medical Devices Not on file Procedures Procedure Name Priority Date/Time Associated Diagnosis Comments TSH WITH REFLEX Routine 01/25/2024 10:14 AM EDT Postoperative hypothyroidism MAMMOGRAPHY Routine 01/08/2019 from Last 3 Months or Most Recently Relevant to Health Maintenance Results * TSH with reflex (01/25/2024 10:14 AM EDT) TSH 1.87 0.27 - 4.20 uIU/mL [facility] Blood 01/25/2024 10:1 4 AM EDT 01/25/2024 10:15 AM EDT us Nicole Gerardo MD LAB BLOOD ORDERABLES Final Res ult [facility] [address] [place] [address] * MAMMOGRAPHY FOR RESULT ENTRY ONLY (01/08/2019) Karen Mckenzie MD HEALTH MAINTENANCE F inal Result from Last 3 Months or Most Recently Relevant to Health Maintenance [facility] E[facility] O POS EPO O POS EPO Care Teams Analytical Manager Relationship Specialty Start Date End Date Vince Benavidez MD [address] [place] [address] PCP - General Family Medicine 10/05/22 Additional Source Comments The information contained in this document represents components of the legal health record. It is not the complete legal health record.Formerly [facility]
--- OUTSIDE RECORDS SUMMARY | 2024-11-23 12:57 | XMS_ITS | Clinical Summary ---
Author Organization [facility] Address [address] [place] [address] Phone Care Team Providers Care Passenger Interline Clerk Name Role Phone Vince Benavidez MD Primary Care Provider Encounters Date Type Department Care Team Description 10/01/2024 7:19 AM EDT - 10/01/2024 11:59 PM EDT Hospital Encounter [facility] at [address] [phone] Encounter for screening mammogram for breast cancer Discharge Disposition: Home or Self Care from Last 3 Months Surgical History Surgery Date Site/Laterality Comments COLONOSCOPY 05/17/2014 PROCEDURE: HISTORICAL COLONOSCOPY; COMMENT: tubular adenoma UPPER GASTROINTESTINAL ENDOSCOPY 05/17/2014 PROCEDURE: UPPER GI ENDOSCOPY/EXAM APPENDECTOMY 1958 PROCEDURE: PA APPENDECTOMY TONSILLECTOMY 1962 PROCEDURE: HISTORICAL TONSILLECTOMY OTHER SURGICAL HISTORY 2003 PROCEDURE: PA THYROIDECTOMY TOTAL/COMPLETE; COMMENT: total thyroidectomy CARPAL TUNNEL RELEASE 1998 and 2004 PROCEDURE: PA NEUROPLASTY &/TRANSPOS MEDIAN NRV CARPAL TUNNE OTHER [...] BLADDER SUSPENSION 1994 PROCEDURE: HISTORICAL BLADDER SUSPENSION STEREOTACTIC CORE BIOPSY Medical History Medical History Date Comments Hypertension [...] DX:Diabetes mellitus type 2 with neurological manifestations ([facility]); COMMENT: Parasthesias of the feet bilaterally Urinary incontinence 12/04/2016 DX:Urinary incontinence; COMMENT: Secondary to rectal and vaginal prolapase. 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 DX:Art hritis of lumbar spine; COMMENT: Xray 04/04/2017 Diverticulitis 05/24/2017 DX:Diverticuliti s; COMMENT: 05/22/2017 [facility] Hypothyroidism 12/04/2016 DX:Hypothyroidis m; COMMENT: Follows with endocrinology Obesity (BMI 30-39.9) 10/17/2017 DX:Obesity (BMI 30-39.9) Tubular adenoma 12/04/2016 DX:Tubular adeno ma; COMMENT: Last colonoscopy 11/2017/ repeat every 5 years BRCA1 gene mutation negative BRCA2 gene mutation negative Family History Medical History Relation Name Comments [...] = 0.6 oz pur e alcohol) Comments No Sex and Gender Information Value Date Recorded Sex Assigned at Not on file Legal Sex Female 2:39 AM EST Gender Identity Not on file Sexual Orientation Not on file Obstetrics History Para Term AB IAB SAB Ectopic Multiple Livin g Live Births 2 Last Filed Vital Signs Vital Sign Reading Time Taken Comments Blood Pressure - - Pulse - - Temperature - - Respiratory Rate - - Oxygen Saturation - - Inhaled Oxygen Concentration - - Weight 96.6 kg (213 lb) 10/01/2024 7:28 AM EDT Height 154.9 cm (5' 1 ) 10/01/2024 7:28 AM EDT Body Mass Index 40.25 10/01/2024 7:28 AM EDT Plan of Treatment Health Maintenance Due Date Last Done Comments Diabetes: Annual GFR (Glomerular Filtration Rate) 1952 Diabetes: Annual Foot Exam 1962 Diabetes: Annual Retina Eye Exam 1962 Zoster Vaccines (1 of 2) 2002 Pneumococcal Vaccine: 50+ Years (2 of 2 - PCV) 10/17/2018 10/17/2017, 11/12/2015 Cholesterol Screening (Lipid Panel) 04/04/2022 Colorectal Cancer Screening: Colonoscopy 04/04/2022 Falls Risk Assessment 04/04/2022 Hepatitis C Screening 04/04/2022 Osteoporosis Screening (Bone Density Screening) 04/04/2022 Social Influencers of Health Screening 04/04/2022 Diabetes: Annual Urine Albumin-Creatinine Ratio (uACR) 04/15/2022 Diabetes: Blood Sugar Control Test (HGBA1C) 04/15/2022 Hypertension/CHF/CAD Annual BMP Blood Test 04/15/2022 Depression Screening 05/02/2024 COVID-19 Vaccine ( season) 2024 02/10/2024, 03/11/2023, 04/01/2022, Additional history exists Influenza Vaccine (#1) 2024 , 03/11/2023, 04/01/2022, Additional history exists Breast Cancer Screening 10/01/2026 10/02/19, 05/19/2022, 09/12/2020, Additional history exists DTaP,Tdap,and Td Vaccines (2 - Td or Tdap) 03/23/2027 03/23/2017 RSV Immunization Adult Patients Completed 02/10/2024 HIB Vaccines Aged Out No longer eligi [...] Procedure Name Priority Date/Time Associated Diagnosis Comments MG MAMMO DIGITAL SCREENING W GORDO BILAT Routine 10/01/2024 7:34 AM EDT Encounter for screening mammogram for breast cancer from Last 3 Months Results * MG Mammo Digital Screening w Gordo bilat (10/01/2024 7:34 AM EDT) Anatomical Region Laterality Modality Breast Bilateral Mammography 10/01/2024 9:18 AM EDT Impressions 10/01/2024 9:27 AM EDT No mammographic evidence of malignancy. No suspicious interval change. A negative mammogram in the presence of a clinically suspicious palpable abnormality does not preclude the possibility of malignancy or alter the indications for biopsy. ASSESSMENT: BI-RADS 2: BENIGN RECOMMENDATION(S): 1: Routine screening mammogram BILATERAL in 1 year. [facility] location[facility] at [address], [id number] -------- FINAL REPORT -------- Dictated By: Reed Barber Dictated Date: 10/01/2024 09:18 ET Assigned Physician: Reed Barber Reviewed and Electronically Signed By: Reed Barber Signed Date: 10/01/2024 09:27 ET Workstation ID: [id number] Transcribed By: Self Edit Transcribed Date: 10/01/2024 09:18 ET Narrative 10/01/2024 9:27 AM EDT EXAM: SCREENING MAMMOGRAPHY, BILATERAL HISTORY: SCREENING. Family history of breast cancer; sister diagnosed at age 65. COMPARISON: 05/19/22, 09/12/20 TECHNIQUE: Synthesized CC and MLO projections of each breast. Tomosynthesis of each breast in the CC and MLO projections. ADDITIONAL IMAGING: None Computer-aided detection was employed with the [employer] AI 3-D. TISSUE DENSITY: The breasts are heterogeneously dense, which may obscure small masses. (BI-RADS category C) FINDINGS: RIGHT BREAST: No suspicious mass. No suspicious calcification. No distortion. No additional suspicious right breast findings LEFT BREAST: No suspicious mass. No suspicious calcification. No distortion. Unchanged circumscribed oval 1.1 cm mass in the 6 o'clock position 10 cm from the left nipple. Unchanged 1 cm circumscribed oval mass in the medial left breast 5 cm from the nipple. Procedure Note Reed Barber MD - 10/01/2024 EXAM: SCREENING MAMMOGRAPHY, BILATERAL HISTORY: SCREENING. Family history of breast cancer; sister diagnosed atage 65. COMPARISON: 05/19/22, 09/12/20 TECHNIQUE: Synthesized CC and MLO projections of each breast.Tomosynthesis of each breast in the CC and MLO projections. ADDITIONAL IMAGING: None Computer-aided detection was employed with the [employer] AI 3-D. TISSUE DENSITY: The breasts are heterogeneously dense, which may obscuresmall masses. (BI-RADS category C) FINDINGS: RIGHT BREAST: No suspicious mass. No suspicious calcification. No distortion. Noadditional suspicious right breast findings LEFT BREAST: No suspicious mass. No suspicious calcification. No distortion. Unchanged circumscribed oval 1.1 cm mass in the 6 o'clock position 10 cmfrom the left nipple. Unchanged 1 cm circumscribed oval mass in the medial left breast 5 cm fromthe nipple. IMPRESSION: No mammographic evidence of malignancy. No suspicious interval change. A negative mammogram in the presence of a clinically suspicious palpableabnormality does not preclude the possibility of malignancy or alter theindications for biopsy. ASSESSMENT: BI-RADS 2: BENIGN RECOMMENDATION(S): 1: Routine screening mammogram BILATERAL in 1 year. [facility] location[facility] at [address], [id number] -------- FINAL REPORT -------- Dictated By: Reed Barber Dictated Date: 10/01/2024 09:18 ET Assigned Physician: Reed Barber Reviewed and Electronically Signed By: Reed Barber Signed Date: 10/01/2024 09:27 ET Workstation ID: [id number] Transcribed By: Self Edit Transcribed Date: 10/01/2024 09:18 ET us Self Referral Sppl IMG BI PROCEDURES Final Resul t from Last 3 Months Insurance MEDICARE AET Care Teams Passenger Interline Clerk Relationship Specialty Start Date End Date Vince Benavidez MD [address] [place] [address] Dr Kinjal [place] PCP - General Family Medicine 10/01/24
[2024-11-23 13:51] LABS: MANUAL DIFF FLAG NO
[2024-11-23 13:54] LABS: Appearance Urine Cloudy; Glucose Urine UA Negative (Negative); PH 6.0 (5.0-9.0); Specific Gravity - Urine 1.025 (1.005-1.025); UMIC TRIGGER UACC YES
[2024-11-23 14:10] LABS: Hematocrit 34.5 % (37.0-47.0); Hemoglobin 11.4 g/dl (12.0-16.0); Imm Gran Abs Auto 0.05 X10*3/uL (0.00-0.03); Imm Gran Pct Auto 0.6 % (0.0-0.4); Lymphocytes Absolute Auto 2.1 X10*3/uL (1.2-4.9); Mean Corpuscular HGB Conc 33.0 g/dl (31.0-35.0); Mean Corpuscular Hemoglobin 28.4 pg (27.0-33.0); Mean Corpuscular Volume 86.0 fL (80.0-98.0); NRBC Abs Auto 0.000 X10*3/uL (0.0-0.012); NRBC Pct Auto 0.0 /100WBC (0.0-0.2); Platelet Count 244 X10*3/uL (160-400); Red Blood Count 4.01 X10*6/uL (4.20-5.50); White Blood Count 7.8 X10*3/uL (4.8-10.8)
[2024-11-23 14:13] LABS: UACC Culture Trigger YES
[2024-11-23 14:27] LABS: Microalbum/Creatinine Ratio Ur 45.1 ug/mg cr (<30)
[2024-11-23 14:28] LABS: Alanine Aminotransferase 32 U/L (0-31); Albumin Level 4.4 g/dL (3.5-5.0); Alkaline Phosphatase 100 U/L (39-117); Anion Gap 14 (12-20); Aspartate Amino Transferase 32 U/L (5-31); Blood Urea Nitrogen 19 mg/dL (9-16); Calcium 9.0 mg/dL (8.4-10.2); Carbon Dioxide 26 mmol/L (22-29); Chloride 106 mmol/L (96-108); Cholesterol 176 mg/dL (<200); Estimated Glomerular Filt Rate 59; HDL Cholesterol 40 mg/dL (>40); Potassium 3.6 mmol/L (3.3-5.1); Sodium 142 mmol/L (135-145); Total Protein 7.7 g/dL (6.5-8.0); Triglycerides 242 mg/dL (<150)
== END 2024-11-23 12:56 | disposition home or self-care (01) ==
LOC: HO.WFDLDS 12:55
PROVIDERS: Visit Provider Family Medicine
DX: Z00.00 Encounter for general adult medical examination without abnormal findings (principal); I10 Essential (primary) hypertension
CPT/HCPCS: 36415; 80053; 80061; 81001; 82043; 82570; 84443; 85025; 87086; 87088; 87147; 87186

== ENCOUNTER 2024-11-29 08:56 | Outpatient (AMB) | payer OTHER, SELFPAY ==
--- OUTSIDE RECORDS SUMMARY | 2024-06-15 05:30 | XMS_ITS ---
Author Organization [facility] Address [address] [place] [address] Care Team Providers Care Director Of Casework Name Role Phone Reema CASAS, Vince Primary Care Provider Jahaira Gross Unavailable [phone] Baltazar Verde Unavailable [phone] REASON FOR VISIT Seen Sooner Encounters Encounter Location Date Provider Diagnosis [facility] [address] [place] [address] 06/15/2024 Baltazar Verde Plan Of Treatment No Information Progress Notes * Inga FLORESDOB: [birth year] (74 yo F)Acc No.[id number]:06/15/2024 Progress Notes Patient: Jaylen SYLVESTER Inga iHggins Provider: Bassam Verde DPM :1950 A ge:73 Y S ex:Female Date:06/15/2024 Address:[address] [place], [place] [id number] Pcp:Vince Benavidez MD Subjective: * Chief Complaints: [...] 06/15/2024 Generated for Printi ng/Famichoacanog/eTransmitting on: 0 11/29/2024 09:17 AM EDT
--- NOTE | 2024-11-29 09:12 | MHC.PC.OV ---
Vital Signs 11/29/24 09:26 Height 5 ft 1 in Weight 207 lb BMI 39.1 BP 110/70 Blood Pressure Location Rt brachial Position Sitting Respiration 14 Pulse 64 Pulse Source Pulse Oximeter Temp 97.8 F Temp Source Oral Pulse Oximetry (%) 97 Oxygen Delivery Method Room Air Intake Visit Reasons: CPE with f/u labs and health maint Intake Note: patient is scheduled for cpe Artistic Director Required: No Allergies erythromycin base Allergy (Unknown, Verified 11/29/24 09:13) unknown meperidine (From Demerol) Allergy (Unknown, Verified 11/29/24 09:13) Unknown morphine Allergy (Unknown, Verified 11/29/24 09:13) unknown Sulfa (Sulfonamide Antibiotics) Allergy (Unknown, Verified 11/29/24 09:13) unknown Medication List - Last Reconciled 11/29/24 by Vince Benavidez MD atorvastatin 40 mg PO DAILY 90 days blood sugar diagnostic (FreeStyle Lite Strips) DX: E11.9, test blood sugar once a day, 90 days blood-glucose meter (FreeStyle Lite Meter kit) DX: E11.9, test blood sugar once a day. 999days clonidine HCl 0.05 mg (1/2 x 0.1 mg) PO BID 90 days dulaglutide (Trulicity) 0.75 mg (0.5 mL) subcut QWEEK hydrochlorothiazide 12.5 mg PO QAM 90 days lancets (FreeStyle Lancets) To test blood sugar once a day As directed, 90 days levothyroxine 125 mcg PO DAILY losartan 100 mg PO DAILY 90 days metformin 500 mg PO DAILY 90 days metoprolol succinate ER 100 mg PO DAILY 90 days mirabegron ER 25 mg PO DAILY 90 days omeprazole 20 mg PO DAILY 90 days valacyclovir 500 mg PO DAILY venlafaxine 75 mg PO DAILY 90 days Tobacco use date assessed: 11/29/24 Fall risk assessment: No Falls in past year Last assessed Fall Risk: 11/29/24 Dental Screening Dental Screen Date: 11/29/24 Did you have a dental visit in the last 12 months?: Yes Did you have a dental problem in the last 6 months where you did not have access to dental care?: No Was dental information given to patient?: Patient has dentist HPI CPE with f/u labs and health maint HPI Details Patient presents for complete physical exam Reviewed labs with patient LDL cholesterol shows good control. Renal function suggests some dehydration. AST and ALT slightly elevated and also consistent with mild dehydration Patient notes that she does not drink much water while she is working. A1c 6.9% which is slightly increased. Blood pressure appears well controlled today. She is taking all of her medications as prescribed Urinalysis and culture were suggestive of a urinary tract infection. Patient notes symptoms. 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 1. Little interest or pleasure in doing things: not at all 2. Feeling down, depressed, or hopeless: not at all 3. Trouble falling or staying asleep, or sleeping too much: nearly every day 4. Feeling tired or having little energy: nearly every day 5. Poor appetite or overeating: not at all 6. Feeling bad about yourself - or that you are a failure or have let yourself or your family down: not at all 7. Trouble concentrating on things, such as reading the newspaper or watching television: not at all 8. Moving or speaking so slowly that other people could have noticed. Or the opposite - being so fidgety or restless that you have been moving around a lot more than usual: not at all 9. Thoughts that you would be better off or of hurting yourself in some way: not at all Total score: 6 Depression Screening Interpretation: Positive Depression Screening Follow-up: In treatment Depression Screening Done: Yes 71518 - PHQ-9 Billing: Yes Source: Developed by Drs. Sudeep Reyes, Lacie Dodd, Santana Hodges and colleagues, with an educational faustino from [employer]. Thrive Questionnaire Date Thrive assessed: 11/29/24 I am a: Patient What is your living situation today?: I have a steady place to live Within the past 12 months, did the food you bought not last and you didn't have the money to get more?: Never true Within the past 12 months, did you worry whether your food would run out before you got money to buy more?: Never true Do you have trouble paying for medicines?: No Do you have trouble getting transportation to medical appointments?: No Do you have trouble paying your heating and electricity bill?: No Do you have trouble taking care of your child, family member or friend?: No Do you have trouble with day-to-day activities such as bathing, preparing meals, shopping, managing finances, etc.?: No Are you currently unemployed and looking for a job?: No Are you interested in more education?: No Please select the resources that you would like help with: None Currently or been in a relationship where the following occur: I choose not to answer THRIVE Score: 0 AUDIT C Alcohol Use Questionnaire (AUDIT-C) 1. How often do you have a drink containing alcohol?: Never Total Score: 0 Score Reviewed/Action Taken: Yes GORAN-7 AMB Questionnaire GORAN-7 Date GORAN - 7 assessed: 11/29/24 Feeling nervous, anxious, or on edge: 0 = Not at all Not being able to stop or control worryin = Nearly every day Worrying too much about different things: 2 = More than half the days Trouble relaxin = More than half the days Being so restless that it is hard to sit still: 0 = Not at all Becoming easily annoyed or irritable: 0 = Not at all Feeling afraid as if something awful might happen: 0 = Not at all Total GORAN-7 score (0-4 normal; 5-9 mild; 10-14 moderate; 15-21 severe): 7 Source: Developed by Drs. Sudeep Reyes, Lacie Dodd, Santana Hodges and colleagues, with an educational faustino from [employer]. GORAN-7 Assessment Billing GORAN-7 Assessment Tool: GORAN-7 Assessment 51840 Review of Systems Const Denies chills, Denies fatigue, Denies fever(s), Denies headache(s) and Denies weakness Eyes Denies change in vision ENT Denies dizziness, Denies headache(s), Denies hearing loss, Denies nasal congestion, Denies sinus pain, Denies sinus pressure and Denies sore throat Card Denies chest pain, Denies lightheadedness, Denies dyspnea and Denies other (palpitations) Resp Denies cough, Denies dyspnea and Denies wheezing GI Denies abdominal pain, Denies melena, Denies hematochezia, Denies change in bowel habits, Denies dyspepsia and Denies nausea Denies hematuria and Denies dysuria Musc Denies abnormal gait, Denies myalgias, Denies arthralgias, Denies numbness and Denies tingling Skin/Breast Denies rash, Denies unusual bruising and Denies wounds Neuro Denies abnormal gait, Denies dizziness, Denies headache(s), Denies memory loss, Denies numbness, Denies Sensory deficit (Neuro), Denies tingling and Denies weakness Psych Reports anxiety, Reports depression and Denies memory loss Endo Denies cold intolerance, Denies fatigue, Denies heat intolerance, Denies polydipsia and Denies polyuria Devaughn/Lymph Denies easy bleeding and Denies easy bruising Aller/Immun Denies wheezing Physical exam (Primary Care) Vital Signs: Last Vital Signs Temp 97.8 F 11/29/24 09:26 Pulse 64 11/29/24 09:26 Resp 14 11/29/24 09:26 BP 110/70 11/29/24 09:26 Pulse Ox 97 11/29/24 09:26 Oxygen Delivery Method Room Air 11/29/24 09:26 BMI result Body Mass Index 39.1 Tobacco/Smoking Status: Tobacco use Status Tobacco use date assessed 11/29/24 11/29/24 09:25 Patient Tobacco Use Status Never used Tobacco 11/29/24 09:15 e-Cigarette/Vaping Use Never Used 11/29/24 09:15 PHQ-9: PHQ-9 Score PHQ-9: Total score 6 11/29/24 09:57 Depression Screening Interpretation: Positive Depression Screening Follow-up: In treatment Thrive Assessment: Date of Thrive Assessment Date Thrive assessed 11/29/24 11/29/24 09:29 Currently or been in a relationship where the following occur: I choose not to answer Const General: no acute distress, well developed, alert and awake Nutritional Appearance: well nourished Orientation/consciousness: patient oriented x3 [facility] Head: Yes normocephalic and Yes atraumatic Ears: hearing grossly normal bilaterally and TM's normal bilaterally General nose exam: Normal external nose present and Normal nares present Mouth: Normal oral and palatal mucosa present and moist mucous membranes Teeth and gingiva: dentition normal Throat: Yes posterior oropharynx normal Eyes General: appearance normal, both eyes and all related structures Pupils: Equal, round and reactive pupils present and Pupil accommodation reflex normal EOM: EOMs intact bilaterally Neck Neck: Yes normal visual inspection, Yes no lymphadenopathy and Yes trachea midline Thyroid: Thyroid normal Carotids: no bruits Lymphatic: no lymphadenopathy noted Chest Chest palpation & inspection: normal inspection of the chest Resp Effort & Inspection: normal respiratory effort Auscultation: clear to auscultation bilaterally Cardio Rate: regular rate Rhythm: regular rhythm Heart sounds: S1 normal heart sound present, S2 normal heart sound present, no gallops, no murmurs and no rubs Bruits: no abdominal aortic bruits and no carotid bruits GI Palpation (GI): No Abdominal aortic bruit present, Soft to palpation, nontender, No hepatosplenomegaly present and No Rebound tenderness present Auscultation: normal bowel sounds General: Yes no CVA tenderness Back/Spine/Pelvis Back: no CVA tenderness Cervical Spine: cervical ROM normal and No Cervical spine tenderness Thoracic/Lumbar Spine: thoraco-lumbar ROM normal, No pain with thoraco-lumbar ROM, No thoracic spinal tenderness and No lumbar spinal tenderness Skin Lesions: no lesions Rashes: no rashes Trauma: no lacerations or abrasions Wounds: no wounds Nails: normal Neuro General: patient oriented x3, gait normal and CN's II-XI intact bilaterally Cranial nerves: Yes Equal, round and reactive pupils present Cognition (Neuro): normal cognition Gait exam (Neuro): Normal gait present Motor exam (neuro): 5/5 motor strength present throughout Sensory Exam: No Sensory deficit (Neuro) Deep tendon reflexes (DTR's): Right patellar reflex intensity grade: 2+ and Left patellar reflex intensity grade: 2+ Extrem General: Yes normal to inspection and No edema Psych Appearance: grossly normal Affect: normal affect Attitude: cooperative Thought process: Normal thought process present Coding Level of Care Code Est Pt Level 3 (23552) Est Pt Prev Care >65y(78029) Diagnoses Adult general medical exam Z00.00 Essential hypertension I10 Hyperlipidemia E78.5 Diabetes mellitus E11.9 Hypothyroidism E03.9 Anxiety and depression F41.9; F32.A Screening for colon cancer Z12.11 Breast cancer screening by mammogram Z12.31 Primary osteoarthritis of left knee M17.12 Osteoarthritis type: primary Additional Codes GORAN-7 Assessment Billing - GORAN-7 Assessment Tool: GORAN-7 Assessment 49129 ([id number]) PHQ-9 - 42116 - PHQ-9 Billing: Yes ([id number]) Assessment & Plan Assessment & Plan (1) Adult general medical exam: Code(s): Z00.00 - Encounter for general adult medical examination without abnormal findings Category: Medical Plan: 74-year-old female presents for CPE (2) Essential hypertension: Code(s): I10 - Essential (primary) hypertension Category: Medical Plan: Blood pressure appears well controlled. Goal is less than 140/90 Continue current medications (3) Hyperlipidemia: Code(s): E78.5 - Hyperlipidemia, unspecified Category: Medical Plan: Lipids are controlled. Continue atorvastatin (4) Diabetes mellitus: Code(s): E11.9 - Type 2 diabetes mellitus without complications Category: Medical Plan: A1c has increased to 6.9%. Still at goal of less than 7.0% Continue current medications Encouraged diet lower in sugars and starches Encouraged exercise-patient notes that she has been having difficulty exercising due to ongoing left knee pain. She can use a brace while exercising but should keep it off otherwise. Recent eye exam. Patient is up-to-date (5) Hypothyroidism: Code(s): E03.9 - Hypothyroidism, unspecified Category: Medical Plan: TSH was within normal range Continue levothyroxine (6) Anxiety and depression: Code(s): F41.9 - Anxiety disorder, unspecified; F32.A - Depression, unspecified Category: Medical Plan: Patient notes some ongoing anxiety depression. She has a therapist and says that this is helping. Still depressed mood due to loss of her partner (7) Screening for colon cancer: Code(s): Z12.11 - Encounter for screening for malignant neoplasm of colon Category: Medical Plan: Patient agrees to Cologuard test Ordered (8) Breast cancer screening by mammogram: Code(s): Z12.31 - Encounter for screening mammogram for malignant neoplasm of breast Category: Medical Plan: Mammogram showed no evidence of malignancy and recommended annual screening Continue annual screening (9) Osteoarthritis of left knee: Code(s): M17.12 - Unilateral primary osteoarthritis, left knee Category: Medical Qualifiers: Osteoarthritis type: primary Qualified Code(s): M17.12 - Unilateral primary osteoarthritis, left knee Plan: Ongoing left knee pain Continue following with [facility] as recommended (10) Anxiety and depression: Code(s): F41.9 - Anxiety disorder, unspecified; F32.A - Depression, unspecified Category: Medical Plan: Ongoing anxiety and depression Follow-up with therapist (11) Essential hypertension: Code(s): I10 - Essential (primary) hypertension Category: Medical (12) Hyperlipidemia: Code(s): E78.5 - Hyperlipidemia, unspecified Category: Medical (13) Diabetes mellitus: Code(s): E11.9 - Type 2 diabetes mellitus without complications Category: Medical (14) Breast cancer screening by mammogram: Code(s): Z12.31 - Encounter for screening mammogram for malignant neoplasm of breast Category: Medical (15) Screening for colon cancer: Code(s): Z12.11 - Encounter for screening for malignant neoplasm of colon Category: Medical Plan She will return in 3 months to follow-up hypertension and diabetes. Orders: Referrals Cologuard Test Z12.11 - Encounter for screening for malignant neoplasm of colon, Z12.12 - Encounter for screening for malignant neoplasm of rectum Medications: New cephalexin 500 mg PO Q12H 14 tabs 0RF 7 days
--- OUTSIDE RECORDS SUMMARY | 2024-11-29 09:17 | XMS_ITS | Clinical Summary ---
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 Name Role Phone Vince Benavidez MD Primary Care Provider Encounters Date Type Department Care Team Description 10/01/2024 7:19 AM EDT - 10/01/2024 11:59 PM EDT Hospital Encounter [facility] at [address] [phone] Encounter for screening mammogram for breast cancer Discharge Disposition: Home or Self Care from Last 3 Months Surgical History Surgery Date Site/Laterality Comments COLONOSCOPY 05/17/2014 PROCEDURE: HISTORICAL COLONOSCOPY; COMMENT: tubular adenoma UPPER GASTROINTESTINAL ENDOSCOPY 05/17/2014 PROCEDURE: UPPER GI ENDOSCOPY/EXAM APPENDECTOMY 1958 PROCEDURE: IL APPENDECTOMY TONSILLECTOMY 1962 PROCEDURE: HISTORICAL TONSILLECTOMY OTHER SURGICAL HISTORY 2003 PROCEDURE: IL THYROIDECTOMY TOTAL/COMPLETE; COMMENT: total thyroidectomy CARPAL TUNNEL RELEASE 1998 and 2004 PROCEDURE: [place] NEUROPLASTY &/TRANSPOS MEDIAN NRV CARPAL TUNNE OTHER [...] DX:Diabetes mellitus type 2 with neurological manifestations ([facility]); COMMENT: Parasthesias of the feet bilaterally Urinary incontinence 12/04/2016 DX:Urinary incontinence; COMMENT: Secondary to rectal and vaginal prolapase. 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 Mammography location: [facility] at [address], [address] -------- FINAL REPORT -------- Dictated By: Reed Barber Dictated Date: 10/01/2024 09:18 ET Assigned Physician: Reed Barber Reviewed and Electronically Signed By: Reed Barber Signed Date: 10/01/2024 09:27 ET Workstation ID: [id number] Transcribed By: Self Edit Transcribed Date: 10/01/2024 09:18 ET Narrative 10/01/2024 9:27 AM EDT EXAM: SCREENING MAMMOGRAPHY, BILATERAL HISTORY: SCREENING. Family history of breast cancer; sister diagnosed at age 65. COMPARISON: 05/19/22, 09/12/20 TECHNIQUE: Synthesized CC and MLO projections of each breast. Tomosynthesis of each breast in the CC and MLO projections. 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 TISSUE DENSITY: The breasts are [...] None Computer-aided detection was employed with the [employer] AI 3-D. TISSUE DENSITY: The breasts are [...] year. [facility]amm[facility] location[facility] at [address], [address] -------- FINAL REPORT -------- Dictated By: Reed Barber Dictated Date: 10/01/2024 09:18 ET Assigned Physician: Reed Barber Reviewed and Electronically Signed By: Reed Barber Signed Date: 10/01/2024 09:27 ET Workstation ID: [id number] Transcribed By: Self Edit Transcribed Date: 10/01/2024 09:18 ET us Self Referral Sppl IMG BI PROCEDURES Final Resul t from Last 3 Months Insurance MEDICARE AET Care Teams Asphalt Heater Operator Relationship Specialty Start Date End Date Vince Benavidez MD [address] [place] [address] Dr Kinjal [place] PCP - General Family Medicine 10/01/24
--- OUTSIDE RECORDS SUMMARY | 2024-11-29 09:18 | XMS_ITS | Clinical Summary ---
Author Organization [facility] Address [address] [place] [id number] Phone Care Team Providers Care Cocoa Bean Cleaner Name Role Phone Vince Benavidez MD Primary [...] 8:20 AM EDT Office Visit [facility] [address] [place] [address] [place] [address] Nicole Gerardo MD [address] [place] [id number] [email or web address] Health Maintenance Due Date Last Done Comments [...] EDT) TSH 1.87 0.27 - 4.20 uIU/mL [facility] Blood 01/25/2024 10:1 4 AM EDT 01/25/2024 10:15 AM EDT us Nicole Gerardo MD LAB BLOOD ORDERABLES Final Res ult [facility] [address] [place] [address] * MAMMOGRAPHY FOR RESULT ENTRY ONLY (01/08/2019) Karen Mckenzie MD HEALTH MAINTENANCE F inal Result from Last 3 Months or Most Recently Relevant to Health Maintenance [facility] POS EPO O POS EPO Care Teams Cocoa Bean Cleaner Relationship Specialty Start Date End Date Vince Benavidez MD [address] [place] [address] PCP - General Family Medicine 10/05/22 Additional Source Comments The information contained in this document represents components of the legal health record. It is not the complete legal health record.[facility]
[2024-11-29 09:26] VITALS: BP 110/70; PULSE 64; RESP 14; TEMP 36.6; O2SAT 97; BMI 39.1
== END 2024-11-29 10:40 | disposition home or self-care (01) ==
LOC: HO.HMCFM 08:57
PROVIDERS: PCP Family Medicine; Visit Provider Family Medicine
DX: Z00.00 Encounter for general adult medical examination without abnormal findings (principal); E11.9 Type 2 diabetes mellitus without complications; F41.9 Anxiety disorder, unspecified; F32.A Depression, unspecified; I10 Essential (primary) hypertension; E78.5 Hyperlipidemia, unspecified; Z12.31 Encounter for screening mammogram for malignant neoplasm of breast; Z12.11 Encounter for screening for malignant neoplasm of colon; E03.9 Hypothyroidism, unspecified; M17.12 Unilateral primary osteoarthritis, left knee

== ENCOUNTER → 2024-11-29 08:56 | Outpatient (BNVA) | payer OTHER, SELFPAY | PROVIDERS: PCP Family Medicine; Visit Provider Family Medicine | DX: Z00.00 Encounter for general adult medical examination without abnormal findings (principal); I10 Essential (primary) hypertension; E78.5 Hyperlipidemia, unspecified; E11.9 Type 2 diabetes mellitus without complications; E03.9 Hypothyroidism, unspecified; F41.9 Anxiety disorder, unspecified; F32.A Depression, unspecified; M17.12 Unilateral primary osteoarthritis, left knee | CPT/HCPCS: 96127 ==

== ENCOUNTER 2025-03-07 10:38 | Outpatient (AMB) | payer OTHER, SELFPAY ==
--- OUTSIDE RECORDS SUMMARY | 2024-06-15 04:30 | XMS_ITS ---
Author Organization [facility] Address [address] [place] [address] Care Team Providers Care Inspection Machine Tender Name Role Phone Reema CASAS, Vince Primary Care Provider Jahaira Gross Unavailable [phone] Baltazar Verde Unavailable [phone] REASON FOR VISIT Seen Sooner Encounters Encounter Location Date Provider Diagnosis [facility] [address] [place] [address] 06/15/2024 Baltazar Verde Plan Of Treatment No Information Progress Notes * Inga FLORESDOB: [birth year] (74 yo F)Acc No.[id number]:06/15/2024 Progress Notes Patient: Sudeep MCKEONpretty Higgins Provider: Bassam Verde DPM :1950 A ge:73 Y S ex:Female Date:06/15/2024 Address:[address] [place], [place] [id number] Pcp:Vince Benavidez MD Subjective: * Chief Complaints: * 1 . Seen Sooner. * Medical History: Objective: * Vitals: Assessment: Plan: * Treatment: * Images: * The named appointment provid er may or may not be the originator of this progress note, and it is not deemed complete until electronically signed by the appointment provider. Sign off status: Pending * Provider: Bassam Verde DPM Date: 0 06/15/2024 Generated for Printi ng/Famichoacanog/eTransmitting on: 1 05/07/2024 12:44 PM EST
--- NOTE | 2025-03-07 10:43 | A.OFFPC_ITS ---
Vital Signs 03/07/25 10:52 Height 5 ft 1 in Weight 209 lb BMI 39.5 BP 141/63 H Blood Pressure Location Rt brachial Position Sitting Respiration 16 Pulse 63 Pulse Source Pulse Oximeter Temp 98.0 F Temp Source Oral Pulse Oximetry (%) 99 Oxygen Delivery Method Room Air Intake Visit Reasons: f/u HTN, diabetes Intake Note: patient here for follow up on HTN and DM Technician Plant And Maintenance Required: No Is last menstrual period known: No Post menopausal: No Patient : No Allergies erythromycin base Allergy (Unknown, Verified 03/07/25 10:51) unknown meperidine (From Demerol) Allergy (Unknown, Verified 03/07/25 10:51) Unknown morphine Allergy (Unknown, Verified 03/07/25 10:51) unknown Sulfa (Sulfonamide Antibiotics) Allergy (Unknown, Verified 03/07/25 10:51) unknown Medication List - Last Reconciled 03/07/25 by Vince Benavidez MD atorvastatin 40 mg PO DAILY 90 days blood sugar diagnostic (FreeStyle Lite Strips) DX: E11.9, test blood sugar once a day, 90 days blood-glucose meter (FreeStyle Lite Meter kit) DX: E11.9, test blood sugar once a day. 999days cephalexin 500 mg PO Q12H 7 days clonidine HCl 0.05 mg (1/2 x 0.1 mg) PO BID 90 days dulaglutide (Trulicity) 0.75 mg (0.5 mL) subcut QWEEK hydrochlorothiazide 12.5 mg PO QAM 90 days lancets (FreeStyle Lancets) To test blood sugar once a day As directed, 90 days levothyroxine 125 mcg PO DAILY losartan 100 mg PO DAILY 90 days metformin 500 mg PO DAILY 90 days metoprolol succinate ER 100 mg PO DAILY 90 days mirabegron ER 25 mg PO DAILY 90 days omeprazole 20 mg PO DAILY 90 days valacyclovir 500 mg PO DAILY venlafaxine 75 mg PO DAILY 90 days Tobacco use date assessed: 03/07/25 Fall risk assessment: No Falls in past year Last assessed Fall Risk: 03/07/25 Dental Screening Dental Screen Date: 03/07/25 Did you have a dental visit in the last 12 months?: Yes Did you have a dental problem in the last 6 months where you did not have access to dental care?: No Was dental information given to patient?: Patient has dentist HPI f/u HTN, diabetes HPI Details 74 y/o female presents to f/u LAVONNE diabpeyton sandra. Last A1c 11/29/24 6.9%. She is on Trulicity, metformin 500mg daily. A1c today 6.9%. BP today 141/63, 63p. She is on losartan 100mg, metoprolol 100mg daily. Pt notes stressors. Liver enzymes had been mildly elevated in October. 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 Current occupational exposures/hazards: No Cognitive needs: No Hearing needs: No Vision needs: Yes Questionnaire Thrive Questionnaire Date Thrive assessed: 05/14/24 I am a: Patient What is your living situation today?: I have a steady place to live Within the past 12 months, did the food you bought not last and you didn't have the money to get more?: Never true Within the past 12 months, did you worry whether your food would run out before you got money to buy more?: Never true Do you have trouble paying for medicines?: No Do you have trouble getting transportation to medical appointments?: No Do you have trouble paying your heating and electricity bill?: No Do you have trouble taking care of your child, family member or friend?: No Do you have trouble with day-to-day activities such as bathing, preparing meals, shopping, managing finances, etc.?: No Are you currently unemployed and looking for a job?: No Are you interested in more education?: No Please select the resources that you would like help with: None Currently or been in a relationship where the following occur: I choose not to answer THRIVE Score: 0 GORAN-7 AMB Questionnaire GORAN-7 Date GORAN - 7 assessed: 11/29/24 Source: Developed by Drs. Sudeep LLacie Posadas, Santana Hodges and colleagues, with an educational faustino from [employer]. Physical exam (Primary Care) Vital Signs: Last Vital Signs Temp 98.0 F 03/07/25 10:52 Pulse 63 03/07/25 10:52 Resp 16 03/07/25 10:52 BP 141/63 H 03/07/25 10:52 Pulse Ox 99 03/07/25 10:52 Oxygen Delivery Method Room Air 03/07/25 10:52 BMI result Body Mass Index 39.5 Tobacco/Smoking Status: Tobacco use Status Tobacco use date assessed 03/07/25 03/07/25 10:56 Patient Tobacco Use Status Never used Tobacco 03/07/25 10:43 e-Cigarette/Vaping Use Never Used 03/07/25 10:43 Thrive Assessment: Date of Thrive Assessment Date Thrive assessed 05/14/24 03/07/25 10:43 Currently or been in a relationship where the following occur: I choose not to answer Results AMB Hemoglobin A1c AMB Hemoglobin A1c 6.9 % Last Edit by MILES Gardiner on 03/07/25 11:18 Results Reviewed Results Reviewed: Laboratory Last Values Hgb A1c (Clinic) 6.9 % (4.0-6.0) H 03/07/25 11:16 Coding Level of Care Code Est Pt Level 4 (46333) Diagnoses Essential hypertension I10 Diabetes mellitus E11.9 Elevated liver enzymes R74.8 Immunization counseling Z71.85 Assessment & Plan Assessment & Plan (1) Essential hypertension: Code(s): I10 - Essential (primary) hypertension Category: Medical Plan: Blood pressure is elevated today. Goal is less than 140/90 Patient notes that she is stressed as friend of hers recently No changes to current medication regimen Will continue to follow and she has a way to check blood pressures at home. She will let me know if blood pressures are elevated at home. If still elevated at next visit, we discussed adjusting medication. (2) Diabetes mellitus: Code(s): E11.9 - Type 2 diabetes mellitus without complications Category: Medical Plan: A1c 6.9%. Goal is less than 7% Continue current medications She notes that she had an appointment with her eye doctor recently. She will have them forward office visit note. (3) Elevated liver enzymes: Code(s): R74.8 - Abnormal levels of other serum enzymes Category: Medical Plan: Mildly elevated liver enzymes at prior lab measurement Will repeat this prior to next visit and review with patient (4) Immunization counseling: Code(s): Z71.85 - Encounter for immunization safety counseling Category: Medical Plan: Patient is due for pneumonia shot as well as flu shot. Recommended high-dose flu shot which she will get it pharmacy Recommended COVID shot She is up-to-date with RSV Orders: Orders AMB Hemoglobin A1c Today E11.9 - Type 2 diabetes mellitus without complications, Z13.9 - Encounter for screening, unspecified Comprehensive [place]. Panel Fast Today R74.8 - Abnormal levels of other serum enzymes, Z00.00 - Encounter for general adult medical examination without abnormal findings Thyroid Stimulating Hormone Today E03.9 - Hypothyroidism, unspecified Triiodothyronine T3 Total Today E03.9 - Hypothyroidism, unspecified Microalbumin, Random (w Creat) Today I10 - Essential (primary) hypertension UA CC w/rflx Micro + Cult Today I10 - Essential (primary) hypertension, Z00.00 - Encounter for general adult medical examination without abnormal findings Free T4 (Free Thyroxine) Today E03.9 - Hypothyroidism, unspecified
[2025-03-07 10:52] VITALS: BP 141/63; PULSE 63; RESP 16; TEMP 36.7; O2SAT 99; BMI 39.5
--- OUTSIDE RECORDS SUMMARY | 2025-03-07 12:45 | XMS_ITS | Clinical Summary ---
Author Organization [facility] Address [address] [place] [address] Phone Care Team Providers Care Remarketing Rep Name Role Phone Vince Benavidez MD Primary [...] hr tablet 50 mg. 4 Active levothyroxine (SYNTHROID, LEVOTHROID) 125 MCG tablet TAKE 1 TABLET (125 MCG TOTAL) BY MOUTH EVERY MORNING. 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 Total thyroidectomy 2003. No RAIA because of negative total body scan and unmeasurable thyroglobulin postoperatively. TG and TG AB undetectable. Assessment & Plan (01/29/2025 8:53 AM EDT): History of left 1.8 cm papillary thyroid cancer, fully encapsulated. She had total thyroidectomy in 2003. No radioactive iodine ablation because of negative total body scan and unmeasurable thyroglobulin level postoperatively. Thyroglobulin and thyroglobulin antibody had been undetectable, last tested a year ago. -Continue to monitor tumor markers. Postoperative hypothyroidism 01/25/2024 Overview (01/25/2024): Total thyroidectomy [address] Chávez Assessment & Plan (01/29/2025 8:52 AM EDT): Clinically euthyroid. TSH a year ago was at target on 125 mcg levothyroxine daily, taking it appropriately. -Patient will return within a week to have labs. Will review results through patient portal. -Follow-up in 1 year Rectocele 03/26/2019 Overview (03/26/2019): 2019 currently asymptomatic. Assessment & Plan (03/26/2019 10:52 AM EST): Currently asymptomatic. Finding discussed with patient. Hypertension 03/13/2018 Genital herpes Assessment & Plan (03/26/2019 10:51 AM EST): Continue on daily valacyclovir 500 mg. Patient has refills in place. May call for refills when needed. Encounters Date Type Department Care Team Description 02/08/2025 10:26 AM EDT - 02/08/2025 11:59 PM EDT Hospital Encounter [facility] [address] [address] Nicole Gerardo MD Discharge Disposition: Home or Self Care 01/29/2025 8:20 AM EDT Office Visit [facility] [address] [place] [address] Nicole Gerardo MD Postoperative hypothyroidism (Primary Dx); History of thyroid cancer 12/11/2024 Refill [facility] [address] [place] [address] Nicole Gerardo MD Medication Refill from Last 3 Months Family History Medical History Relation Comments Ovarian [...] Sign Reading Time Taken Comments Blood Pressure 124/78 01/29/2025 8:07 AM EDT Pulse 68 01/29/2025 8:07 AM EDT Temperature 36.5 C (97.7 F) 10/05/2022 5:03 PM EDT Respiratory Rate 18 10/05/2022 5:03 PM EDT Oxygen Saturation 97% 01/29/2025 8:07 AM EDT Inhaled Oxygen Concentration - - Weight 94.1 kg (207 lb 6.4 oz) 01/29/2025 8:07 A M EDT Height 155.6 cm (5' 1.26 ) 01/29/2025 8:07 AM ED T Body Mass Index 38.86 01/29/2025 8:07 AM EDT Plan of Treatment Upcoming Encounters Date Type Department Care Team (Late st Contact Info) Description 01/29/2026 8:20 AM EDT Office Visit [facility] [address] [place] [address] Nicole Gerardo MD [address] [place] [address] Health Maintenance Due Date Last Done Comments [...] of 2 - PCV) 10/17/2018 10/17/2017, 11/12/2015 INFLUENZA VACCINE (#1) 2024 , 02/04/2021, 02/04/2021, Additional history exists COVID-19 VACCINE ( season) 2024 04/01/2022, 02/19/2021, 08/17/2020, Additional history exists BLOOD PRESSURE 07/29/2025 01/29/2025 TSH LEVEL 02/08/2026 02/08/2025, 01/25/2024 MAMMOGRAM 10/01/2026 10/01/2024, 06/0 06/2024, 01/08/2019, Additional history exists Adult Td,Tdap Booster 03/23/2027 03/23/2017 RSV VACCINE (1 - 1-dose 75+ series) 09/03/2027 SMOKING STATUS SCREENING (Once After 26 Yrs) Completed 01/29/2025 HEPATITIS A VACCINES Aged Out No long [...] Procedure Name Priority Date/Time Associated Diagnosis Comments THYROGLOBULIN ANTIBODY Routine 02/08/2025 10:27 AM EDT History of thyroid cancer TSH WITH REFLEX Routine 02/08/2025 10:27 AM EDT Postoperative hypothyroidism THYROGLOBULIN, TUMOR MARKER Routine 02/08/2025 10:27 AM EDT History of thyroid cancer HM MAMMOGRAPHY Routine 01/08/2019 from Last 3 Months or Most Recently Relevant to Health Maintenance Results * Thyroglobulin antibody (02/08/2025 10:27 AM EDT) THYROGLOBULIN ANTIBODY, S <1.8 <4.0 IU/mL [facility] Comment: (NOTE) ADDITIONAL INFORMATION PLEASE NOTE: The given thyroglobulin antibody (TgAb) reference cutoff of <4.0 IU/mL is for the evaluation of autoimmune thyroiditis. A cutoff of <1.8 IU/mL may be more suitable for the detection of potential thyroglobulin antibody (TgAb) interference in thyroglobulin immunoassays. The thyroglobulin antibody testing method is an immunoenzymatic assay manufactured by [employer] and performed on the [employer] DXI 800. Values obtained from different assay methods or kits may be different and cannot be used interchangeably. The results cannot be interpreted as absolute evidence for the presence or absence of malignant disease. Blood 02/08/2025 10:2 7 AM EDT 02/08/2025 10:29 AM EDT Nicole Gerardo MD LAB BLOOD ORDERABLES Final Res ult Performing Organization Address City/[facility]/ZIP Co de Phone Number [facility] [address] [place] [address] * TSH with reflex (02/08/2025 10:27 AM EDT) TSH 0.75 0.27 - 4.20 uIU/mL [facility] Blood 02/08/2025 10:2 7 AM EDT 02/08/2025 10:29 AM EDT Nicole Gerardo MD LAB BLOOD BKR ORDERABLES Final Result Performing Organization Address [facility] Co de Phone Number [address] [address] * Thyroglobulin, Tumor Marker (02/08/2025 10:27 AM EDT) THYROGLOBULIN <0.1 < or = 33 ng/mL [facility] THYROGLOBULIN AB <1.8 <1.8 IU/mL [facility] THYROGLOBULIN INTRP SEE NOTE [facility] Comment: (NOTE) Thyroglobulin (Tg) reference intervals are for patients with an intact thyroid and not for patients who have had surgery for thyroid cancer. Tg reference intervals in patients that have undergone thyroidectomy or any treatment for follicular thyroid cancer are dependent on the residual mass of the thyroid tissue after surgery. Tg results, regardless of concentration, should not be interpreted as absolute evidence for the presence or absence of papillary or follicular thyroid cancer. This result needs to be interpreted in the context of the clinical evaluation. ADDITIONAL INFORMATION PLEASE NOTE: The given cutoff of <1.8 IU/mL is for the detection of potential thyroglobulin antibody (TgAb) interference in thyroglobulin immunoassays. A thyroglobulin antibody (TgAb) reference cutoff of <4.0 IU/mL may be more suitable for the evaluation of autoimmune thyroiditis. The thyroglobulin and thyroglobulin antibody testing methods are immunoenzymatic assays manufactured by [employer] and performed on the [employer] DXI 800. Values obtained from different assay methods or kits may be different and cannot be used interchangeably. The results cannot be interpreted as absolute evidence for the presence or absence of malignant disease. Blood 02/08/2025 10:2 7 AM EDT 02/08/2025 10:29 AM EDT us Nicole Gerardo MD LAB BLOOD ORDERABLES Final Res ult [facility] [address] [place] [address] * MAMMOGRAPHY FOR RESULT ENTRY ONLY (01/08/2019) Karen Mckenzie MD HEALTH MAINTENANCE F inal Result from Last 3 Months or Most Recently Relevant to Health Maintenance [facility] [employer] POS EPO [employer] POS EPO [employer] POS EPO [employer] POS EPO [employer] O POS EPO [facility] POS EPO A[employer] HMO POS EPO Care Teams Remarketing Rep Relationship Specialty Start Date End Date Vince Benavidez MD PCP - General Family Medicine 10/05/22 Additional Source Comments The information contained in this document represents components of the legal health record. It is not the complete legal health record.[facility]
--- OUTSIDE RECORDS SUMMARY | 2025-03-07 12:45 | XMS_ITS | Clinical Summary ---
Author Organization [facility] Address [address] [place] [address] Phone Care Team Providers Care Flag Football Coach Name Role Phone Vince Benavidez MD Primary Care Provider [phone] Surgical History Surgery Date Site/Laterality Comments COLONOSCOPY 05/17/2014 PROCEDURE: HISTORICAL COLONOSCOPY; COMMENT: tubular adenoma UPPER GASTROINTESTINAL ENDOSCOPY 05/17/2014 PROCEDURE: UPPER GI ENDOSCOPY/EXAM APPENDECTOMY 1958 PROCEDURE: TX APPENDECTOMY TONSILLECTOMY 1962 PROCEDURE: HISTORICAL TONSILLECTOMY OTHER SURGICAL HISTORY 2003 PROCEDURE: TX THYROIDECTOMY TOTAL/COMPLETE; COMMENT: total thyroidectomy CARPAL TUNNEL RELEASE 1998 and 2004 PROCEDURE: [place] NEUROPLASTY &/TRANSPOS MEDIAN NRV CARPAL TUNNE OTHER [...] DX:Diabetes mellitus type 2 with neurological manifestations ([facility]); COMMENT: Parasthesias of the feet bilaterally Urinary incontinence 12/04/2016 DX:Urinary incontinence; COMMENT: Secondary to rectal and vaginal prolapase. 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 DX:Art hritis of lumbar spine; COMMENT: Xray 04/04/2017 Diverticulitis 05/24/2017 DX:Diverticuliti s; COMMENT: 05/22/2017 [facility] Hypothyroidism 12/04/2016 DX:Hypothyroidis m; COMMENT: Follows with [...] Health Maintenance Due Date Last Done Comments Colorectal Cancer Screening: Colonoscopy 1952 Diabetes: Annual GFR (Glomerular Filtration Rate) 1952 Diabetes: Annual Foot Exam 1962 Diabetes: Annual Retina Eye Exam 1962 Zoster Vaccines (1 of 2) 2002 Pneumococcal Vaccine: 50+ Years (2 of 2 - PCV) 10/17/2018 10/17/2017, 11/12/2015 Cholesterol Screening (Lipid Panel) 04/04/2022 Falls Risk Assessment 04/04/2022 Hepatitis C [...] for breast cancer from Last 3 Months or Most Recently Relevant to Health Maintenance Results * MG Mammo Digital Screening w [...] year. [facility]amm[facility] [address], [address] -------- FINAL REPORT -------- Dictated By: Reed Barber Dictated Date: 10/01/2024 09:18 ET Assigned Physician: Reed Barber Reviewed and Electronically Signed By: Reed Barber Signed Date: 10/01/2024 09:27 ET Workstation ID: [id number] Transcribed By: Self Edit Transcribed Date: 10/01/2024 09:18 ET Narrative 10/01/2024 9:27 AM EDT EXAM: SCREENING MAMMOGRAPHY, BILATERAL HISTORY: SCREENING. Family history of breast cancer; sister diagnosed at age 65. COMPARISON: 05/19/22, 09/12/20 TECHNIQUE: Synthesized CC and MLO projections of each breast. Tomosynthesis of each breast in the CC and MLO projections. ADDITIONAL IMAGING: None Computer-aided detection was employed with the [employer] AI 3-D. TISSUE DENSITY: The breasts are [...] None Computer-aided detection was employed with the [employer] AI 3-D. TISSUE DENSITY: The breasts are [...] year. [facility]amm[facility] [address], [address] -------- FINAL REPORT -------- Dictated By: Reed Barber Dictated Date: 10/01/2024 09:18 ET Assigned Physician: Reed Barber Reviewed and Electronically Signed By: Reed Barber Signed Date: 10/01/2024 09:27 ET Workstation ID: [id number] Transcribed By: Self Edit Transcribed Date: 10/01/2024 09:18 ET us Self Referral Sppl IMG BI PROCEDURES Final Resul t from Last 3 Months or Most Recently Relevant to Health Maintenance Insurance MEDICARE AETNA Care Teams Flag Football Coach Relationship Specialty Start Date End Date Vince Benavidez MD [address] [place] [address] Dr Kinjal [place] PCP - General Family Medicine 10/01/24
--- OUTSIDE RECORDS SUMMARY | 2025-03-07 12:45 | XMS_ITS | Patient Health Record ---
Author Organization [facility] Address [address] [facility] [place] [address] Care Team Providers Care Skilled Nursing Case Manager Name Role Phone Vince Benavidez MD Primary Care Provider Jahaira Gross Unavailable [phone] Baltazar Verde Unavailable [phone] Allergies Allergen (clinical drug ingredient) Drug/Non Drug [...] (substance) Sulfa Antibiotics rash Drug Allergy Active Reason For Referral No Information Medications Medication [...] W/U Status Risk Notes Problem Plantar fasciitis (697494279) Plantar fasciitis (M72.2) Active confirmed Resistant to previous conservative treatment Problem Plantar fasciitis of right foot ([id number] 101) Plantar fasciitis of right foot (M72.2) Active confirmed Problem Interstitial myositis (03729929) Interstitial myositis of right foot (M60.171) Active confirmed Vital Signs Blood pressure diastolic 70 mm Hg 05/23/2024 Height 5ft1in in 05/23/2024 Blood pressure systolic 147 mm Hg 05/23/2024 Weight 207 lbs 05/23/2024 BMI 39.11 kg/m2 05/23/2024 Encounters Encounter Location Date Provider Diagnosis [facility] [address] 04/17/2024 Jahaira Perica Pain in right foot M79.671 ; Plantar fasciitis of right foot M72.2 ; Calcaneal spur, right foot M77.31 ; Interstitial myositis of right foot M60.171 and Bursitis of right foot M77.[address] [facility] [address] [address] 05/23/2024 Jahaira Perica Plantar fasciitis of right [...] Date Coverage End Date [employer] [address] [place] [address] [id number] Inga Flores Self - patient is the insured Medical (General) History Medical History History ICD Code Anxiety Back,Hip,and Knee pain Cancer covid-19 Depression Diabetic Diverticulosis High Blood Pressure thyroid Mumps Chicken pox Surgical History Surgery Date(Month/Year) hysterectomy 06/1989 bladder suspension 03/1994 Hernia Repair 12/2012 tonsillectomy 1966 appendectomy 1960
== END 2025-03-07 12:09 | disposition home or self-care (01) ==
LOC: HO.HMCFM 10:39
PROVIDERS: PCP Family Medicine; Visit Provider Family Medicine
DX: I10 Essential (primary) hypertension (principal); E11.9 Type 2 diabetes mellitus without complications; R74.8 Abnormal levels of other serum enzymes; Z71.85 Encounter for immunization safety counseling; Z13.9 Encounter for screening, unspecified

== ENCOUNTER → 2025-03-07 10:38 | Outpatient (BNVA) | payer OTHER, SELFPAY | PROVIDERS: PCP Family Medicine; Visit Provider Family Medicine | DX: E11.9 Type 2 diabetes mellitus without complications (principal); I10 Essential (primary) hypertension; R74.8 Abnormal levels of other serum enzymes; E03.9 Hypothyroidism, unspecified; Z71.85 Encounter for immunization safety counseling; Z79.899 Other long term (current) drug therapy | CPT/HCPCS: 83036 ==

== ENCOUNTER 2025-03-25 08:14 | Outpatient (REF) | payer OTHER, SELFPAY ==
--- OUTSIDE RECORDS SUMMARY | 2024-06-15 04:30 | XMS_ITS ---
Author Organization [facility] Address [address] [place] [address] Care Team Providers Care It Desktop Support Technician Name Role Phone Reema CASAS, Vince Primary Care Provider Jahaira Gross Unavailable [phone] Baltazar Verde Unavailable [phone] REASON FOR VISIT Seen Sooner Encounters Encounter Location Date Provider Diagnosis [facility] [address] [place] [address] 06/15/2024 Baltazar Verde Plan Of Treatment No Information Progress Notes * Inga FLORESDOB: [birth year] (74 yo F)Acc No.[id number]:06/15/2024 Progress Notes Patient: Sudeep MCKEONpretty Higgins Provider: Bassam Verde DPM :1950 A ge:73 Y S ex:Female Date:06/15/2024 Address:[address] [place], [place] [id number] Pcp:Vince Benavidez MD Subjective: * Chief Complaints: [...] 0 06/15/2024 Generated for Printi ng/Famichoacanog/eTransmitting on: 05/25/2024 08:22 AM EST
--- OUTSIDE RECORDS SUMMARY | 2025-03-25 08:22 | XMS_ITS | Clinical Summary ---
Author Organization [facility] Address [address] [place] [address] Phone Care Team Providers Care Metal Neutralizer Name Role Phone Vince Benavidez MD Primary Care Provider [phone] Surgical History Surgery Date Site/Laterality Comments COLONOSCOPY 05/17/2014 PROCEDURE: HISTORICAL COLONOSCOPY; COMMENT: tubular adenoma UPPER GASTROINTESTINAL ENDOSCOPY 05/17/2014 PROCEDURE: UPPER GI ENDOSCOPY/EXAM APPENDECTOMY 1958 PROCEDURE: CO APPENDECTOMY TONSILLECTOMY 1962 PROCEDURE: HISTORICAL TONSILLECTOMY OTHER SURGICAL HISTORY 2003 PROCEDURE: CO THYROIDECTOMY TOTAL/COMPLETE; COMMENT: total thyroidectomy CARPAL TUNNEL RELEASE 1998 and 2004 PROCEDURE: [place] NEUROPLASTY &/TRANSPOS MEDIAN NRV CARPAL TUNNE OTHER [...] DX:Diabetes mellitus type 2 with neurological manifestations ([facility]); COMMENT: Parasthesias of the feet bilaterally Urinary incontinence 12/04/2016 DX:Urinary incontinence; COMMENT: Secondary to rectal and vaginal prolapase. 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 [facility]amm[facility] [address], [address] -------- FINAL REPORT -------- Dictated By: Reed Barber Dictated Date: 10/01/2024 09:18 ET Assigned Physician: Reed Barber Reviewed and Electronically Signed By: Reed Barber Signed Date: 10/01/2024 09:27 ET Workstation ID: [id number] Transcribed By: Self Edit Transcribed Date: 10/01/2024 09:18 ET Narrative 10/01/2024 9:27 AM EDT EXAM: SCREENING MAMMOGRAPHY, BILATERAL HISTORY: SCREENING. Family history of breast cancer; sister diagnosed at age 65. COMPARISON: 05/19/22, 09/12/20 TECHNIQUE: Synthesized CC and MLO projections of each breast. Tomosynthesis of each breast in the CC and MLO projections. ADDITIONAL IMAGING: None Computer-aided detection was employed with the [employer] AI 3-D. TISSUE DENSITY: The breasts are [...] None Computer-aided detection was employed with the [employer] AI 3-D. TISSUE DENSITY: The breasts are [...] year. [facility]amm[facility] [address], [address] -------- FINAL REPORT -------- Dictated By: Reed Barber Dictated Date: 10/01/2024 09:18 ET Assigned Physician: Reed Barber Reviewed and Electronically Signed By: Reed Barber Signed Date: 10/01/2024 09:27 ET Workstation ID: [id number] Transcribed By: Self Edit Transcribed Date: 10/01/2024 09:18 ET us Self Referral Sppl IMG BI PROCEDURES Final Resul t from Last 3 Months or Most Recently Relevant to Health Maintenance Insurance MEDICARE AETNA Care Teams Metal Neutralizer Relationship Specialty Start Date End Date Vince Benavidez MD [address] [place] [address] Dr Kinjal [place] PCP - General Family Medicine 10/01/24
--- OUTSIDE RECORDS SUMMARY | 2025-03-25 08:22 | XMS_ITS | Patient Health Record ---
[facility] Address [address] [place] [address] Care Team Providers Care Librarian Special Collections Name Role Phone Vince Benavidez MD Primary Care Provider Jahaira Gross Unavailable [phone] Baltazar Verde Unavailable [phone] Allergies Allergen (clinical drug ingredient) Drug/Non Drug [...] W/U Status Risk Notes Problem Plantar fasciitis (702380152) Plantar fasciitis (M72.2) Active confirmed Resistant to previous conservative treatment Problem Plantar fasciitis of right foot (72313318171352 101) Plantar fasciitis of right foot (M72.2) Active confirmed Problem Interstitial myositis (79970680) Interstitial myositis of right foot (M60.171) Active confirmed Vital Signs Blood pressure diastolic 70 mm Hg 05/23/2024 Height 5ft1in in 05/23/2024 Blood pressure systolic 147 mm Hg 05/23/2024 Weight 207 lbs 05/23/2024 BMI 39.11 kg/m2 05/23/2024 Encounters Encounter Location Date Provider Diagnosis [facility] [address] 04/17/2024 Jahaira Perica Pain in right foot M79.671 ; Plantar fasciitis of right foot M72.2 ; Calcaneal spur, right foot M77.31 ; Interstitial myositis of right foot M60.171 and Bursitis of right foot M77.51 [facility] [address] [address] 05/23/2024 Jahaira Perica Plantar fasciitis of right [...] Date Coverage End Date [employer] [address] [place] [address] [id number] Inga Flores Self - patient is the insured Medical (General) History Medical History History ICD Code Anxiety Back,Hip,and Knee pain Cancer covid-19 Depression Diabetic Diverticulosis High Blood Pressure thyroid Mumps Chicken pox Surgical History Surgery Date(Month/Year) hysterectomy 06/1989 bladder suspension 03/1994 Hernia Repair 12/2012 tonsillectomy 1966 appendectomy 1960
--- OUTSIDE RECORDS SUMMARY | 2025-03-25 08:23 | XMS_ITS | Clinical Summary ---
Author Organization [facility] Address [address] [place] [phone] Phone Care Team Providers Care Paint Stock Clerk Name Role Phone Vince Benavidez MD [...] 11:59 PM EDT Hospital Encounter [facility] [address] [address] Nicole Gerardo MD Discharge Disposition: Home or Self Care 01/29/2025 8:20 AM EDT Office Visit [facility] [address] [place] [address] Nicole Gerardo MD Postoperative hypothyroidism (Primary Dx); History of thyroid cancer from Last 3 Months Family History Medical [...] 8:20 AM EDT Office Visit [facility] [address] [place] [phone] Nicole Gerardo MD [address] [place] [phone] [email or web address] Health Maintenance Due Date Last Done Comments [...] EDT) THYROGLOBULIN ANTIBODY, S <1.8 <4.0 IU/mL [facility] Comment: (NOTE) ADDITIONAL INFORMATION PLEASE NOTE: The given thyroglobulin antibody (TgAb) reference cutoff of <4.0 IU/mL is for the evaluation of autoimmune thyroiditis. A cutoff of <1.8 IU/mL may be more suitable for the detection of potential thyroglobulin antibody (TgAb) interference in thyroglobulin immunoassays. The thyroglobulin antibody testing method is an immunoenzymatic assay manufactured by [employer] and performed on the [employer] DXI 800. Values obtained from different assay methods or kits may be different and cannot be used interchangeably. The results cannot be interpreted as absolute evidence for the presence or absence of malignant disease. Blood 02/08/2025 10:2 7 AM EDT 02/08/2025 10:29 AM EDT Nicole Gerardo MD LAB BLOOD ORDERABLES Final Res ult [facility] [address] [place] [address] * TSH with reflex (02/08/2025 10:27 AM EDT) TSH 0.75 0.27 - 4.20 uIU/mL [facility] Blood 02/08/2025 10:2 7 AM EDT 02/08/2025 10:29 AM EDT Nicole Gerardo MD LAB BLOOD BKR ORDERABLES Final Result Performing Organization Address [facility]/ZIP Co de Phone Number [address] [address] * Thyroglobulin, Tumor Marker (02/08/2025 10:27 AM EDT) THYROGLOBULIN <0.1 < or = 33 ng/mL [facility] THYROGLOBULIN AB <1.8 <1.8 IU/mL [facility] THYROGLOBULIN INTRP SEE NOTE [facility] Comment: (NOTE) Thyroglobulin (Tg) reference intervals are [...] testing methods are immunoenzymatic assays manufactured by [employer] and performed on the [employer] DXI 800. Values obtained from different assay methods or kits may be different and cannot be used interchangeably. The results cannot be interpreted as absolute evidence for the presence or absence of malignant disease. Blood 02/08/2025 10:2 7 AM EDT 02/08/2025 10:29 AM EDT Nicole Gerardo MD LAB BLOOD ORDERABLES Final Res ult [facility] [address] [place] [address] * [facility] FOR RESULT ENTRY ONLY (01/08/2019) Karen Mckenzie MD HEALTH MAINTENANCE F inal Result from Last 3 Months or Most Recently Relevant to Health Maintenance [place] [address] [place] [address] POS EPO [facility] [place] [address] [place], [place] [address]O POS EPO [employer] H[employer] POS EPO Care Teams Paint Stock Clerk Relationship Specialty Start Date End Date Vince Benavidez MD PCP - General Family Medicine 10/05/22 Additional Source Comments The information contained in this document represents components of the legal health record. It is not the complete legal health record.[facility]
[2025-03-25 11:21] LABS: Appearance Urine Clear; Glucose Urine UA Negative (Negative); PH 5.5 (5.0-9.0); Specific Gravity - Urine 1.020 (1.005-1.025); UMIC TRIGGER UACC YES
[2025-03-25 11:25] LABS: UACC Culture Trigger YES
[2025-03-25 11:53] LABS: Microalbum/Creatinine Ratio Ur 13.5 ug/mg cr (<30)
[2025-03-25 14:53] LABS: Alanine Aminotransferase 20 U/L (0-31); Albumin Level 4.2 g/dL (3.5-5.0); Alkaline Phosphatase 94 U/L (39-117); Anion Gap 14 (12-20); Aspartate Amino Transferase 27 U/L (5-31); Blood Urea Nitrogen 17 mg/dL (9-16); Calcium 8.7 mg/dL (8.4-10.2); Carbon Dioxide 26 mmol/L (22-29); Chloride 103 mmol/L (96-108); Estimated Glomerular Filt Rate 56; Potassium 3.2 mmol/L (3.3-5.1); Sodium 140 mmol/L (135-145); Total Protein 7.2 g/dL (6.5-8.0)
[2025-03-25 15:14] LABS: Free T4 (Free Thyroxine) 1.16 ng/dL (0.71-1.85); Thyroid Stimulating Hormone 1.25 uIU/mL (0.32-4.0)
== END 2025-03-25 08:15 | disposition home or self-care (01) ==
LOC: HO.WFDLDS 08:14
PROVIDERS: Visit Provider Family Medicine
DX: Z00.00 Encounter for general adult medical examination without abnormal findings (principal); I10 Essential (primary) hypertension; R74.8 Abnormal levels of other serum enzymes; E03.9 Hypothyroidism, unspecified
CPT/HCPCS: 36415; 80053; 81001; 82043; 82570; 84439; 84443; 84480; 87086; 87088; 87186